=== PATIENT | male | born 1945 | race American Indian/Alaskan Native ===

== ENCOUNTER 2017-04-15 08:36 | Outpatient (CLI) | payer MEDICARE ==
--- NOTE | 2017-04-16 07:57 | Cat Scan Report ---
CT ABDOMEN PELVIS WITHOUT CONTRAST: HISTORY: Malignant neoplasm of prostate. COMPARISON: 08/18/13. TECHNIQUE: Helical CT in 1.25mm intervals without IV contrast. Sagittal and coronal reconstructions. FINDINGS: Lung bases: The visualized lung bases are adequately aerated. Minor atelectatic changes are noted. No nodule, infiltrate or pleural effusion. Liver: Normal. Biliary system: Normal. Pancreas: Normal. Spleen: Normal. Kidneys/ureters/bladder: Normal. Adrenal glands: Normal. Aorta: Normal. Intestines: Mild diverticulosis of the colon is unchanged. No acute inflammatory changes, focal bowel wall thickening or obstruction. Appendix: Normal. Pelvic viscera: The prostate gland remains mildly enlarged measuring 5.8 x 4.5 cm in axial plane. Ascites: None. Adenopathy: No pathologic adenopathy has developed. Musculoskeletal: Moderate thoracolumbar spondylosis is stable. No blastic bony lesions consistent with bony metastasis are identified. IMPRESSION: No evidence for metastatic disease on noncontrast CT. Mild colonic diverticulosis, stable. Thoracolumbar spondylosis, stable. Mild prostatic enlargement.
--- NOTE | 2017-04-16 08:04 | Nuclear Medicine Report ---
BONE SCAN: History: Initial staging of prostate cancer. Comparison: No previous bone scan. Correlation is made with the CT abdomen pelvis without contrast performed the same day. Findings: There is normal renal and soft tissue activity. Contamination in the perineum is noted. Injection site in the left hand is noted. There is moderate degenerative uptake in the shoulders, sternoclavicular joints, right knee and feet consistent with degenerative change. There is moderate uptake throughout the thoracic spine which is most pronounced near the T10 or T11 level. There is extensive degenerative disc disease at this level on CT. There is local also focal uptake at the level of L4-5 consistent with facet arthropathy. No convincing metastatic pattern is identified. IMPRESSION: Degenerative uptake as described. No evidence for metastatic disease to the bones.
== END 2017-04-15 08:37 | disposition home or self-care (01) ==
LOC: NM 08:36
PROVIDERS: ATTEND Urology
DX: C61 Malignant neoplasm of prostate (principal); K57.30 Diverticulosis of large intestine without perforation or abscess without bleeding; N40.0 Benign prostatic hyperplasia without lower urinary tract symptoms; M47.894 Other spondylosis, thoracic region; M51.34 Other intervertebral disc degeneration, thoracic region; I10 Essential (primary) hypertension; I25.10 Atherosclerotic heart disease of native coronary artery without angina pectoris; E78.00 Pure hypercholesterolemia, unspecified
CPT/HCPCS: 74176; 78306; A9503

== ENCOUNTER 2017-09-01 06:02 | Observation (INO) | payer MEDICARE ==
[2017-08-26 09:53] LABS: Basophils % (Auto) 0.8 % (0.0-1.8); Eosinophils # (Auto) 0.3 K/mm3 (0.0-0.4); Eosinophils % (Auto) 5.5 % (0.0-4.3); Hemoglobin 14.5 gm/dl (11.8-15.2); Lymphocytes % (Auto) 42.4 % (13.4-35.0); Mean Corpuscular HGB Conc 33 % (32-34); Mean Corpuscular Hemoglobin 26 pg (28-32); Mean Corpuscular Volume 79 fl (84-94); Monocytes # (Auto) 0.4 K/mm3 (0.0-0.8); Monocytes % (Auto) 8.9 % (0.0-7.3); Platelet Count 295 K/mm3 (140-440); Red Blood Count 5.58 M/mm3 (3.65-5.03); Red Cell Distribution Width 14.4 % (13.2-15.2)
[2017-08-26 10:05] LABS: INR 0.88 (0.87-1.13)
[2017-08-26 10:06] LABS: Partial Thromboplastin Time 31.1 Sec. (24.2-36.6)
[2017-08-26 10:10] LABS: Albumin 4.1 g/dL (3.9-5); Calcium 9.3 mg/dL (8.4-10.2)
--- NOTE | 2017-08-28 12:18 | Anesthesia Consultation ---
Anesthesia Consult and Med Hx Date of service: 08/28/17 - Airway Anesthetic Teeth Evaluation: Good ROM Head & Neck: Adequate Mental/Hyoid Distance: Adequate Mallampati Class: Class II Intubation Access Assessment: Probably Good - Pulmonary Exam CTA: Yes - Cardiac Exam Cardiac Exam: RRR - Pre-Operative Health Status ASA Pre-Surgery Classification: ASA3 Proposed Anesthetic Plan: General (pending cardiac clear, pt reported angina, SOB) - Pulmonary Hx Smoking: Yes (CHEWING TOBACCO) SOB: Yes Hx Sleep Apnea: No (WENDY PRE SCREEN HIGH RISK) - Cardiovascular System Hx Hypertension: Yes (X 8 YRS) Hx Coronary Artery Disease: Yes Hx Heart Attack/AMI: No - Central Nervous System CVA: Yes (5 YRS AGO , RT SIDED WEAKNESS-STATES NO BLOOD THINNERS) Hx Back Pain: Yes Hx Psychiatric Problems: No - Gastrointestinal Hx Gastroesophageal Reflux Disease: Yes (takes ranatidine) - Hematic Hx Anemia: No - Other Systems Hx Alcohol Use: No Hx Substance Use: No Hx Cancer: No
[~2017-09-01 06:02] MED LIST: NEURONTIN PO NR; PEPCID IV NR
[2017-09-01] MEDS ORDERED: NACL BACTERIOSTATIC INFILTRATI ONE (06:37)
[2017-09-01] MEDS: LACTATED RINGERS 1,000 ML IV SCH ×2 (06:50→17:02)
[2017-09-01] MEDS ORDERED: ANCEF/STERILE WATER 2 GM/20 ML IV NR (07:00)
[2017-09-01] MEDS ORDERED: ZEMURON IV ONE ×2 (07:20→10:08)
[2017-09-01] MEDS ORDERED: XYLOCAINE MPF 2% ONE (07:20)
[2017-09-01] MEDS ORDERED: K-DUR PO NR (07:25)
[2017-09-01] MEDS ORDERED: DILAUDID ONE (07:28)
[2017-09-01] MEDS ORDERED: DIPRIVAN 10 MG/ML IV ONE (07:28)
[2017-09-01] MEDS ORDERED: ZOFRAN IV PRN ×2 (07:32→11:27)
--- NOTE | 2017-09-01 07:32 | Anesthesia Day of Surgery ---
Anesthesia Day of Surgery - Day of Surgery Patient Examined: Yes Patient H&P Reviewed: Yes Patient is NPO: Yes
[2017-09-01] MEDS ORDERED: NACL 0.9% 100 ML ONE (07:38)
[2017-09-01] MEDS ORDERED: METHYLENE BLUE ONE (07:43)
[2017-09-01] MEDS ORDERED: LACTATED RINGERS 1,000 ML IV SCH (08:00)
[2017-09-01] MEDS ORDERED: VERSED IV NR (08:00)
[2017-09-01] MEDS ORDERED: LACTATED RINGERS 1,000 ML ONE ×3 (08:11→10:01)
[2017-09-01] MEDS ORDERED: CALCIUM CHLORIDE IV ONE ×2 (08:12→10:27)
[2017-09-01] MEDS ORDERED: ACD-A 500 ML IV ONE (08:12)
[2017-09-01] MEDS ORDERED: THROMBIN (BOVINE) TP ONE ×2 (08:12→10:27)
[2017-09-01] MEDS ORDERED: ePHEDrine SULFATE ONE (09:57)
[2017-09-01] MEDS ORDERED: DEXMEDETOMIDINE IV ONE (10:00)
[2017-09-01] MEDS ORDERED: MARCAINE 0.5% 30 ML INFILTRATI ONE (10:25)
[2017-09-01] MEDS ORDERED: WATER FOR IRRIG STERILE IR ONE (10:27)
[2017-09-01] MEDS ORDERED: ACD-A IV ONE (10:27)
[2017-09-01] MEDS ORDERED: MARCAINE 0.5% INFILTRATI ONE (10:27)
[2017-09-01] MEDS ORDERED: NACL 0.9% IR ONE (10:27)
[2017-09-01] MEDS ORDERED: ZOFRAN ONE (10:34)
[2017-09-01] MEDS ORDERED: ROBINUL ONE (10:34)
[2017-09-01] MEDS ORDERED: NEOSTIGMINE ONE (10:34)
--- NOTE | 2017-09-01 11:25 | Short Stay Summary ---
Short Stay Documentation Date of service: 09/01/17 - History H&P: obtained from office - Allergies and Medications Current Medications: Allergies meperidine [From Demerol] Allergy (Verified 08/22/17 11:31) Itching Home Medications Medication Instructions Recorded Confirmed Last Taken Type Amlodipine Besylate 10 mg PO DAILY 02/23/15 08/22/17 09/01/17 05:15 History Ibuprofen [Motrin 600 MG tab] 600 mg PO TID PRN 04/06/15 09/01/17 08/22/17 History Clopidogrel Bisulfate [Plavix] 75 mg PO DAILY 08/26/17 09/01/17 08/26/17 History Losartan/Hydrochlorothiazide 1 each PO DAILY 08/26/17 08/26/17 09/01/17 05:15 History [Losartan-Hctz 100-25 mg Tab] Pregabalin [Lyrica] 75 mg PO BID 08/26/17 08/26/17 09/01/17 05:15 History Simvastatin [Zocor TAB] 20 mg PO QHS 08/26/17 09/01/17 08/31/17 History Active Medications Cefazolin Sodium (Ancef/Sterile Water 2 Gm/20 Ml) 2 gm IV PREOP NR Stop: 09/01/17 23:59 Celecoxib (Celebrex) 200 mg PO PREOP NR Stop: 09/01/17 23:59 Last Admin: 09/01/17 06:40 Dose: 200 mg Famotidine (Pepcid) 20 mg IV PREOP NR Stop: 09/01/17 23:59 Last Admin: 09/01/17 07:08 Dose: 20 mg Gabapentin (Neurontin) 300 mg PO PREOP NR Stop: 09/01/17 23:59 Last Admin: 09/01/17 06:40 Dose: 300 mg Hydromorphone HCl (Dilaudid) 0.5 mg IV Q10MIN PRN PRN Reason: Pain , Severe (7-10) Stop: 09/01/17 16:00 Lactated Ringer's (Lactated Ringers) 1,000 mls @ 100 mls/hr IV DIRECT ADAMA Last Admin: 09/01/17 06:50 Dose: 100 mls/hr Lactated Ringer's (Lactated Ringers) 1,000 mls @ 125 mls/hr IV DIRECT ADAMA Potassium Chloride (Kcl 10meq/100ml) 10 meq in 100 mls @ 100 mls/hr IV Q1H ADAMA Stop: 09/01/17 11:59 Midazolam HCl (Versed) 2 mg IV PREOP NR Stop: 09/01/17 23:59 Ondansetron HCl (Zofran) 4 mg IV ONCE PRN PRN Reason: Nausea And Vomiting Stop: 09/01/17 16:00 Potassium Chloride (K-Dur) 40 meq PO ONCE NR Stop: 09/01/17 12:00 Last Admin: 09/01/17 07:45 Dose: 40 meq - Brief post op/procedure progress note Date of procedure: 09/01/17 Pre-op diagnosis: prostate ca (psa 24, ollie Post-op diagnosis: same Procedure: robotic prostatectomy Anesthesia: GETA Surgeon: ELENA CASTRO Estimated blood loss: other (300c) Pathology: list (prostate, prostate node) Specimen disposition: to lab Condition: stable - Hospital course Hospital course: norco,cipro, post op info on chart toan removed k trending up--pt to finish kcl (pre op ) & f/u with pcp (Dr. Garrido) - Disposition Condition at discharge: Stable Short Stay Discharge Plan Follow up with: JOSSELYN GARRIDO MD [Primary Care Provider] - 7 Days
[2017-09-01] MEDS ORDERED: AMBIEN PO PRN (11:27)
[2017-09-01] MEDS ORDERED: NARCAN 0.4 MG/1 ML IV PRN (11:27)
[2017-09-01] MEDS: DILAUDID IV PRN ×2 (11:54→12:04)
[2017-09-01] MEDS ORDERED: ANCEF/NS 1 GM/50 ML 1 GM/50 ML BAG IV SCH (12:00)
--- NOTE | 2017-09-01 12:26 | Post Anesthesia Evaluation ---
- Post Anesthesia Evaluation Patient Participated: Yes Airway Patent: Yes Stable Respiratory Function: Yes Nausea/Vomiting: No Temp > 96.8F: Yes Pain Manageable: Yes Adequeate Hydration: Yes Anesthesia Complications: No
[2017-09-01] MEDS: MORPHINE IV PRN ×2 (14:21→22:20)
[2017-09-01 14:38] LABS: Hematocrit 36.2 % (35.5-45.6); Hemoglobin 12.4 gm/dl (11.8-15.2); Mean Corpuscular HGB Conc 34 % (32-34); Mean Corpuscular Hemoglobin 27 pg (28-32); Mean Corpuscular Volume 78 fl (84-94); Platelet Count 247 K/mm3 (140-440); Red Blood Count 4.67 M/mm3 (3.65-5.03); Red Cell Distribution Width 14.2 % (13.2-15.2)
[2017-09-01 14:59] LABS: BUN/Creatinine Ratio 17; Blood Urea Nitrogen 19 mg/dL (9-20); Calcium 8.7 mg/dL (8.4-10.2); Hemolysis Index 1
--- NOTE | 2017-09-01 15:09 | Operative Report ---
PREOPERATIVE DIAGNOSES: Prostate cancer, PSA 24, Amairani score of 6. POSTOPERATIVE DIAGNOSES: Prostate cancer, PSA 24, Amairani score of 6. PROCEDURE: Robotic-assisted laparoscopic prostatectomy. SURGEON: Jin Katz MD CLASSIFICATION INSPECTOR: Tigist Clemente. ANESTHESIA: General. ESTIMATED BLOOD LOSS: 300 mL. FLUIDS: Crystalloid 125 of Cell Saver. COMPLICATIONS: No complications. DRAINS: Brennon-Singleton drain x 1. INDICATIONS: This patient is a 72-year-old gentleman who has been followed in by our service for erectile dysfunction and BPH. He has had a biopsy in 2009 for PSA of 7.8, which was negative, repeated in 2011, which was negative. Prostate ultrasound revealed a 70 gram gland. His PSA increased to 20 and repeat was 24. Biopsy in 02/2017 revealed a Amairani 6 adenocarcinoma of the prostate, left side. Bone scan, CT scan was negative except for some degenerative joint disease. The patient was noted to have a left inguinal hernia and wanted evaluation at the same time. DESCRIPTION OF PROCEDURE: The patient was taken to the operative suite, placed in a supine position. After adequate general anesthesia, he was placed in a modified dorsal lithotomy position, prepped and draped in a sterile fashion. Mack catheter was placed on the operative field. A 1 cm supraumbilical incision was made. Towel clips were placed. Anterior traction allowed Veress needle to be placed. Drop test was negative. Opening pressure was 1 cm of water. Insufflation to 15 cm of water was performed without difficulty. A 15 cm cephalad to the pubic symphysis was marked, 10 cm lateral and additional 10 cm lateral was marked and after a 10 mm port was placed in the supraumbilical incision, the rest of the ports were placed under direct vision. No intraabdominal injury could be appreciated. No signs of metastasis. Surveillance of the abdomen to look at the left inguinal hernia, the patient had adhesions in that area on the left side making it very difficult to approach it intraabdominally and therefore, attempts to repair were not done. The second arch posterior to the prostate and bladder was identified. It was scored exposing the seminal vesicles and vas deferens. Dissection to the apex of the prostate was performed without difficulty. Seminal vesicles and vas deferens were dissected out. Vas deferens was then transected. Attention was then taken to the anterior abdominal wall, which was scored lateral to the lateral umbilical ligament. Bladder flap was taken down exposing the pubic rami. Endopelvic fascia was opened bilaterally without difficulty. Dorsal vein complex was controlled with a 60 mm vascular stapler without difficulty. Manipulation with the Mack was performed to identify the bladder neck, dissection of anterior bladder neck was performed exposing the Mack catheter, appeared to have a node at this area which was dissected out and sent to pathology for routine evaluation. Mack catheter could be appreciated, balloon was deflated, then used for anterior traction. Posterior bladder neck was transected exposing the seminal vesicles and vas deferens. They were pulled up anteriorly. Lateral pedicles were transected with a 60 mm vascular stapler. Dissection was taken to the apex of the prostate, which was dissected off and then placed in the EndoCatch bag and retracted laterally. Copious irrigation was performed. Adequate hemostasis achieved. Bladder neck reconstruction was performed at the 5 o'clock position using 2-0 Vicryl in an interrupted fashion. Double armed V-Loc stitch was placed at the 6 o'clock position of the bladder neck corresponding aspect of the urethra. The 2-0 Vicryl helper stitch was placed at the 12 o'clock position of the bladder neck. Running V-Loc stitch was performed bilaterally. A new 18-Tajik Mack catheter was placed into the bladder. Anastomosis was cinched down. It was irrigated. No clot in the irrigant. Mack catheter was in good position, 15 mL of sterile water. An anterior abdominal wall stitch was placed with the V-Loc stitch to allow better continence. Platelet rich plasma and platelet poor plasma was injected around the prostatic fossa and anastomosis. The platelet membrane was placed on the anastomosis. A 10 mm Brennon-Singleton drain was brought out through the left-sided port, tied into position with 2-0 silk. The robotic cart was undocked. The prostate was transferred to the supraumbilical incision which was extended to allow removal. Rectus fascia was closed using a 2-0 Vicryl in interrupted fashion. Skin was closed with a 3-0 Monocryl in interrupted fashion, 2-0 silk was used to secure the Brennon-Singleton drain. Mack catheter site port was tied over, was folded over and secured with a 0 silk in interrupted fashion. The patient tolerated the procedure well and was extubated and taken to recovery room. He will be observed overnight and go home on [facility]. JOB# [id number] ZEN/BRENDA
[2017-09-01] MEDS: KCL 10MEQ/100ML 10 MEQ/100 ML BAG IV SCH ×2 (15:38→15:39)
[2017-09-01] MEDS: ceFAZolin 1 GM in NACL 0.9% 20 ML IV SCH (15:58)
[2017-09-01] MEDS ORDERED: K-DUR PO ONE (16:00)
[2017-09-01 16:06] LABS: Basophils % (Manual) 0 % (0.0-1.8); Eosinophils % (Manual) 0 % (0.0-4.3); Total Cells Counted 100
[2017-09-01 16:07] LABS: Anisocytosis 1+; Ovalocytes Few
[2017-09-01] MEDS: NORCO 5/325 PO PRN (16:16)
[2017-09-01] MEDS ORDERED: PRAVACHOL PO SCH (22:00)
[2017-09-01] MEDS ORDERED: NON-FORMULARY (Simvastatin 20 MG) PO SCH (22:00)
[2017-09-01] MEDS ORDERED: ceFAZolin 1 GM in NACL 0.9% 20 ML IV SCH (22:00)
[2017-09-01] MEDS: LYRICA PO SCH (22:21)
[2017-09-02] MEDS: LACTATED RINGERS 1,000 ML IV SCH (03:23)
[2017-09-02] MEDS: ceFAZolin 1 GM in NACL 0.9% 20 ML IV SCH (03:28)
[2017-09-02 05:24] LABS: Basophils % (Auto) 0.4 % (0.0-1.8); Eosinophils % (Auto) 0.7 % (0.0-4.3); Hematocrit 38.1 % (35.5-45.6); Hemoglobin 12.3 gm/dl (11.8-15.2); Lymphocytes # (Auto) 1.5 K/mm3 (1.2-5.4); Mean Corpuscular HGB Conc 32 % (32-34); Mean Corpuscular Volume 79 fl (84-94); Monocytes # (Auto) 0.4 K/mm3 (0.0-0.8); Monocytes % (Auto) 5.9 % (0.0-7.3); Platelet Count 267 K/mm3 (140-440); Red Blood Count 4.82 M/mm3 (3.65-5.03); Red Cell Distribution Width 14.3 % (13.2-15.2)
[2017-09-02 05:36] LABS: Mean Corpuscular Hemoglobin 26 pg (28-32)
[2017-09-02 05:42] LABS: BUN/Creatinine Ratio 12; Blood Urea Nitrogen 14 mg/dL (9-20); Calcium 8.6 mg/dL (8.4-10.2); Hemolysis Index 2
--- NOTE | 2017-09-02 06:44 | History and Physical Report ---
History of Present Illness Date of admission: 09/01/17 11:27 Chief complaint: I got this catheter in History of present illness: 72 YO Male with Obesity,GERD, WENDY, HTN, CAD, Lumbar Pain, CVA, NIcotine Dependence, CAP S/P Prostatectomy. Consult placed for medical management. Pt seen and evaluated postoperatively. Pt resting comfortably. Pt denies fever, chills, CP, Palpitations, NVD, Syncope, Headache, Productive cough, or skin rash. No reported nursing events. Pt states that his pain in controlled. Pt and daughter at bedside. Past History Past Medical History: CAD, cancer, GERD, hypertension, stroke Past Surgical History: Other (Prostatectomy) Social history: smoking Family history: hypertension Medications and Allergies Allergies Allergy/AdvReac Type Severity Reaction Status Date / Time meperidine [From Demerol] Allergy Itching Verified 08/22/17 11:31 Home Medications Medication Instructions Recorded Confirmed Last Taken Type Amlodipine Besylate 10 mg PO DAILY 02/23/15 08/22/17 09/01/17 05:15 History Ibuprofen [Motrin 600 MG tab] 600 mg PO TID PRN 04/06/15 09/01/17 08/22/17 History Clopidogrel Bisulfate [Plavix] 75 mg PO DAILY 08/26/17 09/01/17 08/26/17 History Losartan/Hydrochlorothiazide 1 each PO DAILY 08/26/17 08/26/17 09/01/17 05:15 History [Losartan-Hctz 100-25 mg Tab] Pregabalin [Lyrica] 75 mg PO BID 08/26/17 08/26/17 09/01/17 05:15 History Simvastatin [Zocor TAB] 20 mg PO QHS 08/26/17 09/01/17 08/31/17 History Active Meds: Active Medications Acetaminophen/Hydrocodone Bitart (Jet 5/325) 2 each PO Q4H PRN PRN Reason: Pain, Moderate (4-6) Last Admin: 09/01/17 16:16 Dose: 2 each Amlodipine Besylate (Norvasc) 10 mg PO DAILY ADAMA Hydrochlorothiazide (Hctz) 25 mg PO QDAY ADAMA Lactated Ringer's (Lactated Ringers) 1,000 mls @ 100 mls/hr IV DIRECT ADAMA Last Admin: 09/02/17 03:23 Dose: 100 mls/hr Lactated Ringer's (Lactated Ringers) 1,000 mls @ 125 mls/hr IV DIRECT [facility] Losartan Potassium (Cozaar) 100 mg PO QDAY [facility] Morphine Sulfate (Morphine) 2 mg IV Q4H PRN PRN Reason: Pain, Moderate (4-6) Last Admin: 09/01/17 22:20 Dose: 2 mg Naloxone HCl (Narcan 0.4 Mg/1 Ml) 0.1 mg IV Q2MIN PRN PRN Reason: Res Rate </= 8 or 02 SAT < 92% Ondansetron HCl (Zofran) 4 mg IV Q8H PRN PRN Reason: Nausea And Vomiting Pravastatin Sodium (Pravachol) 40 mg PO QHS [facility] Last Admin: 09/01/17 23:12 Dose: 40 mg Pregabalin (Lyrica) 75 mg PO BID [facility] Last Admin: 09/01/17 22:21 Dose: 75 mg Zolpidem Tartrate (Ambien) 5 mg PO QHS PRN PRN Reason: Sleep Review of Systems Constitutional: no weight loss, no weight gain, no fever, no chills Ears, nose, mouth and throat: no ear pain, no ear discharge, no tinnitis, no decreased hearing, no nose pain, no nasal congestion Cardiovascular: no chest pain, no orthopnea, no palpitations, no rapid/ irregular heart beat, no edema, no syncope Respiratory: no cough, no cough with sputum, no excessive sputum, no hemoptysis , no shortness of breath Gastrointestinal: no abdominal pain, no nausea, no vomiting, no diarrhea Genitourinary Male: no hematuria, no flank pain, no discharge, no urinary frequency, no urinary hesitancy Rectal: no pain, no incontinence, no bleeding Musculoskeletal: no neck stiffness, no neck pain, no shooting arm pain, no arm numbness/tingling, no low back pain, no shooting leg pain, no leg numbness/ tingling Integumentary: no rash, no pruritis, no redness, no sores, no wounds, no jaundice Neurological: no head injury, no transient paralysis, no paralysis, no parathesias, no numbness, no tingling, no seizures, no syncope Psychiatric: no anxiety, no memory loss, no change in sleep habits, no sleep disturbances Endocrine: no cold intolerance, no heat intolerance, no polyphagia, no excessive thirst, no weight change Hematologic/Lymphatic: no easy bruising, no easy bleeding, no lymphadenopathy, no lymphedema Allergic/Immunologic: no urticaria, no allergic rhinitis, no wheezing, no persistent infections, no anaphylaxis, no angioedema Exam - Constitutional Vitals: Temp Pulse Resp BP Pulse Ox 98.6 F 68 17 112/58 98 09/02/17 04:33 09/02/17 04:33 09/02/17 04:33 09/02/17 04:33 09/02/17 04:33 General appearance: Present: no acute distress, well-nourished - EENT Eyes: Present: PERRL ENT: hearing intact, clear oral mucosa - Neck Neck: Present: supple, normal ROM - Respiratory Respiratory effort: normal Respiratory: bilateral: CTA - Cardiovascular Heart Sounds: Present: S1 & S2. Absent: rub, click - Extremities Extremities: pulses symmetrical, No edema Peripheral Pulses: within normal limits - Abdominal General gastrointestinal: Present: soft, non-tender, non-distended, normal bowel sounds Male genitourinary: Present: normal - Integumentary Integumentary: Present: clear, warm, dry - Musculoskeletal Musculoskeletal: gait normal, strength equal bilaterally - Psychiatric Psychiatric: appropriate mood/affect, intact judgment & insight - Neurologic Neurologic: CNII-XII intact, moves all extremities Results - Labs CBC & Chem 7: 09/02/17 04:08 09/02/17 04:08 Labs: Abnormal lab results 09/01/17 09/01/17 09/01/17 Range/Units 06:50 13:58 13:58 MCV 78 L (84-94) fl MCH 27 L (28-32) pg Seg Neutrophils % (40.0-70.0) % Seg Neuts % (Manual) 96.0 H (40.0-70.0) % Lymphocytes % (Manual) 2.0 L (13.4-35.0) % Seg Neutrophils # Man 9.7 H (1.8-7.7) K/mm3 Lymphocytes # (Manual) 0.2 L (1.2-5.4) K/mm3 Potassium 2.5 L* 2.7 L* (3.6-5.0) mmol/L Glucose 133 H (75-100) mg/dL 09/02/17 09/02/17 Range/Units 04:08 04:08 MCV 79 L (84-94) fl MCH 26 L (28-32) pg Seg Neutrophils % 72.0 H (40.0-70.0) % Seg Neuts % (Manual) (40.0-70.0) % Lymphocytes % (Manual) (13.4-35.0) % Seg Neutrophils # Man (1.8-7.7) K/mm3 Lymphocytes # (Manual) (1.2-5.4) K/mm3 Potassium 2.8 L* (3.6-5.0) mmol/L Glucose (75-100) mg/dL Assessment and Plan - Patient Problems (1) Obesity Current Visit: Yes Status: Acute Qualifiers: Body mass index: BMI 32.0-32.9 Plan to address problem: Increased physical activity, balanced diet at discharge. (2) Nicotine dependence Current Visit: Yes Status: Acute Qualifiers: Substance use status: in withdrawal Plan to address problem: supportive care, Nicotine Cessation counseling. (3) WENDY (obstructive sleep apnea) Current Visit: Yes Status: Acute Plan to address problem: supplemental oxygen, nebulizer therapy prn, NIPPV as clinically indicated, Incentive spirometry to patient. (4) Hypertension Current Visit: No Status: Chronic Qualifiers: Hypertension type: essential hypertension Qualified Code(s): I10 - Essential (primary) hypertension Plan to address problem: monitor bp q shift, IV hydralazine prn, (5) DVT prophylaxis Current Visit: Yes Status: Acute
[2017-09-02] MEDS: NORCO 5/325 PO PRN (09:01)
[2017-09-02 09:02] VITALS: BP 136/70
[2017-09-02] MEDS: LYRICA PO SCH (09:02)
[2017-09-02] MEDS ORDERED: COZAAR PO SCH (10:00)
[2017-09-02] MEDS ORDERED: NON-FORMULARY (Losartan/Hydrochlorothiazide [Losartan-Hctz 100-25 Mg Tab] 1 EACH) PO SCH (10:00)
[2017-09-02] MEDS ORDERED: HCTZ PO SCH (10:00)
[2017-09-02] MEDS ORDERED: NORVASC PO SCH (10:00)
[2017-09-02] MEDS ORDERED: NACL 0.9% 1000 ML 1,000 ML with KCL 80 MEQ IV ONE (16:07)
--- NOTE | 2017-09-02 16:10 | Progress Note ---
Assessment and Plan Assessment and plan: 72 YO Male with Obesity,GERD, WENDY, HTN, CAD, Lumbar Pain, CVA, NIcotine Dependence, CAP S/P Prostatectomy. Consult placed for medical management. Pt seen and evaluated postoperatively. Pt resting comfortably. Pt denies fever, chills, CP, Palpitations, NVD, Syncope, Headache, Productive cough, or skin rash. No reported nursing events. Pt states that his pain in controlled. Pt and daughter at bedside. (1) Obesity Current Visit: Yes Status: Acute Qualifiers: Body mass index: BMI 32.0-32.9 Plan to address problem: Increased physical activity, balanced diet at discharge. (2) Nicotine dependence Current Visit: Yes Status: Acute Qualifiers: Substance use status: in withdrawal Plan to address problem: supportive care, Nicotine Cessation counseling. (3) WENDY (obstructive sleep apnea) Current Visit: Yes Status: Acute Plan to address problem: supplemental oxygen, nebulizer therapy prn, NIPPV as clinically indicated, Incentive spirometry to patient. (4) Hypertension Current Visit: No Status: Chronic Qualifiers: Hypertension type: essential hypertension Qualified Code(s): I10 - Essential (primary) hypertension Plan to address problem: monitor bp q shift, IV hydralazine prn, LOW POTASSIUM -replete IV (5) DVT prophylaxis Current Visit: Yes Status: Acute Hospitalist Physical - Constitutional Vitals: Temp Pulse Resp BP Pulse Ox 98.6 F 54 L 20 136/70 98 09/02/17 04:33 09/02/17 09:01 09/02/17 09:01 09/02/17 09:01 09/02/17 04:33 General appearance: Present: no acute distress, well-nourished Results - Labs CBC & Chem 7: 09/02/17 04:08 09/02/17 04:08 Labs: Laboratory Last Values WBC 7.1 K/mm3 (4.5-11.0) 09/02/17 04:08 RBC 4.82 M/mm3 (3.65-5.03) 09/02/17 04:08 Hgb 12.3 gm/dl (11.8-15.2) 09/02/17 04:08 Hct 38.1 % (35.5-45.6) 09/02/17 04:08 MCV 79 fl (84-94) L 09/02/17 04:08 MCH 26 pg (28-32) L 09/02/17 04:08 MCHC 32 % (32-34) 09/02/17 04:08 RDW 14.3 % (13.2-15.2) 09/02/17 04:08 Plt Count 267 K/mm3 (140-440) 09/02/17 04:08 Lymph % (Auto) 21.0 % (13.4-35.0) 09/02/17 04:08 Meagher % (Auto) 5.9 % (0.0-7.3) 09/02/17 04:08 Eos % (Auto) 0.7 % (0.0-4.3) 09/02/17 04:08 Baso % (Auto) 0.4 % (0.0-1.8) 09/02/17 04:08 Lymph # 1.5 K/mm3 (1.2-5.4) 09/02/17 04:08 Meagher # 0.4 K/mm3 (0.0-0.8) 09/02/17 04:08 Eos # 0.0 K/mm3 (0.0-0.4) 09/02/17 04:08 Baso # 0.0 K/mm3 (0.0-0.1) 09/02/17 04:08 Add Manual Diff Complete 09/01/17 13:58 Total Counted 100 09/01/17 13:58 Seg Neutrophils % 72.0 % (40.0-70.0) H 09/02/17 04:08 Seg Neuts % (Manual) 96.0 % (40.0-70.0) H 09/01/17 13:58 Band Neutrophils % 0 % 09/01/17 13:58 Lymphocytes % (Manual) 2.0 % (13.4-35.0) L 09/01/17 13:58 Reactive Lymphs % (Man) 0 % 09/01/17 13:58 Monocytes % (Manual) 2.0 % (0.0-7.3) 09/01/17 13:58 Eosinophils % (Manual) 0 % (0.0-4.3) 09/01/17 13:58 Basophils % (Manual) 0 % (0.0-1.8) 09/01/17 13:58 Metamyelocytes % 0 % 09/01/17 13:58 Myelocytes % 0 % 09/01/17 13:58 Promyelocytes % 0 % 09/01/17 13:58 Blast Cells % 0 % 09/01/17 13:58 Nucleated RBC % Not Reportable 09/01/17 13:58 Seg Neutrophils # 5.1 K/mm3 (1.8-7.7) 09/02/17 04:08 Seg Neutrophils # Man 9.7 K/mm3 (1.8-7.7) H 09/01/17 13:58 Band Neutrophils # 0.0 K/mm3 09/01/17 13:58 Lymphocytes # (Manual) 0.2 K/mm3 (1.2-5.4) L 09/01/17 13:58 Abs React Lymphs (Man) 0.0 K/mm3 09/01/17 13:58 Monocytes # (Manual) 0.2 K/mm3 (0.0-0.8) 09/01/17 13:58 Eosinophils # (Manual) 0.0 K/mm3 (0.0-0.4) 09/01/17 13:58 Basophils # (Manual) 0.0 K/mm3 (0.0-0.1) 09/01/17 13:58 Metamyelocytes # 0.0 K/mm3 09/01/17 13:58 Myelocytes # 0.0 K/mm3 09/01/17 13:58 Promyelocytes # 0.0 K/mm3 09/01/17 13:58 Blast Cells # 0.0 K/mm3 09/01/17 13:58 WBC Morphology Not Reportable 09/01/17 13:58 Hypersegmented Neuts Not Reportable 09/01/17 13:58 Hyposegmented Neuts Not Reportable 09/01/17 13:58 Hypogranular Neuts Not Reportable 09/01/17 13:58 Smudge Cells Not Reportable 09/01/17 13:58 Toxic Granulation Not Reportable 09/01/17 13:58 Toxic Vacuolation Not Reportable 09/01/17 13:58 Dohle Bodies Not Reportable 09/01/17 13:58 Pelger-Huet Anomaly Not Reportable 09/01/17 13:58 Darrin Rods Not Reportable 09/01/17 13:58 Platelet Estimate Appears normal 09/01/17 13:58 Clumped Platelets Not Reportable 09/01/17 13:58 Plt Clumps, EDTA Not Reportable 09/01/17 13:58 Large Platelets Not Reportable 09/01/17 13:58 Giant Platelets Not Reportable 09/01/17 13:58 Platelet Satelliting Not Reportable 09/01/17 13:58 Plt Morphology Comment Not Reportable 09/01/17 13:58 RBC Morphology Not Reportable 09/01/17 13:58 Dimorphic RBCs Not Reportable 09/01/17 13:58 Polychromasia Not Reportable 09/01/17 13:58 Hypochromasia Not Reportable 09/01/17 13:58 Poikilocytosis Not Reportable 09/01/17 13:58 Anisocytosis 1+ 09/01/17 13:58 Microcytosis Not Reportable 09/01/17 13:58 Macrocytosis Not Reportable 09/01/17 13:58 Spherocytes Not Reportable 09/01/17 13:58 Pappenheimer Bodies Not Reportable 09/01/17 13:58 Sickle Cells Not Reportable 09/01/17 13:58 Target Cells Not Reportable 09/01/17 13:58 Tear Drop Cells Not Reportable 09/01/17 13:58 Ovalocytes Few 09/01/17 13:58 Helmet Cells Not Reportable 09/01/17 13:58 [place] Bodies Not Reportable 09/01/17 13:58 [place] Rings Not Reportable 09/01/17 13:58 Kiko Cells Not Reportable 09/01/17 13:58 Bite Cells Not Reportable 09/01/17 13:58 Crenated Cell Not Reportable 09/01/17 13:58 Elliptocytes Not Reportable 09/01/17 13:58 Acanthocytes (Spur) Not Reportable 09/01/17 13:58 Rouleaux Not Reportable 09/01/17 13:58 Hemoglobin C Crystals Not Reportable 09/01/17 13:58 Schistocytes Not Reportable 09/01/17 13:58 Malaria parasites Not Reportable 09/01/17 13:58 Magen Bodies Not Reportable 09/01/17 13:58 Hem Pathologist Commnt No 09/01/17 13:58 PT 12.4 Sec. (12.2-14.9) 08/26/17 09:20 INR 0.88 (0.87-1.13) 08/26/17 09:20 APTT 31.1 Sec. (24.2-36.6) 08/26/17 09:20 Sodium 141 mmol/L (137-145) 09/02/17 04:08 Potassium 2.8 mmol/L (3.6-5.0) L* 09/02/17 04:08 Chloride 99.9 mmol/L (98-107) 09/02/17 04:08 Carbon Dioxide 29 mmol/L (22-30) 09/02/17 04:08 Anion Gap 15 mmol/L 09/02/17 04:08 BUN 14 mg/dL (9-20) 09/02/17 04:08 Creatinine 1.2 mg/dL (0.8-1.5) 09/02/17 04:08 Estimated GFR > 60 ml/min 09/02/17 04:08 BUN/Creatinine Ratio 12 % 09/02/17 04:08 Glucose 98 mg/dL (75-100) 09/02/17 04:08 Calcium 8.6 mg/dL (8.4-10.2) 09/02/17 04:08 Total Bilirubin 0.50 mg/dL (0.1-1.2) 08/26/17 09:20 AST 21 units/L (5-40) 08/26/17 09:20 ALT 13 units/L (7-56) 08/26/17 09:20 Alkaline Phosphatase 85 units/L (35-129) 08/26/17 09:20 Total Protein 7.8 g/dL (6.3-8.2) 08/26/17 09:20 Albumin 4.1 g/dL (3.9-5) 08/26/17 09:20 Albumin/Globulin Ratio 1.1 % 08/26/17 09:20 Blood Type O POSITIVE 09/01/17 06:50 Antibody Screen Negative 09/01/17 06:50
== END 2017-09-02 13:00 | disposition home or self-care (01) ==
LOC: OR 06:02 → 3B-SURG 11:27
PROVIDERS: ADMIT Urology; ATTEND Urology
DX: C61 Malignant neoplasm of prostate (principal); K21.9 Gastro-esophageal reflux disease without esophagitis; G47.33 Obstructive sleep apnea (adult) (pediatric); I10 Essential (primary) hypertension; I25.10 Atherosclerotic heart disease of native coronary artery without angina pectoris; F17.210 Nicotine dependence, cigarettes, uncomplicated; E66.9 Obesity, unspecified; Z68.32 Body mass index [BMI] 32.0-32.9, adult
CPT/HCPCS: 36415; 55866; 80048; 80053; 84132; 85007; 85025; 85610; 85730; 86850; 86900; 86901; 88305; 88309; 88342; 96374; 96375; 96376; A4217; A9270; G0378; J0690; J1170; J2250; J2270; J2405; J2704; J2710; J3480; J7120; Q9968; J7030

== ENCOUNTER 2017-09-18 23:21 | Emergency (ER) | payer MEDICARE ==
[2017-09-19 01:25] LABS: Calcium 9.5 mg/dL (8.4-10.2)
[2017-09-19 01:28] LABS: Basophils # (Auto) 0.1 K/mm3 (0.0-0.1); Basophils % (Auto) 1.4 % (0.0-1.8); Eosinophils # (Auto) 0.1 K/mm3 (0.0-0.4); Eosinophils % (Auto) 1.6 % (0.0-4.3); Hemoglobin 12.9 gm/dl (11.8-15.2); Lymphocytes # (Auto) 1.8 K/mm3 (1.2-5.4); Lymphocytes % (Auto) 26.3 % (13.4-35.0); Mean Corpuscular HGB Conc 33 % (32-34); Mean Corpuscular Hemoglobin 26 pg (28-32); Mean Corpuscular Volume 78 fl (84-94); Monocytes # (Auto) 0.5 K/mm3 (0.0-0.8); Monocytes % (Auto) 7.7 % (0.0-7.3); Platelet Count 357 K/mm3 (140-440); Red Blood Count 4.97 M/mm3 (3.65-5.03); Red Cell Distribution Width 14.6 % (13.2-15.2)
[2017-09-19 01:29] LABS: Bacteria,Urine 4+ /HPF (Negative)
[2017-09-19 01:32] LABS: Bilirubin,Urine Color Interference (Negative); Color,Urine Red (Yellow); RBC,Urine > 182.0 /HPF (0.0-6.0); WBC,Urine > 182.0 /HPF (0.0-6.0)
[2017-09-19 01:33] LABS: Blood,Urine Large (Negative); Protein,Urine Color Interference mg/dL (Negative)
[2017-09-19 01:34] LABS: Mucus,Urine 2+ /HPF
[2017-09-19 01:41] LABS: Urobilinogen,Urine < 2.0 mg/dL (<2.0)
[2017-09-19 01:43] LABS: Ictotest,Urine Negative (Negative)
[2017-09-19 02:15] VITALS: BP 142/74
[2017-09-19] MEDS ORDERED: NACL 0.9% 500 ML IR ONE (03:34)
--- NOTE | 2017-09-19 04:29 | Emergency Department Report ---
ED Male HPI - General Chief complaint: Urogenital-Male Stated complaint: GI BLEED Time Seen by Provider: 09/19/17 02:02 Source: patient Mode of arrival: Ambulatory Limitations: No Limitations - History of Present Illness Initial comments: Patient is a 72-year-old gentleman who is 2 weeks status post prostate surgery done by Dr. Katz. Patient states last day he's had blood in his urine. Patient states he does has some slight pressure in the suprapubic region but otherwise he states he is fine. Patient states the pain is approximately 3 out of 10 in severity. The patient denies any fevers chills nausea vomiting at this time. Patient also is complaining of some left eye discomfort he states something flew in his eye on his way into the hospital. - Related Data Home Medications Medication Instructions Recorded Confirmed Last Taken Amlodipine Besylate 10 mg PO DAILY 02/23/15 08/22/17 09/01/17 05:15 Ibuprofen [Motrin 600 MG tab] 600 mg PO TID PRN 04/06/15 09/01/17 08/22/17 Clopidogrel Bisulfate [Plavix] 75 mg PO DAILY 08/26/17 09/01/17 08/26/17 Losartan/Hydrochlorothiazide 1 each PO DAILY 08/26/17 08/26/17 09/01/17 05:15 [Losartan-Hctz 100-25 mg Tab] Pregabalin [Lyrica] 75 mg PO BID 08/26/17 08/26/17 09/01/17 05:15 Simvastatin [Zocor TAB] 20 mg PO QHS 08/26/17 09/01/17 08/31/17 Previous Rx's Medication Instructions Recorded Last Taken Type Ciprofloxacin HCl [Cipro] 500 mg PO BID #14 tablet 09/19/17 Unknown Rx Neomy/Polymyx B/Hc Opth Susp 1 drop OS Q6HR #1 bottle 09/19/17 Unknown Rx [Cortisporin (OPTH) Susp] Allergies Allergy/AdvReac Type Severity Reaction Status Date / Time meperidine [From Demerol] Allergy Itching Verified 08/22/17 11:31 ED Review of Systems ROS: Stated complaint: GI BLEED Other details as noted in HPI Comment: All other systems reviewed and negative ED Past Medical Hx - Past Medical History Previous Medical History?: Yes Hx Hypertension: Yes (X 8 YRS) Hx Heart Attack/AMI: No Hx Congestive Heart Failure: No Hx Diabetes: No Hx GERD: Yes Hx Arthritis: Yes Hx Kidney Stones: No Hx HIV: No - Surgical History Past Surgical History?: Yes Additional Surgical History: Herniorrhaphy, testicular torsion, prostate - Social History Smoking Status: Former Smoker Substance Use Type: None - Medications Home Medications: Home Medications Medication Instructions Recorded Confirmed Last Taken Type Amlodipine Besylate 10 mg PO DAILY 02/23/15 08/22/17 09/01/17 05:15 History Ibuprofen [Motrin 600 MG tab] 600 mg PO TID PRN 04/06/15 09/01/17 08/22/17 History Clopidogrel Bisulfate [Plavix] 75 mg PO DAILY 08/26/17 09/01/17 08/26/17 History Losartan/Hydrochlorothiazide 1 each PO DAILY 08/26/17 08/26/17 09/01/17 05:15 History [Losartan-Hctz 100-25 mg Tab] Pregabalin [Lyrica] 75 mg PO BID 08/26/17 08/26/17 09/01/17 05:15 History Simvastatin [Zocor TAB] 20 mg PO QHS 08/26/17 09/01/17 08/31/17 History Ciprofloxacin HCl [Cipro] 500 mg PO BID #14 tablet 09/19/17 Unknown Rx Neomy/Polymyx B/Hc Opth Susp 1 drop OS Q6HR #1 bottle 09/19/17 Unknown Rx [Cortisporin (OPTH) Susp] ED Physical Exam - General Limitations: No Limitations General appearance: alert, in no apparent distress - Head Head exam: Present: atraumatic, normocephalic - Eye Eye exam: Present: normal appearance, conjunctival injection (OS) - ENT ENT exam: Present: mucous membranes moist - Neck Neck exam: Present: normal inspection - Respiratory Respiratory exam: Present: normal lung sounds bilaterally. Absent: respiratory distress, wheezes, rales, rhonchi - Cardiovascular Cardiovascular Exam: Present: regular rate, normal rhythm. Absent: systolic murmur, diastolic murmur, rubs, gallop - GI/Abdominal GI/Abdominal exam: Present: soft, normal bowel sounds. Absent: distended, tenderness, guarding, rebound - Rectal Rectal exam: Present: deferred - Extremities Exam Extremities exam: Present: normal inspection - Back Exam Back exam: Present: normal inspection - Neurological Exam Neurological exam: Present: alert, oriented X3 - Psychiatric Psychiatric exam: Present: normal affect, normal mood - Skin Skin exam: Present: warm, dry, intact, normal color. Absent: rash ED Course Vital Signs 09/19/17 09/19/17 09/19/17 00:35 02:14 04:09 Temperature 98.2 F 97.6 F 97.8 F Pulse Rate 68 64 Respiratory 18 14 Rate Blood Pressure 129/66 Blood Pressure 142/74 [Left] O2 Sat by Pulse 100 99 Oximetry ED Medical Decision Making - Lab Data Result diagrams: 09/19/17 01:16 09/19/17 00:58 Lab Results 09/19/17 09/19/17 09/19/17 Range/Units 00:58 01:16 Unknown WBC 6.8 (4.5-11.0) K/mm3 RBC 4.97 (3.65-5.03) M/mm3 Hgb 12.9 (11.8-15.2) gm/dl Hct 39.0 (35.5-45.6) % MCV 78 L (84-94) fl MCH 26 L (28-32) pg MCHC 33 (32-34) % RDW 14.6 (13.2-15.2) % Plt Count 357 (140-440) K/mm3 Lymph % (Auto) 26.3 (13.4-35.0) % Stanley % (Auto) 7.7 H (0.0-7.3) % Eos % (Auto) 1.6 (0.0-4.3) % Baso % (Auto) 1.4 (0.0-1.8) % Lymph # 1.8 (1.2-5.4) K/mm3 Stanley # 0.5 (0.0-0.8) K/mm3 Eos # 0.1 (0.0-0.4) K/mm3 Baso # 0.1 (0.0-0.1) K/mm3 Seg Neutrophils % 63.0 (40.0-70.0) % Seg Neutrophils # 4.3 (1.8-7.7) K/mm3 Sodium 137 (137-145) mmol/L Potassium 4.0 (3.6-5.0) mmol/L Chloride 97.6 L (98-107) mmol/L Carbon Dioxide 22 (22-30) mmol/L Anion Gap 21 mmol/L BUN 21 H (9-20) mg/dL Creatinine 1.6 H (0.8-1.5) mg/dL Estimated GFR 52 ml/min BUN/Creatinine Ratio 13 % Glucose 94 (75-100) mg/dL Calcium 9.5 (8.4-10.2) mg/dL Urine Color Red (Yellow) Urine Turbidity Turbid (Clear) Urine pH 6.0 (5.0-7.0) Ur Specific Stephen 1.006 (1.003-1.030) Urine Protein Color interference (Negative) mg/dL Urine Glucose (UA) Color interference (Negative) mg/dL Urine Ketones Color interference (Negative) mg/dL Urine Blood Large A (Negative) Urine Nitrite Negative (Negative) Urine Bilirubin Color interference (Negative) Urine Ictotest Negative (Negative) Urine Urobilinogen < 2.0 (<2.0) mg/dL Ur Leukocyte Esterase Large (Negative) Urine WBC (Auto) > 182.0 H (0.0-6.0) /HPF Urine RBC (Auto) > 182.0 (0.0-6.0) /HPF U Epithel Cells (Auto) < 1.0 (0-13.0) /HPF Urine Bacteria (Auto) 4+ (Negative) /HPF Urine Mucus 2+ /HPF - Medical Decision Making Patient had a Mack catheter placed and his bladder was irrigated to clear. Patient does have a UTI with hematuria which started on Cipro. Patient has flushed and will be started on Cortisporin drops. Although Dr. Katz for for Mack removal. Critical care attestation.: If time is entered above; I have spent that time in minutes in the direct care of this critically ill patient, excluding procedure time. ED Disposition Clinical Impression: Acute cystitis Qualifiers: Hematuria presence: with hematuria Qualified Code(s): N30.01 - Acute cystitis with hematuria Corneal abrasion Qualifiers: Encounter type: initial encounter Laterality: left Qualified Code(s): S05.02XA - Injury of conjunctiva and corneal abrasion without foreign body, left eye, initial encounter Disposition: TO HOME OR SELFCARE Is pt being admited?: No Does the pt Need Aspirin: No Condition: Stable Instructions: Urinary Tract Infection in Men (ED), Mack Catheter Placement and Care (ED), Corneal Abrasion (ED) Prescriptions: Ciprofloxacin HCl [Cipro] 500 mg PO BID #14 tablet Neomy/Polymyx B/Hc Opth Susp [Cortisporin (OPTH) Susp] 1 drop OS Q6HR #1 bottle Referrals: JOSSELYN GARRIDO MD [Primary Care Provider] - 3-5 Days ELENA KATZ MD [Staff Physician] - 3-5 Days
== END 2017-09-19 04:38 | disposition home or self-care (01) ==
LOC: ED 23:21
DX: S05.02XA Injury of conjunctiva and corneal abrasion without foreign body, left eye, initial encounter (principal); N30.01 Acute cystitis with hematuria; I10 Essential (primary) hypertension; K21.9 Gastro-esophageal reflux disease without esophagitis; X58.XXXA Exposure to other specified factors, initial encounter; Y93.89 Activity, other specified; Y92.89 Other specified places as the place of occurrence of the external cause; Y99.8 Other external cause status
CPT/HCPCS: 36415; 51702; 80048; 81001; 85025

== ENCOUNTER 2020-09-21 10:28 | Inpatient (IN) | payer MEDICARE ==
[2020-09-21] MEDS ORDERED: IPRATROPIUM 0.02% NEBU 2.5 ML IH ONE ×3 (11:18→20:10)
[2020-09-21] MEDS ORDERED: ALBUTEROL 2.5 MG/3 ML NEBU IH ONE ×3 (11:18→20:10)
--- NOTE | 2020-09-21 11:19 | Event Note ---
ED Screening Note ED Screening Note: pt presents for SOB, CP, productive cough for a week non smoker states he has lower abd pain and lower back pain hx of prostate cancer and CVA allergies to meperdine This initial assessment/diagnostic orders/clinical plan/treatment(s) is/are subject to change based on patients health status, clinical progression and re- assessment by fellow clinical providers in the ED. Further treatment and workup at subsequent clinical providers discretion. Patient/guardian urged not to elope from the ED as their condition may be serious if not clinically assessed and managed. Initial orders include: labs, CXR, EKG
[2020-09-21 12:06] LABS: Basophils % (Auto) 0.4 % (0.0-1.8); Eosinophils # (Auto) 0.1 K/mm3 (0.0-0.4); Eosinophils % (Auto) 1.3 % (0.0-4.3); Hematocrit 44.5 % (35.5-45.6); Hemoglobin 14.8 gm/dl (11.8-15.2); Lymphocytes # (Auto) 1.5 K/mm3 (1.2-5.4); Lymphocytes % (Auto) 22.6 % (13.4-35.0); Mean Corpuscular HGB Conc 33 % (32-34); Mean Corpuscular Volume 81 fl (84-94); Monocytes # (Auto) 0.4 K/mm3 (0.0-0.8); Monocytes % (Auto) 6.7 % (0.0-7.3); Platelet Count 377 K/mm3 (140-440); Red Blood Count 5.47 M/mm3 (3.65-5.03); Red Cell Distribution Width 14.6 % (13.2-15.2)
--- NOTE | 2020-09-21 12:24 | XRay Report ---
CHEST 2 VIEWS INDICATION / CLINICAL INFORMATION: Shortness of breath and chest pain. COMPARISON: None currently available FINDINGS: SUPPORT DEVICES: None. HEART / MEDIASTINUM: The heart size and pulmonary vasculature are normal. There is mild aortic tortuo sity without aneurysm. LUNGS / PLEURA: No significant pulmonary or pleural abnormality. No pneumothorax. ADDITIONAL FINDINGS: No significant additional findings. IMPRESSION: No acute findings. Signer Name: Mendoza Romero MD Signed: 09/21/2020 12:18 PM Workstation Name: [id number]
[2020-09-21 12:36] LABS: Alanine Aminotransferase 17 units/L (7-56); Albumin 4.2 g/dL (3.9-5); BUN/Creatinine Ratio 11; Blood Urea Nitrogen 25 mg/dL (9-20); Calcium 9.6 mg/dL (8.4-10.2); Hemolysis Index 1
[2020-09-21 16:01] LABS: Bilirubin,Urine NEG (Negative); Blood,Urine NEG (Negative); Color,Urine Yellow (Yellow); Mucus,Urine FEW /HPF; Protein,Urine <15 mg/dL mg/dL (Negative); Urobilinogen,Urine < 2.0 mg/dL (<2.0)
[2020-09-21] MEDS ORDERED: ALPRAZolam 0.5 MG TAB PO ONE (18:02)
--- NOTE | 2020-09-21 18:06 | Emergency Department Report ---
HPI - General Chief Complaint: Dyspnea/Respdistress Time Seen by Provider: 09/21/20 11:16 - HPI HPI: This is a 75-year-old -[place]ag[place] male presents to the emergency department with the complaint of some abdominal pain, chest pain, back pain and shortness of breath that he says was "an anxiety attack." Patient says that he was never previously diagnosed with anxiety but has been having issues with anxiety over the past few months. There is no particular thing that he feels that he is anxious about. He has a past medical history of remote prostate cancer, GERD, hypertension. His primary care physician is Dr. Quintero but has not seen them rega rding his current symptoms. He denies any fever, nausea, vomiting, diaphoresis, constipation, diarrhea or dysuria. He has not taken anything for symptoms prior to presentation. He denies any illicit drug use, cigarette use, or heavy alcohol use/abuse. ED Past Medical Hx - Past Medical History Previous Medical History?: Yes Hx Hypertension: Yes (X 8 YRS) Hx Heart Attack/AMI: No Hx Congestive Heart Failure: No Hx Diabetes: No Hx GERD: Yes Hx Arthritis: Yes Hx Kidney Stones: No Hx HIV: No - Surgical History Past Surgical History?: Yes Additional Surgical History: Herniorrhaphy, testicular torsion, prostate - Social History Smoking Status: Former Smoker Substance Use Type: None - Medications Home Medications: Home Medications Medication Instructions Recorded Confirmed Last Taken Type Amlodipine Besylate 10 mg PO DAILY 02/23/15 08/22/17 09/01/17 05:15 History Ibuprofen [Motrin 600 MG tab] 600 mg PO TID PRN 04/06/15 09/01/17 08/22/17 History Clopidogrel Bisulfate [Plavix] 75 mg PO DAILY 08/26/17 09/01/17 08/26/17 History Losartan/Hydrochlorothiazide 1 each PO DAILY 08/26/17 08/26/17 09/01/17 05:15 History [Losartan-Hctz 100-25 mg Tab] Pregabalin [Lyrica] 75 mg PO BID 08/26/17 08/26/17 09/01/17 05:15 History Simvastatin (Nf) [Zocor TAB] 20 mg PO QHS 08/26/17 09/01/17 08/31/17 History Ciprofloxacin HCl [Cipro] 500 mg PO BID #14 tablet 09/19/17 Unknown Rx Neomy/Polymyx B/Hc Opth Susp 1 drop OS Q6HR #1 bottle 09/19/17 Unknown Rx [Cortisporin (OPTH) Susp] ED Review of Systems ROS: Stated complaint: WILTON/ANXIETY Other details as noted in HPI Comment: All other systems reviewed and negative Constitutional: denies: chills, fever Eyes: denies: eye pain, vision change ENT: denies: ear pain, throat pain Respiratory: shortness of breath. denies: cough Cardiovascular: denies: chest pain, edema Gastrointestinal: abdominal pain. denies: nausea, vomiting, diarrhea Genitourinary: denies: dysuria, discharge Musculoskeletal: back pain. denies: arthralgia Skin: denies: rash, lesions Neurological: denies: headache, weakness Psychiatric: anxiety Physical Exam - Physical Exam Vital Signs: Vital Signs 09/21/20 15:41 Temperature 97.9 F Pulse Rate 69 Respiratory 24 Rate Blood Pressure 123/86 [Right] O2 Sat by Pulse 100 Oximetry Physical Exam: GENERAL: The patient is well-developed well-nourished. HENT: Normocephalic. Atraumatic. Patient has moist mucous membranes. EYES: Extraocular motions are intact. NECK: Supple. Trachea is midline. CHEST/LUNGS: There is some wheezing heard throughout the chest. No tachypnea or accessory muscle use. HEART/CARDIOVASCULAR: Regular. There is no tachycardia. There is no murmur. ABDOMEN: Abdomen is soft. Generalized abdominal tenderness to palpation with lower quadrants greater than upper. No guarding. Patient has normal bowel sounds. There is no abdominal distention. SKIN: Skin is warm and dry. NEURO: The patient is awake, alert, and oriented. The patient is cooperative. Normal speech. MUSCULOSKELETAL: There is no tenderness or deformity. There is no limitation range of motion. ED Course Vital Signs 09/21/20 15:41 Temperature 97.9 F Pulse Rate 69 Respiratory 24 Rate Blood Pressure 123/86 [Right] O2 Sat by Pulse 100 Oximetry ED Medical Decision Making - Lab Data Result diagrams: 09/21/20 11:17 09/21/20 11:17 Lab Results 09/21/20 09/21/20 09/21/20 Range/Units 11:17 11:17 15:52 WBC 6.5 (4.5-11.0) K/mm3 RBC 5.47 H (3.65-5.03) M/mm3 Hgb 14.8 (11.8-15.2) gm/dl Hct 44.5 (35.5-45.6) % MCV 81 L (84-94) fl MCH 27 L (28-32) pg MCHC 33 (32-34) % RDW 14.6 (13.2-15.2) % Plt Count 377 (140-440) K/mm3 Lymph % (Auto) 22.6 (13.4-35.0) % [place] % (Auto) 6.7 (0.0-7.3) % Eos % (Auto) 1.3 (0.0-4.3) % Baso % (Auto) 0.4 (0.0-1.8) % Lymph # (Auto) 1.5 (1.2-5.4) K/mm3 [place] # (Auto) 0.4 (0.0-0.8) K/mm3 Eos # (Auto) 0.1 (0.0-0.4) K/mm3 Baso # (Auto) 0.0 (0.0-0.1) K/mm3 Seg Neutrophils % 69.0 (40.0-70.0) % Seg Neutrophils # 4.5 (1.8-7.7) K/mm3 D-Dimer (0-234) ng/mlDDU Sodium 137 (137-145) mmol/L Potassium 4.4 (3.6-5.0) mmol/L Chloride 99.8 (98-107) mmol/L Carbon Dioxide 22 (22-30) mmol/L Anion Gap 20 mmol/L BUN 25 H (9-20) mg/dL Creatinine 2.3 H (0.8-1.3) mg/dL Estimated GFR 34 ml/min BUN/Creatinine Ratio 11 % Glucose 103 H (75-100) mg/dL Calcium 9.6 (8.4-10.2) mg/dL Total Bilirubin 0.80 (0.1-1.2) mg/dL AST 16 (5-40) units/L ALT 17 (7-56) units/L Alkaline Phosphatase 68 (35-129) units/L Troponin T < 0.010 (0.00-0.029) ng/mL NT-Pro-B Natriuret Pep 31.43 (0-900) pg/mL Total Protein 8.0 (6.3-8.2) g/dL Albumin 4.2 (3.9-5) g/dL Albumin/Globulin Ratio 1.1 % Lipase (13-60) units/L Urine Color Yellow (Yellow) Urine Turbidity Clear (Clear) Urine pH 5.0 (5.0-7.0) Ur Specific [place] 1.017 (1.003-1.030) Urine Protein <15 mg/dl (Negative) mg/dL Urine Glucose (UA) Neg (Negative) mg/dL Urine Ketones Neg (Negative) mg/dL Urine Blood Neg (Negative) Urine Nitrite Neg (Negative) Urine Bilirubin Neg (Negative) Urine Urobilinogen < 2.0 (<2.0) mg/dL Ur Leukocyte Esterase Neg (Negative) Urine WBC (Auto) 1.0 (0.0-6.0) /HPF Urine RBC (Auto) 1.0 (0.0-6.0) /HPF U Epithel Cells (Auto) < 1.0 (0-13.0) /HPF Urine Mucus Few /HPF 09/21/20 09/21/20 09/21/20 Range/Units 18:07 18:07 18:10 WBC (4.5-11.0) K/mm3 RBC (3.65-5.03) M/mm3 Hgb (11.8-15.2) gm/dl Hct (35.5-45.6) % MCV (84-94) fl MCH (28-32) pg MCHC (32-34) % RDW (13.2-15.2) % Plt Count (140-440) K/mm3 Lymph % (Auto) (13.4-35.0) % [place] % (Auto) (0.0-7.3) % Eos % (Auto) (0.0-4.3) % Baso % (Auto) (0.0-1.8) % Lymph # (Auto) (1.2-5.4) K/mm3 [place] # (Auto) (0.0-0.8) K/mm3 Eos # (Auto) (0.0-0.4) K/mm3 Baso # (Auto) (0.0-0.1) K/mm3 Seg Neutrophils % (40.0-70.0) % Seg Neutrophils # (1.8-7.7) K/mm3 D-Dimer 371.86 H (0-234) ng/mlDDU Sodium (137-145) mmol/L Potassium (3.6-5.0) mmol/L Chloride (98-107) mmol/L Carbon Dioxide (22-30) mmol/L Anion Gap mmol/L BUN (9-20) mg/dL Creatinine (0.8-1.3) mg/dL Estimated GFR ml/min BUN/Creatinine Ratio % Glucose (75-100) mg/dL Calcium (8.4-10.2) mg/dL Total Bilirubin (0.1-1.2) mg/dL AST (5-40) units/L ALT (7-56) units/L Alkaline Phosphatase (35-129) units/L Troponin T < 0.010 (0.00-0.029) ng/mL NT-Pro-B Natriuret Pep (0-900) pg/mL Total Protein (6.3-8.2) g/dL Albumin (3.9-5) g/dL Albumin/Globulin Ratio % Lipase 48 (13-60) units/L Urine Color (Yellow) Urine Turbidity (Clear) Urine pH (5.0-7.0) Ur Specific [place] (1.003-1.030) Urine Protein (Negative) mg/dL Urine Glucose (UA) (Negative) mg/dL Urine Ketones (Negative) mg/dL Urine Blood (Negative) Urine Nitrite (Negative) Urine Bilirubin (Negative) Urine Urobilinogen (<2.0) mg/dL Ur Leukocyte Esterase (Negative) Urine WBC (Auto) (0.0-6.0) /HPF Urine RBC (Auto) (0.0-6.0) /HPF U Epithel Cells (Auto) (0-13.0) /HPF Urine Mucus /HPF - EKG Data -: EKG Interpreted by Me EKG shows normal: sinus rhythm, axis, intervals, QRS complexes, ST-T waves Rate: normal - EKG Data When compared to previous EKG there are: no significant change Interpretation: unchanged when compared t (05/19/19) - Radiology Data Radiology results: report reviewed, image reviewed interpreted by me: Chest x-ray does not show any acute process. There are no pleural effusions, obvious pneumonia and there is no pneumothorax. No significant cardiomegaly. CT CHEST, ABDOMEN, AND PELVIS WITHOUT CONTRAST INDICATION / CLINICAL INFORMATION: ABD pain. TECHNIQUE: Axial CT images were obtained through the chest, abdomen, and pelvis without contrast. All CT scans at this location are performed using CT dose reduction for ALARA by means of automated exposure control. COMPARISON: 08/18/2013. FINDINGS: HEART: Moderate coronary artery calcifications. THORACIC AORTA: Mild atherosclerotic calcification without acute abnormality. MEDIASTINUM and DAISY: No significant abnormality. LUNGS: Linear atelectasis bilateral lung bases. PLEURA: No significant pleural effusion. No pneumothorax. ADDITIONAL CHEST FINDINGS: None. LIVER: No significant abnormality. GALLBLADDER: No significant abnormality. BILE DUCTS: No significant abnormality. PANCREAS: No significant abnormality. SPLEEN: No significant abnormality. ADRENALS: No significant abnormality. RIGHT KIDNEY and URETER: No significant abnormality. LEFT KIDNEY and URETER: No significant abnormality. STOMACH and SMALL BOWEL: No significant abnormality. No mechanical bowel obstruction. COLON: Colonic diverticulosis is noted most severe at the sigmoid colon with a focal area of concentric mural thickening best seen series 2 image [id number]. There is no significant pericolonic fat stranding. APPENDIX: No signi ficant abnormality. PERITONEUM: No free fluid. No free air. No fluid collection. LYMPH NODES: No significant adenopathy. AORTA and ARTERIES: Mild atherosclerotic calcification without acute abnormality. IVC and VEINS: No significant abnormality. URINARY BLADDER: No significant abnormality. REPRODUCT MAC ORGANS: No significant abnormality. ADDITIONAL FINDINGS: None. SKELETAL SYSTEM: Moderate multilevel degenerative changes are noted of the spine. Spanning osteophytes are noted consistent with DISH. No aggressive osseous lesions. IMPRESSION: 1. Findings at the level the sigmoid colon including di verticulosis with concentric mural thickening concerning for developing diverticulitis. Follow-up after resolution of acute process is recommended to exclude underlying pathology of the colonic wall. NUCLEAR MEDICINE PERFUSION ONLY LUNG SCAN History: SOB, elevated dimer Chest radiograph dated 09/21/2020. Procedure: The patient was administered 5.3 mCi of technetium 99m labeled MAA intravenously. Findings: No focal segmental defects are seen on perfusion imaging. Impression: Normal perfusion scan. - Medical Decision Making This patient presents to the emergency department with a complaint of shortness of breath, chest pain, abdominal pain. Patient has some wheezing throughout the chest but otherwise does not appear in any respiratory or acute distress. He is quite tender to palpation of the abdomen. The patient's labs shows renal insufficiency which may be acute kidney injury with a GFR of about 35. Patient also has a slightly elevated D-dimer level. Because of the renal insufficiency, the patient had a ventilation perfusion scan that resulted as normal or negative for any pulmonary embolism. CT of the chest without contrast did not show any acute process. CT of the abdomen and pelvis without contrast shows concern for diverticulosis with possible development of diverticulitis in the sigmoid colon. Patient has been given breathing treatments, IV analgesia, and a dose of IV antibiotics. He has a moderate heart score. For all these reasons the patient will be admitted to the hospital for further evaluation and treatment and was accepted for admission by the hospitalist, Dr. Martínez. Critical Care Time: No Critical care attestation.: If time is entered above; I have spent that time in minutes in the direct care of this critically ill patient, excluding procedure time. ED Disposition Clinical Impression: Acute chest pain, Diverticulosis, Colitis Dyspnea Qualifiers: Dyspnea type: shortness of breath Qualified Code(s): R06.02 - Shortness of breath; R06.00 - Dyspnea, unspecified; R06.01 - Orthopnea Abdominal pain Qualifiers: Abdominal location: unspecified location Qualified Code(s): R10.9 - Unspecified abdominal pain Disposition: OP ADMIT IP TO THIS HOSP Is pt being admited?: Yes Condition: Fair Time of Disposition: 23:45 HEART Score - HEART Score History: Slightly suspicious EKG: Normal Age: > 65 Risk factors: 1-2 risk factors Troponin: Troponin T < 0.010 ng/mL (0.00-0.029) 09/21/20 18:07 Troponin: < normal limit HEART Score: 3 - Critical Actions Critical Actions: 0-3 pts:0.9-1.7%risk of adverse cardiac event.Candidate for discharge
--- NOTE | 2020-09-21 22:18 | Cat Scan Report ---
CT CHEST, ABDOMEN, AND PELVIS WITHOUT CONTRAST INDICATION / CLINICAL INFORMATION: ABD pain. TECHNIQUE: Axial CT images were obtained through the chest, abdomen, and pelvis without contrast. All CT scans a t this location are performed using CT dose reduction for ALARA by means of automated exposure contro l. COMPARISON: 08/18/2013. FINDINGS: HEART: Moderate coronary artery calcifications. THORACIC AORTA: Mild atherosclerotic calcification without acute abnormality. MEDIASTINUM and DAISY: No significant abnormality. LUNGS: Linear atelectasis bilateral lung bases. PLEURA: No significant pleural effusion. No pneumothorax. ADDITIONAL CHEST FINDINGS: None. LIVER: No significant abnormality. GALLBLADDER: No significant abnormality. BILE DUCTS: No significant abnormality. PANCREAS: No significant abnormality. SPLEEN: No significant abnormality. ADRENALS: No significant abnormality. RIGHT KIDNEY and URETER: No significant abnormality. LEFT KIDNEY and URETER: No significant abnormality. STOMACH and SMALL BOWEL: No significant abnormality. No mechanical bowel obstruction. COLON: Colonic diverticulosis is noted most severe at the sigmoid colon with a focal area of concentr ic mural thickening best seen series 2 image [id number]. There is no significant pericolonic fat strandi ng. APPENDIX: No significant abnormality. PERITONEUM: No free fluid. No free air. No fluid collection. LYMPH NODES: No significant adenopathy. AORTA and ARTERIES: Mild atherosclerotic calcification without acute abnormality. IVC and VEINS: No significant abnormality. URINARY BLADDER: No significant abnormality. REPRODUCTIVE ORGANS: No significant abnormality. ADDITIONAL FINDINGS: None. SKELETAL SYSTEM: Moderate multilevel degenerative changes are noted of the spine. Spanning osteophyte s are noted consistent with DISH. No aggressive osseous lesions. IMPRESSION: 1. Findings at the level the sigmoid colon including diverticulosis with concentric mural thickening concerning for developing diverticulitis. Follow-up after resolution of acute process is recommended to exclude underlying pathology of the colonic wall. Signer Name: Calixto Monteiro MD Signed: 09/21/2020 10:14 PM Workstation Name: [id number]
--- NOTE | 2020-09-21 23:07 | Nuclear Medicine Report ---
NUCLEAR MEDICINE PERFUSION ONLY LUNG SCAN History: SOB, elevated dimer Chest radiograph dated 09/21/2020. Procedure: The patient was administered 5.3 mCi of technetium 99m labeled MAA intravenously. Findings: No focal segmental defects are seen on perfusion imaging. Impression: Normal perfusion scan. Signer Name: Calixto Monteiro MD Signed: 09/21/2020 11:02 PM Workstation Name: [id number]
[2020-09-22] MEDS ORDERED: ACETAMINOPHEN 650 MG RECT SUPP PR PRN (00:43)
[2020-09-22] MEDS ORDERED: HYDROmorphone 1 MG/1 ML INJ IV PRN (00:43)
[2020-09-22] MEDS ORDERED: ONDANSETRON 4 MG/2 ML INJ IV PRN (00:43)
[2020-09-22] MEDS ORDERED: ALBUTEROL 2.5 MG/3 ML NEBU IH PRN (00:43)
[2020-09-22] MEDS ORDERED: MORPHINE 2 MG/1 ML INJ IV PRN (00:43)
[2020-09-22] MEDS ORDERED: NITROGLYCERIN 0.4 MG TAB SUBL SL PRN (00:48)
[2020-09-22] MEDS ORDERED: LORazepam 2 MG/ML VIAL IV PRN (00:51)
[2020-09-22] MEDS ORDERED: PIPERACILLIN/TAZOBACTAM 3.375 3.375 GM/50 ML BAG IV ONE (01:00)
[2020-09-22] MEDS ORDERED: PIPERACIL/TAZOBACTA 4.5/NS 100 4.5 GM/100 ML VIAL IV SCH (01:00)
[2020-09-22] MEDS ORDERED: PANTOPRAZOLE 40 MG INJ IV ONE (01:25)
--- NOTE | 2020-09-22 01:30 | History and Physical Report ---
History of Present Illness Date of examination: 09/21/20 Date of admission: 09/21/20 23:45 Chief complaint: Abdominal pain, chest pain, shortness of breath History of present illness: 75-year-old -[place]vian male with history of WENDY, CAD, chronic lumbar pain, hypertension, GERD, arthritis, prostate cancer, questionable history of anxiety who presents [facility] ED with complaints of shortness of breath, chest pain, abdominal pain, and " anxiety attack". Patient complains of 7/10 sharp abdominal pain which started in the right upper quadrant, now in the epigastric region with radiation to lower abdomen. His abdominal pain started a few weeks ago in the right upper quadrant, it was intermittent, and he thought that he had pulled an abdominal muscle. The pain has since progressed to the epigastric region with radiation to the lower abdomen and is now constant. Pain is relieved with pain meds. Endorses history of GERD not currently on PPI. Additionally patient complains of shortness of breath and chest pain. On examination when patient was asked to point to the area of chest where he felt the pain, patient made note to epigastric area. However he mentioned that approximately 1 to 2 days ago he had substernal nonradiating 8/10 chest pain. Patient shortness of breath is exacerbated with abdominal and chest pain, and is relieved with rest. Patient states he had what he believed to be an " anxiety attack" earlier today. He describes feeling very anxious, in a state of panic, nervous, and unable to sit still. He denies formal diagnosis of anxiety. Denies PND, orthopnea, lower extremity edema, palpitations, recent unintended weight gain greater than 2 pounds in 1 day, cough, sputum production, fever, chills, nausea, vomiting, diarrhea, melena, hematuria, hematochezia, dysuria, constipation, recent sick contacts. Patient's PCP is Dr. Quintero. Past History Past Medical History: CAD, GERD, hypertension, other (Chews tobacco,, chronic lumbar pain, prostate CA,?? Anxiety, WENDY, arthritis) Past Surgical History: Other (Prostatectomy, Herniorrhaphy, testicular torsion) Social history: , Lives alone, full code, other (Endorses chewing tobacco). denies: smoking, alcohol abuse, prescription drug abuse, IV drug use Family history: hypertension Medications and Allergies Allergies Allergy/AdvReac Type Severity Reaction Status Date / Time meperidine [From Demerol] Allergy Itching Verified 08/22/17 11:31 Home Medications Medication Instructions Recorded Confirmed Last Taken Type Amlodipine Besylate 10 mg PO DAILY 02/23/15 08/22/17 09/01/17 05:15 History Ibuprofen [Motrin 600 MG tab] 600 mg PO TID PRN 04/06/15 09/01/17 08/22/17 History Clopidogrel Bisulfate [Plavix] 75 mg PO DAILY 08/26/17 09/01/17 08/26/17 History Losartan/Hydrochlorothiazide 1 each PO DAILY 08/26/17 08/26/17 09/01/17 05:15 History [Losartan-Hctz 100-25 mg Tab] Pregabalin [Lyrica] 75 mg PO BID 08/26/17 08/26/17 09/01/17 05:15 History Simvastatin (Nf) [Zocor TAB] 20 mg PO QHS 08/26/17 09/01/17 08/31/17 History Ciprofloxacin HCl [Cipro] 500 mg PO BID #14 tablet 09/19/17 Unknown Rx Neomy/Polymyx B/Hc Opth Susp 1 drop OS Q6HR #1 bottle 09/19/17 Unknown Rx [Cortisporin (OPTH) Susp] Active Meds: Active Medications Acetaminophen (Acetaminophen 650 Mg Rect Supp) 650 mg OR Q4H PRN PRN Reason: Pain MILD(1-3)/Fever >100.5/ROY Albuterol (Albuterol 2.5 Mg/3 Ml Nebu) 2.5 mg IH Q4HRT PRN PRN Reason: Shortness Of Breath Hydromorphone HCl (Hydromorphone 1 Mg/1 Ml Inj) 0.5 mg IV Q3H PRN PRN Reason: Pain , Severe (7-10) Last Admin: 09/22/20 01:21 Dose: 0.5 mg Documented by: Piperacillin Sod/Tazobactam Sod (Zosyn/Ns 3.375gm/50ml) 3.375 gm in 50 mls @ 100 mls/hr IV ONCE ONE; Protocol Stop: 09/22/20 01:29 Last Admin: 09/22/20 00:45 Dose: 100 mls/hr Documented by: Dextrose/Sodium Chloride (D5/0.45ns) 1,000 mls @ 75 mls/hr IV DIRECT ADAMA Piperacillin Sod/Tazobactam Sod (Zosyn/Ns 2.25 Gm/50ml) 2.25 gm in 50 mls @ 100 mls/hr IV Q6H ADAMA Lorazepam (Lorazepam 2 Mg/Ml Vial) 1 mg IV Q4H PRN PRN Reason: Anxiety Morphine Sulfate (Morphine 2 Mg/1 Ml Inj) 2 mg IV Q4H PRN PRN Reason: Pain, Moderate (4-6) Nitroglycerin (Nitroglycerin 0.4 Mg Tab Subl) 0.4 mg SL Q5M PRN PRN Reason: Chest Pain Ondansetron HCl (Ondansetron 4 Mg/2 Ml Inj) 4 mg IV Q6H PRN PRN Reason: Nausea And Vomiting Pantoprazole Sodium (Pantoprazole 40 Mg Inj) 40 mg IV BID ADAMA Sodium Chloride (Sodium Chloride 0.9% 10 Ml Flush Syringe) 10 ml IV BID ADAMA Sodium Chloride (Sodium Chloride 0.9% 10 Ml Flush Syringe) 10 ml IV PRN PRN PRN Reason: LINE FLUSH Review of Systems All systems: negative (As noted in HPI) Exam - Physical Exam Narrative exam: Physical exam General appearance: Present: No acute distress, alert and oriented 3, well- developed, well-nourished, older adult, male - EENT Eyes: Present: PERRL, EOM intact ENT: hearing intact, no dentition - Neck Neck: Present: supple, normal ROM - Respiratory Respiratory effort: Non-labored Respiratory: Clear throughout - Cardiovascular Heart rate: 91 (bpm) Rhythm: Sinus Heart Sounds: Present: S1 & S2. Absent: rub, click - Extremities Extremities: no ischemia, pulses intact, - Peripheral Assessment Peripheral Pulses: within normal limits - Abdominal General gastrointestinal: Mild tenderness to epigastric region, soft, normal bowel sounds - Integumentary Integumentary: Present: warm, dry - Musculoskeletal Musculoskeletal: Able to move all extremities -Neurological Neurological: CN II-XII intact - Psychiatric Psychiatric: cooperative - Constitutional Vitals: Temp Pulse Resp BP Pulse Ox 97.9 F 78 19 103/48 99 09/21/20 15:41 09/21/20 23:16 09/21/20 23:16 09/21/20 23:16 09/21/20 23:16 HEART Score - HEART Score EKG: Normal Age: > 65 Risk factors: 1-2 risk factors Troponin: WBC 6.5 K/mm3 (4.5-11.0) 09/21/20 11:17 RBC 5.47 M/mm3 (3.65-5.03) H 09/21/20 11:17 Hgb 14.8 gm/dl (11.8-15.2) 09/21/20 11:17 Hct 44.5 % (35.5-45.6) 09/21/20 11:17 MCV 81 fl (84-94) L 09/21/20 11:17 MCH 27 pg (28-32) L 09/21/20 11:17 MCHC 33 % (32-34) 09/21/20 11:17 RDW 14.6 % (13.2-15.2) 09/21/20 11:17 Plt Count 377 K/mm3 (140-440) 09/21/20 11:17 Lymph % (Auto) 22.6 % (13.4-35.0) 09/21/20 11:17 [place] % (Auto) 6.7 % (0.0-7.3) 09/21/20 11:17 Eos % (Auto) 1.3 % (0.0-4.3) 09/21/20 11:17 Baso % (Auto) 0.4 % (0.0-1.8) 09/21/20 11:17 Lymph # (Auto) 1.5 K/mm3 (1.2-5.4) 09/21/20 11:17 [place] # (Auto) 0.4 K/mm3 (0.0-0.8) 09/21/20 11:17 Eos # (Auto) 0.1 K/mm3 (0.0-0.4) 09/21/20 11:17 Baso # (Auto) 0.0 K/mm3 (0.0-0.1) 09/21/20 11:17 Seg Neutrophils % 69.0 % (40.0-70.0) 09/21/20 11:17 Seg Neutrophils # 4.5 K/mm3 (1.8-7.7) 09/21/20 11:17 D-Dimer 371.86 ng/mlDDU (0-234) H 09/21/20 18:07 Sodium 137 mmol/L (137-145) 09/21/20 11:17 Potassium 4.4 mmol/L (3.6-5.0) 09/21/20 11:17 Chloride 99.8 mmol/L (98-107) 09/21/20 11:17 Carbon Dioxide 22 mmol/L (22-30) 09/21/20 11:17 Anion Gap 20 mmol/L 09/21/20 11:17 BUN 25 mg/dL (9-20) H 09/21/20 11:17 Creatinine 2.3 mg/dL (0.8-1.3) H 09/21/20 11:17 Estimated GFR 34 ml/min 09/21/20 11:17 BUN/Creatinine Ratio 11 % 09/21/20 11:17 Glucose 103 mg/dL (75-100) H 09/21/20 11:17 Calcium 9.6 mg/dL (8.4-10.2) 09/21/20 11:17 Total Bilirubin 0.80 mg/dL (0.1-1.2) 09/21/20 11:17 AST 16 units/L (5-40) 09/21/20 11:17 ALT 17 units/L (7-56) 09/21/20 11:17 Alkaline Phosphatase 68 units/L (35-129) 09/21/20 11:17 Troponin T < 0.010 ng/mL (0.00-0.029) 09/21/20 18:07 NT-Pro-B Natriuret Pep 31.43 pg/mL (0-900) 09/21/20 11:17 Total Protein 8.0 g/dL (6.3-8.2) 09/21/20 11:17 Albumin 4.2 g/dL (3.9-5) 09/21/20 11:17 Albumin/Globulin Ratio 1.1 % 09/21/20 11:17 Lipase 48 units/L (13-60) 09/21/20 18:10 Urine Color Yellow (Yellow) 09/21/20 15:52 Urine Turbidity Clear (Clear) 09/21/20 15:52 Urine pH 5.0 (5.0-7.0) 09/21/20 15:52 Ur Specific [place] 1.017 (1.003-1.030) 09/21/20 15:52 Urine Protein <15 mg/dl mg/dL (Negative) 09/21/20 15:52 Urine Glucose (UA) Neg mg/dL (Negative) 09/21/20 15:52 Urine Ketones Neg mg/dL (Negative) 09/21/20 15:52 Urine Blood Neg (Negative) 09/21/20 15:52 Urine Nitrite Neg (Negative) 09/21/20 15:52 Urine Bilirubin Neg (Negative) 09/21/20 15:52 Urine Urobilinogen < 2.0 mg/dL (<2.0) 09/21/20 15:52 Ur Leukocyte Esterase Neg (Negative) 09/21/20 15:52 Urine WBC (Auto) 1.0 /HPF (0.0-6.0) 09/21/20 15:52 Urine RBC (Auto) 1.0 /HPF (0.0-6.0) 09/21/20 15:52 U Epithel Cells (Auto) < 1.0 /HPF (0-13.0) 09/21/20 15:52 Urine Mucus Few /HPF 09/21/20 15:52 Troponin: < normal limit - Critical Actions Critical Actions: 0-3 pts:0.9-1.7%risk of adverse cardiac event.Candidate for discharge Results - Labs CBC & Chem 7: 09/21/20 11:17 09/21/20 11:17 Labs: Laboratory Last Values WBC 6.5 K/mm3 (4.5-11.0) 09/21/20 11:17 RBC 5.47 M/mm3 (3.65-5.03) H 09/21/20 11:17 Hgb 14.8 gm/dl (11.8-15.2) 09/21/20 11:17 Hct 44.5 % (35.5-45.6) 09/21/20 11:17 MCV 81 fl (84-94) L 09/21/20 11:17 MCH 27 pg (28-32) L 09/21/20 11:17 MCHC 33 % (32-34) 09/21/20 11:17 RDW 14.6 % (13.2-15.2) 09/21/20 11:17 Plt Count 377 K/mm3 (140-440) 09/21/20 11:17 Lymph % (Auto) 22.6 % (13.4-35.0) 09/21/20 11:17 [place] % (Auto) 6.7 % (0.0-7.3) 09/21/20 11:17 Eos % (Auto) 1.3 % (0.0-4.3) 09/21/20 11:17 Baso % (Auto) 0.4 % (0.0-1.8) 09/21/20 11:17 Lymph # (Auto) 1.5 K/mm3 (1.2-5.4) 09/21/20 11:17 [place] # (Auto) 0.4 K/mm3 (0.0-0.8) 09/21/20 11:17 Eos # (Auto) 0.1 K/mm3 (0.0-0.4) 09/21/20 11:17 Baso # (Auto) 0.0 K/mm3 (0.0-0.1) 09/21/20 11:17 Seg Neutrophils % 69.0 % (40.0-70.0) 09/21/20 11:17 Seg Neutrophils # 4.5 K/mm3 (1.8-7.7) 09/21/20 11:17 D-Dimer 371.86 ng/mlDDU (0-234) H 09/21/20 18:07 Sodium 137 mmol/L (137-145) 09/21/20 11:17 Potassium 4.4 mmol/L (3.6-5.0) 09/21/20 11:17 Chloride 99.8 mmol/L (98-107) 09/21/20 11:17 Carbon Dioxide 22 mmol/L (22-30) 09/21/20 11:17 Anion Gap 20 mmol/L 09/21/20 11:17 BUN 25 mg/dL (9-20) H 09/21/20 11:17 Creatinine 2.3 mg/dL (0.8-1.3) H 09/21/20 11:17 Estimated GFR 34 ml/min 09/21/20 11:17 BUN/Creatinine Ratio 11 % 09/21/20 11:17 Glucose 103 mg/dL (75-100) H 09/21/20 11:17 Calcium 9.6 mg/dL (8.4-10.2) 09/21/20 11:17 Total Bilirubin 0.80 mg/dL (0.1-1.2) 09/21/20 11:17 AST 16 units/L (5-40) 09/21/20 11:17 ALT 17 units/L (7-56) 09/21/20 11:17 Alkaline Phosphatase 68 units/L (35-129) 09/21/20 11:17 Troponin T < 0.010 ng/mL (0.00-0.029) 09/21/20 18:07 NT-Pro-B Natriuret Pep 31.43 pg/mL (0-900) 09/21/20 11:17 Total Protein 8.0 g/dL (6.3-8.2) 09/21/20 11:17 Albumin 4.2 g/dL (3.9-5) 09/21/20 11:17 Albumin/Globulin Ratio 1.1 % 09/21/20 11:17 Lipase 48 units/L (13-60) 09/21/20 18:10 Urine Color Yellow (Yellow) 09/21/20 15:52 Urine Turbidity Clear (Clear) 09/21/20 15:52 Urine pH 5.0 (5.0-7.0) 09/21/20 15:52 Ur Specific [place] 1.017 (1.003-1.030) 09/21/20 15:52 Urine Protein <15 mg/dl mg/dL (Negative) 09/21/20 15:52 Urine Glucose (UA) Neg mg/dL (Negative) 09/21/20 15:52 Urine Ketones Neg mg/dL (Negative) 09/21/20 15:52 Urine Blood Neg (Negative) 09/21/20 15:52 Urine Nitrite Neg (Negative) 09/21/20 15:52 Urine Bilirubin Neg (Negative) 09/21/20 15:52 Urine Urobilinogen < 2.0 mg/dL (<2.0) 09/21/20 15:52 Ur Leukocyte Esterase Neg (Negative) 09/21/20 15:52 Urine WBC (Auto) 1.0 /HPF (0.0-6.0) 09/21/20 15:52 Urine RBC (Auto) 1.0 /HPF (0.0-6.0) 09/21/20 15:52 U Epithel Cells (Auto) < 1.0 /HPF (0-13.0) 09/21/20 15:52 Urine Mucus Few /HPF 09/21/20 15:52 - Diagnostic Impressions Diagnostic Impressions: CXR: FINDINGS: SUPPORT DEVICES: None. HEART / MEDIASTINUM: The heart size and pulmonary vasculature are normal. There is mild aortic tortuosity without aneurysm. LUNGS / PLEURA: No significant pulmonary or pleural abnormality. No pneumothorax. ADDITIONAL FINDINGS: No significant additional findings. IMPRESSION: No acute findings. CT Abd/Pelvis: FINDINGS: HEART: Moderate coronary artery calcifications. THORACIC AORTA: Mild atherosclerotic calcification without acute abnormality. MEDIASTINUM and DAISY: No significant abnormality. LUNGS: Linear atelectasis bilateral lung bases. PLEURA: No significant pleural effusion. No pneumothorax. ADDITIONAL CHEST FINDINGS: None. LIVER: No significant abnormality. GALLBLADDER: No significant abnormality. BILE DUCTS: No significant abnormality. PANCREAS: No significant abnormality. SPLEEN: No significant abnormality. ADRENALS: No significant abnormality. RIGHT KIDNEY and URETER: No significant abnormality. LEFT KIDNEY and URETER: No significant abnormality. STOMACH and SMALL BOWEL: No significant abnormality. No mechanical bowel obstruction. COLON: Colonic diverticulosis is noted most severe at the sigmoid colon with a focal area of concentric mural thickening best seen series 2 image [id number]. There is no significant pericolonic fat stranding. APPENDIX: No significant abnormality. PERITONEUM: No free fluid. No free air. No fluid collection. LYMPH NODES: No significant adenopathy. AORTA and ARTERIES: Mild atherosclerotic calcification without acute abnormality. IVC and VEINS: No significant abnormality. URINARY BLADDER: No significant abnormality. REPRODUCTIVE ORGANS: No significant abnormality. ADDITIONAL FINDINGS: None. SKELETAL SYSTEM: Moderate multilevel degenerative changes are noted of the spine. Spanning osteophytes are noted consistent with DISH. No aggressive osseous lesions. IMPRESSION: 1. Findings at the level the sigmoid colon including diverticulosis with concentric mural thickening concerning for developing diverticulitis. Follow-up after resolution of acute process is recommended to exclude underlying pathology of the colonic wall. CT Chest: FINDINGS: HEART: Moderate coronary artery calcifications. THORACIC AORTA: Mild atherosclerotic calcification without acute abnormality. MEDIASTINUM and DAISY: No significant abnormality. LUNGS: Linear atelectasis bilateral lung bases. PLEURA: No significant pleural effusion. No pneumothorax. ADDITIONAL CHEST FINDINGS: None. LIVER: No significant abnormality. GALLBLADDER: No significant abnormality. BILE DUCTS: No significant abnormality. PANCREAS: No significant abnormality. SPLEEN: No significant abnormality. ADRENALS: No significant abnormality. RIGHT KIDNEY and URETER: No significant abnormality. LEFT KIDNEY and URETER: No significant abnormality. STOMACH and SMALL BOWEL: No significant abnormality. No mechanical bowel obstruction. COLON: Colonic diverticulosis is noted most severe at the sigmoid colon with a focal area of concentric mural thickening best seen series 2 image [id number]. There is no significant pericolonic fat stranding. APPENDIX: No significant abnormality. PERITONEUM: No free fluid. No free air. No fluid collection. LYMPH NODES: No significant adenopathy. AORTA and ARTERIES: Mild atherosclerotic calcification without acute abnormality. IVC and VEINS: No significant abnormality. URINARY BLADDER: No significant abnormality. REPRODUCTIVE ORGANS: No significant abnormality. ADDITIONAL FINDINGS: None. SKELETAL SYSTEM: Moderate multilevel degenerative changes are noted of the spine. Spanning osteophytes are noted consistent with DISH. No aggr essive osseous lesions. IMPRESSION: 1. Findings at the level the sigmoid colon including diverticulosis with concentric mural thickening concerning for developing diverticulitis. Follow-up after resolution of acute process is recommended to exclude underlying pathology of the colonic wall. V/Q Scan: Procedure: The patient was administered 5.3 mCi of technetium 99m labeled MAA intravenously. Findings: No focal segmental defects are seen on perfusion imaging. Impression: Normal perfusion scan. Assessment and Plan Assessment and plan: Diverticulosis -CT Abd Pelvis reveals diverticulosis with concentric mural thickening concerning for developing diverticulitis -Complains of epigastric pain with radiation to left lower and right lower quadrant -Started on empiric IV Zosyn -GI consulted -N.p.o. -Supportive care Acute Chest Pain -R/O ACS -?? r/t GERD -Initiate chest pain protocol -Continuous telemetry monitoring -Continue supportive care -Pain mgmt -Troponin negative x2 -CXR negative -EKG unrevealing for acute ischemic abnormalities -Echo pending -Day team may consider cardiology consult Elevated D-dimer -@ 371.86 -VQ scan negative for PE CRISTINO -Cr on admission 2.3 -?? Superimposed CKD -Hydrate with IVF -Monitor I's and O's -Avoid nephrotoxic agents -Renal dose all meds -Monitor BMP -If no improvement in the next 24 hours may consider nephrology consult Anxiety -Denies formal diagnosis of anxiety but complains of what he believes to be recent anxiety attack -IV Ativan as needed -Supportive care HTN -Monitor BP -Resume home hypertensive meds, when appropriate GERD -History of GERD previously on Protonix -May be contributing to complaints of chest pain -Denies recent use of Protonix -Start IV Protonix twice daily Tobacco use -Admits to chewing tobacco daily -Counseled for cessation -Nicotine patch as needed GI and DVT PPx -On heparin -On Protonix Advance Directives: No VTE prophylaxis?: Chemical, Mechanical Plan of care discussed with patient/family: Yes
[2020-09-22 01:38] LABS: Basophils # (Auto) 0.1 K/mm3 (0.0-0.1); Eosinophils # (Auto) 0.1 K/mm3 (0.0-0.4); Eosinophils % (Auto) 1.1 % (0.0-4.3); Monocytes # (Auto) 0.5 K/mm3 (0.0-0.8); Monocytes % (Auto) 8.4 % (0.0-7.3)
[2020-09-22 01:50] LABS: Basophils % (Auto) 0.8 % (0.0-1.8); Hematocrit 45.4 % (35.5-45.6); Lymphocytes # (Auto) 2.1 K/mm3 (1.2-5.4); Lymphocytes % (Auto) 33.9 % (13.4-35.0); Mean Corpuscular HGB Conc 33 % (32-34); Mean Corpuscular Volume 80 fl (84-94); Platelet Count 379 K/mm3 (140-440); Red Blood Count 5.66 M/mm3 (3.65-5.03); Red Cell Distribution Width 14.7 % (13.2-15.2)
[2020-09-22 01:53] LABS: Calcium 9.9 mg/dL (8.4-10.2)
[2020-09-22] MEDS: D5W/0.45% NACL 1,000 ML IV SCH ×2 (02:39→17:46)
[2020-09-22] MEDS ORDERED: NICOTINE 14 MG/24 HR PATCH TD ONE (02:45)
--- NOTE | 2020-09-22 09:32 | Progress Note ---
Assessment and Plan Assessment and plan: 75-year-old -Vincentian male with history of WENDY, CAD, chronic lumbar pain, hypertension, GERD, arthritis, prostate cancer, questionable history of anxiety who presents [facility] ED with complaints of shortness of breath, chest pain, abdominal pain, and " anxiety attack". Patient complains of 7/10 sharp abdominal pain which started in the right upper quadrant, now in the epigastric region with radiation to lower abdomen. His abdominal pain started a few weeks ago in the right upper quadrant, it was intermittent, and he thought that he had pulled an abdominal muscle. The pain has since progressed to the epigastric region with radiation to the lower abdomen and is now constant. Pain is relieved with pain meds. Endorses history of GERD not currently on PPI. Additionally patient complains of shortness of breath and chest pain. On examination when patient was asked to point to the area of chest where he felt the pain, patient made note to epigastric area. However he mentioned that approximately 1 to 2 days ago [employer], he had substernal nonradiating 8/10 chest pain. Patient shortness of breath is exacerbated with abdominal and chest pain, and is relieved with rest. Diverticulosis/diverticulitis Chest pain Elevated D-dimer Acute kidney injury Anxiety disorder Hypertension GERD Tobacco abuse 09/22/2020. CT Abd Pelvis reveals diverticulosis with concentric mural thickening concerning for developing diverticulitis. Continue empiric Zosyn. Await GI consultation. Continue chest pain protocol and telemetry monitoring. Troponin negative x2. EKG unrevealing for acute ischemic abnormality. Follow-up echocardiogram. Cardiology consultation pending. VQ scan negative for PE. Patient's creatinine elevated 2.2. Patient with creatinine of 1.28 April 2019. Check renal ultrasound and consult nephrology for further evaluation. History Interval history: No new issues overnight Hospitalist Physical - Constitutional Vitals: Temp Pulse Resp BP Pulse Ox 97.9 F 73 25 H 120/68 96 09/21/20 15:41 09/22/20 04:47 09/22/20 01:00 09/22/20 01:00 09/22/20 06:25 General appearance: Present: no acute distress, well-nourished - EENT Eyes: Present: PERRL, EOM intact ENT: hearing intact, clear oral mucosa, dentition normal - Neck Neck: Present: supple, normal ROM - Respiratory Respiratory effort: normal Respiratory: bilateral: CTA - Cardiovascular Rhythm: regular Heart Sounds: Present: S1 & S2. Absent: gallop, rub - Extremities Extremities: no ischemia, No edema, Full ROM - Abdominal General gastrointestinal: soft, non-tender, non-distended, normal bowel sounds - Integumentary Integumentary: Present: clear, warm, dry - Neurologic Neurologic: CNII-XII intact, moves all extremities HEART Score - HEART Score EKG: Normal Age: > 65 Risk factors: 1-2 risk factors Troponin: Troponin T < 0.010 ng/mL (0.00-0.029) 09/22/20 01:25 Troponin: < normal limit - Critical Actions Critical Actions: 0-3 pts:0.9-1.7%risk of adverse cardiac event.Candidate for discharge Results - Labs CBC & Chem 7: 09/22/20 01:25 09/22/20 01:25 Labs: Laboratory Last Values WBC 6.1 K/mm3 (4.5-11.0) 09/22/20 01:25 RBC 5.66 M/mm3 (3.65-5.03) H 09/22/20 01:25 Hgb 15.0 gm/dl (11.8-15.2) 09/22/20 01:25 Hct 45.4 % (35.5-45.6) 09/22/20 01:25 MCV 80 fl (84-94) L 09/22/20 01:25 MCH 27 pg (28-32) L 09/22/20 01:25 MCHC 33 % (32-34) 09/22/20 01:25 RDW 14.7 % (13.2-15.2) 09/22/20 01:25 Plt Count 379 K/mm3 (140-440) 09/22/20 01:25 Lymph % (Auto) 33.9 % (13.4-35.0) 09/22/20 01:25 [place] % (Auto) 8.4 % (0.0-7.3) H 09/22/20 01:25 Eos % (Auto) 1.1 % (0.0-4.3) 09/22/20 01:25 Baso % (Auto) 0.8 % (0.0-1.8) 09/22/20 01:25 Lymph # (Auto) 2.1 K/mm3 (1.2-5.4) 09/22/20 01:25 Garden # (Auto) 0.5 K/mm3 (0.0-0.8) 09/22/20 01:25 Eos # (Auto) 0.1 K/mm3 (0.0-0.4) 09/22/20 01:25 Baso # (Auto) 0.1 K/mm3 (0.0-0.1) 09/22/20 01:25 Seg Neutrophils % 55.3 % (40.0-70.0) 09/22/20 01:25 Seg Neutrophils # 3.5 K/mm3 (1.8-7.7) 09/22/20 01:25 D-Dimer 371.86 ng/mlDDU (0-234) H 09/21/20 18:07 Sodium 133 mmol/L (137-145) L 09/22/20 01:25 Potassium 3.6 mmol/L (3.6-5.0) 09/22/20 01:25 Chloride 97.4 mmol/L (98-107) L 09/22/20 01:25 Carbon Dioxide 20 mmol/L (22-30) L 09/22/20 01:25 Anion Gap 19 mmol/L 09/22/20 01:25 BUN 26 mg/dL (9-20) H 09/22/20 01:25 Creatinine 2.2 mg/dL (0.8-1.3) H 09/22/20 01:25 Estimated GFR 35 ml/min 09/22/20 01:25 BUN/Creatinine Ratio 12 % 09/22/20 01:25 Glucose 106 mg/dL (75-100) H 09/22/20 01:25 Hemoglobin A1c 5.8 % (4-6) 09/22/20 01:25 Calcium 9.9 mg/dL (8.4-10.2) 09/22/20 01:25 Total Bilirubin 0.80 mg/dL (0.1-1.2) 09/21/20 11:17 AST 16 units/L (5-40) 09/21/20 11:17 ALT 17 units/L (7-56) 09/21/20 11:17 Alkaline Phosphatase 68 units/L (35-129) 09/21/20 11:17 Troponin T < 0.010 ng/mL (0.00-0.029) 09/22/20 01:25 NT-Pro-B Natriuret Pep 31.43 pg/mL (0-900) 09/21/20 11:17 Total Protein 8.0 g/dL (6.3-8.2) 09/21/20 11:17 Albumin 4.2 g/dL (3.9-5) 09/21/20 11:17 Albumin/Globulin Ratio 1.1 % 09/21/20 11:17 Lipase 48 units/L (13-60) 09/21/20 18:10 Urine Color Yellow (Yellow) 09/21/20 15:52 Urine Turbidity Clear (Clear) 09/21/20 15:52 Urine pH 5.0 (5.0-7.0) 09/21/20 15:52 Ur Specific [place] 1.017 (1.003-1.030) 09/21/20 15:52 Urine Protein <15 mg/dl mg/dL (Negative) 09/21/20 15:52 Urine Glucose (UA) Neg mg/dL (Negative) 09/21/20 15:52 Urine Ketones Neg mg/dL (Negative) 09/21/20 15:52 Urine Blood Neg (Negative) 09/21/20 15:52 Urine Nitrite Neg (Negative) 09/21/20 15:52 Urine Bilirubin Neg (Negative) 09/21/20 15:52 Urine Urobilinogen < 2.0 mg/dL (<2.0) 09/21/20 15:52 Ur Leukocyte Esterase Neg (Negative) 09/21/20 15:52 Urine WBC (Auto) 1.0 /HPF (0.0-6.0) 09/21/20 15:52 Urine RBC (Auto) 1.0 /HPF (0.0-6.0) 09/21/20 15:52 U Epithel Cells (Auto) < 1.0 /HPF (0-13.0) 09/21/20 15:52 Urine Mucus Few /HPF 09/21/20 15:52 Mack/IV: Voiding Method Urinal Active Medications - Current Medications Current Medications: Generic Name Dose Route Start Last Admin Trade Name Freq PRN Reason Stop Dose Admin Acetaminophen 650 mg 09/22/20 00:43 Acetaminophen 650 Mg Rect Supp MA Q4H PRN Pain MILD(1-3)/Fever >100.5/ROY Albuterol 2.5 mg 09/22/20 00:43 Albuterol 2.5 Mg/3 Ml Nebu IH Q4HRT PRN Shortness Of Breath Heparin Sodium (Porcine) 5,000 unit 09/22/20 10:00 Heparin 5,000 Unit/1 Ml Vial SUB-Q BID ADAMA Hydromorphone HCl 0.5 mg 09/22/20 00:43 09/22/20 01:21 Hydromorphone 1 Mg/1 Ml Inj IV 0.5 mg Q3H PRN Administration Pain , Severe (7-10) Dextrose/Sodium Chloride 1,000 mls @ 75 mls/hr 09/22/20 01:00 09/22/20 02:39 D5/0.45ns IV 75 mls/hr DIRECT ADAMA Administration Piperacillin Sod/Tazobactam Sod 2.25 gm in 50 mls @ 100 mls/hr 09/22/20 10:00 Zosyn/Ns 2.25 Gm/50ml IV Q6H ADAMA Lorazepam 1 mg 09/22/20 00:51 Lorazepam 2 Mg/Ml Vial IV Q4H PRN Anxiety Morphine Sulfate 2 mg 09/22/20 00:43 Morphine 2 Mg/1 Ml Inj IV Q4H PRN Pain, Moderate (4-6) Nicotine 14 mg 09/22/20 10:00 Nicotine 14 Mg/24 Hr Patch TD QDAY [facility] Nitroglycerin 0.4 mg 09/22/20 00:48 Nitroglycerin 0.4 Mg Tab Subl SL Q5M PRN Chest Pain Ondansetron HCl 4 mg 09/22/20 00:43 Ondansetron 4 Mg/2 Ml Inj IV Q6H PRN Nausea And Vomiting Pantoprazole Sodium 40 mg 09/22/20 10:00 Pantoprazole 40 Mg Inj IV BID [facility] Sodium Chloride 10 ml 09/22/20 10:00 Sodium Chloride 0.9% 10 Ml Flush Syringe IV BID [facility] Sodium Chloride 10 ml 09/22/20 00:43 Sodium Chloride 0.9% 10 Ml Flush Syringe IV PRN PRN LINE FLUSH
[2020-09-22] MEDS: PIPERACIL-TAZO 2.25 GM/50 ML 2.25 GM/50 ML BAG IV SCH ×4 (10:00→21:28)
--- NOTE | 2020-09-22 12:42 | Ultrasound Report ---
ULTRASOUND RENAL INDICATION / CLINICAL INFORMATION: ARF. COMPARISON: None available. FINDINGS: RIGHT KIDNEY: Length = 9.4 cm. [normal > 9 cm] - Parenchymal Thickness = 1.5 cm. [normal > 1.5 cm] - Echogenicity: Increased - Hydronephrosis: None. - Cyst or mass: No significant abnormality. - Stones: None seen. LEFT KIDNEY: Length = 9.0 cm. [normal > 9 cm] - Parenchymal Thickness = 1.4 cm. [normal > 1.5 cm] - Echogenicity: Increased - Hydronephrosis: None. - Cyst or mass: No significant abnormality. - Stones: None seen. URINARY BLADDER: No significant abnormality. FREE FLUID: None. ADDITIONAL FINDINGS: None. IMPRESSION: Normal size but slightly echogenic kidneys consistent with medical renal disease. No hydronephrosis. Signer Name: Aldo Paez Jr, MD Signed: 09/22/2020 12:38 PM Workstation Name: [id number]
--- NOTE | 2020-09-22 13:02 | Consultation ---
History of Present Illness - Reason for Consult Consult date: 09/22/20 acute renal failure, chronic renal failure - History of Present Illness The patient is a 75 YO AAM with history of WENDY, HTN, CAD, chronic lumbar pain, GERD, arthritis, prostate cancer and CKD who presented to [facility] ED 09/21 with complaints of shortness of breath, chest pain, abdominal pain, and "anxiety attack". Patient complains of 7/10 sharp abdominal pain in the epigastric region with radiation to lower abdomen. Patient also complains of shortness of breath and chest pain. Patient states he had what he believed to be an " anxiety attack". Denies PND, orthopnea, lower extremity edema, palpitations, N, V, D, dysuria, hematuria, cough, fever, chills, melena or recent sick contacts. Labs significant for Creat 2.3 and BUN 25. Home meds include Ibuprofen and Losartan/HCTZ. Nephrology was consulted for further evaluation and treatment of CRISTINO. Past History Past Medical History: CAD, GERD, hypertension, renal failure, other (Chews tobacco,, chronic lumbar pain, prostate CA,?? Anxiety, WENDY, arthritis) Past Surgical History: Other (Prostatectomy, Herniorrhaphy, testicular torsion) Social history: , Lives alone, full code, other (Endorses chewing tobacco). denies: smoking, alcohol abuse, prescription drug abuse, IV drug use Family history: hypertension Medications and Allergies Allergies Allergy/AdvReac Type Severity Reaction Status Date / Time meperidine [From Demerol] Allergy Itching Verified 08/22/17 11:31 Home Medications Medication Instructions Recorded Confirmed Last Taken Type Amlodipine Besylate 10 mg PO DAILY 02/23/15 09/23/20 09/01/17 05:15 History Ibuprofen [Motrin 600 MG tab] 600 mg PO TID PRN 04/06/15 09/23/20 08/22/17 History Clopidogrel Bisulfate [Plavix] 75 mg PO DAILY 08/26/17 09/23/20 08/26/17 History Losartan/Hydrochlorothiazide 1 each PO DAILY 08/26/17 09/23/20 09/01/17 05:15 History [Losartan-Hctz 100-25 mg Tab] Pregabalin [Lyrica] 75 mg PO BID 08/26/17 09/23/20 09/01/17 05:15 History Simvastatin (Nf) [Zocor TAB] 20 mg PO QHS 08/26/17 09/23/20 08/31/17 History Neomy/Polymyx B/Hc Opth Susp 1 drop OS Q6HR #1 bottle 09/19/17 09/23/20 Unknown Rx [Cortisporin (OPTH) Susp] Active Meds: Active Medications Acetaminophen (Acetaminophen 650 Mg Rect Supp) 650 mg IN Q4H PRN PRN Reason: Pain MILD(1-3)/Fever >100.5/ROY Albuterol (Albuterol 2.5 Mg/3 Ml Nebu) 2.5 mg IH Q4HRT PRN PRN Reason: Shortness Of Breath Heparin Sodium (Porcine) (Heparin 5,000 Unit/1 Ml Vial) 5,000 unit SUB-Q BID [facility] Hydromorphone HCl (Hydromorphone 1 Mg/1 Ml Inj) 0.5 mg IV Q3H PRN PRN Reason: Pain , Severe (7-10) Last Admin: 09/22/20 01:21 Dose: 0.5 mg Documented by: Dextrose/Sodium Chloride (D5/0.45ns) 1,000 mls @ 75 mls/hr IV DIRECT ADAMA Last Admin: 09/22/20 02:39 Dose: 75 mls/hr Documented by: Piperacillin Sod/Tazobactam Sod (Zosyn/Ns 2.25 Gm/50ml) 2.25 gm in 50 mls @ 100 mls/hr IV Q6H [facility]AMA Lorazepam (Lorazepam 2 Mg/Ml Vial) 1 mg IV Q4H PRN PRN Reason: Anxiety Morphine Sulfate (Morphine 2 Mg/1 Ml Inj) 2 mg IV Q4H PRN PRN Reason: Pain, Moderate (4-6) Nicotine (Nicotine 14 Mg/24 Hr Patch) 14 mg TD QDAY [facility] Nitroglycerin (Nitroglycerin 0.4 Mg Tab Subl) 0.4 mg SL Q5M PRN PRN Reason: Chest Pain Ondansetron HCl (Ondansetron 4 Mg/2 Ml Inj) 4 mg IV Q6H PRN PRN Reason: Nausea And Vomiting Pantoprazole Sodium (Pantoprazole 40 Mg Inj) 40 mg IV BID [facility] Sodium Chloride (Sodium Chloride 0.9% 10 Ml Flush Syringe) 10 ml IV BID [facility] Sodium Chloride (Sodium Chloride 0.9% 10 Ml Flush Syringe) 10 ml IV PRN PRN PRN Reason: LINE FLUSH Review of Systems Constitutional: no weight loss, no weight gain, no fever, no chills, no anorexia, no weakness Ears, nose, mouth and throat: no epistaxis Cardiovascular: chest pain, high blood pressure, no orthopnea, no edema, no syncope, no shortness of breath Respiratory: shortness of breath, no cough, no cough with sputum, no excessive sputum, no home oxygen Gastrointestinal: abdominal pain, no nausea, no vomiting, no diarrhea, no melena Genitourinary Male: no hematuria Neurological: no syncope, no aphasia, no change in speech, no change in mentation, no confusion, no memory loss Exam - Vital Signs Vital signs: Vital Signs Temp Pulse Resp BP Pulse Ox 98.1 F 69 22 124/62 100 09/21/20 11:17 09/21/20 11:17 09/21/20 11:17 09/21/20 11:17 09/21/20 11:17 Results - Lab Results 09/22/20 01:25 09/24/20 04:56 Most recent lab results Calcium 9.9 mg/dL (8.4-10.2) 09/22/20 01:25 Assessment and Plan 1. Acute kidney injury: Suspect vasomotor CRISTINO superimposed on CKD. UA bland. ATN likely. Renal US negative for hydro. Continue IV fluids. Monitor renal function. Creatinine level improving. Avoid nephrotoxic agents. Meds dosage based on GFR. 2. FEN: Monitor lytes and volume status. 3. Diverticulosis: CT Abd Pelvis reveals diverticulosis with concentric mural thickening concerning for developing diverticulitis. On IV Zosyn. GI consulted. NPO. Supportive care. 4. Acute Chest Pain: R/O ACS. Chest pain protocol. Serial Troponin negative. CXR negative. EKG unrevealing for acute ischemic abnormalities. Cardiology consulted. 5. Elevated D-dimer: VQ scan negative for PE. 6. Anxiety. 7. HTN: Monitor BP. Adjust meds as needed. 8. Tobacco use: Admits to chewing tobacco daily. Counseled for cessation. Subjective: Patient was seen and examined at the bedside. Examination: General appearance: well-developed, appears stated age, well nourished, not in distress HEENT: ALINA, atraumatic Neck: trachea midline Respiratory: ctab Heart: S1S2, regular, no murmur Abdomen: soft, bowel sounds heard, NT Integumentary: no obvious rash Neurologic: AO, able to move extremities Ext: no edema noted
[2020-09-22] MEDS: NICOTINE 14 MG/24 HR PATCH TD SCH (13:13)
[2020-09-22] MEDS: HEPARIN 5,000 UNIT/1 ML VIAL SUB-Q SCH ×2 (13:14→21:29)
[2020-09-22] MEDS: PANTOPRAZOLE 40 MG INJ IV SCH ×2 (13:14→21:28)
--- NOTE | 2020-09-22 13:32 | Electrocardiograph Report ---
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
--- NOTE | 2020-09-22 13:39 | Electrocardiograph Report ---
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
--- NOTE | 2020-09-22 13:40 | Electrocardiograph Report ---
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
[2020-09-22 13:48] LABS: Creatinine,Urine 192.8 mg/dL (0.1-20.0)
--- NOTE | 2020-09-22 14:24 | Consultation ---
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 He was better but was encouraged to come to the emergency room for evaluation. He notes intermittent sharp upper abdominal pains lasting minutes going on for the last week. They have been nonprogressive. He has decreased p.o. intake because he notes that eating triggers these attacks. He denies fevers chills or sweats. His bowel movements occur every 2 or 3 days and this is unchanged. There is been no GI bleeding. He denies significant weight loss. CT scan performed showed possible diverticulitis. Patient is unsure when he last had a colonoscopy, but he believes it was around the time of his prostate resection. Currently, he is resting comfortably. His PCP is Dr. Quintero. Medications reviewed. Past History Past Medical History: CAD, cancer (Prostate), GERD, hypertension, other (Panic attacks since 1 yr ago, when he had housing problems) Past Surgical History: Other (Robotic Prostatectomy - 2018, Herniorrhaphy, testicular torsion) Social history: , Lives alone, full code, other (Endorses chewing tobacco). denies: smoking, alcohol abuse, prescription drug abuse, IV drug use Family history: hypertension Medications and Allergies Allergies Allergy/AdvReac Type Severity Reaction Status Date / Time meperidine [From Demerol] Allergy Itching Verified 08/22/17 11:31 Home Medications Medication Instructions Recorded Confirmed Last Taken Type Amlodipine Besylate 10 mg PO DAILY 02/23/15 08/22/17 09/01/17 05:15 History Ibuprofen [Motrin 600 MG tab] 600 mg PO TID PRN 04/06/15 09/01/17 08/22/17 History Clopidogrel Bisulfate [Plavix] 75 mg PO DAILY 08/26/17 09/01/17 08/26/17 History Losartan/Hydrochlorothiazide 1 each PO DAILY 08/26/17 08/26/17 09/01/17 05:15 History [Losartan-Hctz 100-25 mg Tab] Pregabalin [Lyrica] 75 mg PO BID 08/26/17 08/26/17 09/01/17 05:15 History Simvastatin (Nf) [Zocor TAB] 20 mg PO QHS 08/26/17 09/01/17 08/31/17 History Ciprofloxacin HCl [Cipro] 500 mg PO BID #14 tablet 09/19/17 Unknown Rx Neomy/Polymyx B/Hc Opth Susp 1 drop OS Q6HR #1 bottle 09/19/17 Unknown Rx [Cortisporin (OPTH) Susp] Active Meds: Active Medications Acetaminophen (Acetaminophen 650 Mg Rect Supp) 650 mg DE Q4H PRN PRN Reason: Pain MILD(1-3)/Fever >100.5/ROY Albuterol (Albuterol 2.5 Mg/3 Ml Nebu) 2.5 mg IH Q4HRT PRN PRN Reason: Shortness Of Breath Heparin Sodium (Porcine) (Heparin 5,000 Unit/1 Ml Vial) 5,000 unit SUB-Q BID [facility] Last Admin: 09/22/20 13:14 Dose: 5,000 unit Documented by: Hydromorphone HCl (Hydromorphone 1 Mg/1 Ml Inj) 0.5 mg IV Q3H PRN PRN Reason: Pain , Severe (7-10) Last Admin: 09/22/20 01:21 Dose: 0.5 mg Documented by: Dextrose/Sodium Chloride (D5/0.45ns) 1,000 mls @ 75 mls/hr IV DIRECT [facility] Last Admin: 09/22/20 02:39 Dose: 75 mls/hr Documented by: Piperacillin Sod/Tazobactam Sod (Zosyn/Ns 2.25 Gm/50ml) 2.25 gm in 50 mls @ 100 mls/hr IV Q6H [facility] Lorazepam (Lorazepam 2 Mg/Ml Vial) 1 mg IV Q4H PRN PRN Reason: Anxiety Morphine Sulfate (Morphine 2 Mg/1 Ml Inj) 2 mg IV Q4H PRN PRN Reason: Pain, Moderate (4-6) Nicotine (Nicotine 14 Mg/24 Hr Patch) 14 mg TD QDAY [facility] Last Admin: 09/22/20 13:13 Dose: 14 mg Documented by: Nitroglycerin (Nitroglycerin 0.4 Mg Tab Subl) 0.4 mg SL Q5M PRN PRN Reason: Chest Pain Ondansetron HCl (Ondansetron 4 Mg/2 Ml Inj) 4 mg IV Q6H PRN PRN Reason: Nausea And Vomiting Pantoprazole Sodium (Pantoprazole 40 Mg Inj) 40 mg IV BID [facility] Last Admin: 09/22/20 13:14 Dose: 40 mg Documented by: Sodium Chloride (Sodium Chloride 0.9% 10 Ml Flush Syringe) 10 ml IV BID [facility] Sodium Chloride (Sodium Chloride 0.9% 10 Ml Flush Syringe) 10 ml IV PRN PRN PRN Reason: LINE FLUSH Review of Systems All systems: negative (as per HPI) Exam - Constitutional Vitals: Temp Pulse Resp BP Pulse Ox 98.0 F 66 18 93/48 98 09/22/20 04:10 09/22/20 08:03 09/22/20 04:10 09/22/20 04:10 09/22/20 14:00 General appearance: Present: no acute distress - EENT Eyes: Present: PERRL, EOM intact ENT: hearing intact - Respiratory Respiratory effort: normal Respiratory: bilateral: CTA - Cardiovascular Rhythm: regular Heart Sounds: Present: S1 & S2 - Extremities Extremities: No edema - Abdominal General gastrointestinal: Present: soft, non-tender Results - Labs CBC & Chem 7: 09/22/20 01:25 09/22/20 01:25 Labs: Abnormal lab results 09/21/20 09/22/20 09/22/20 Range/Units 18:07 01:25 01:25 RBC 5.66 H (3.65-5.03) M/mm3 MCV 80 L (84-94) fl MCH 27 L (28-32) pg [place] % (Auto) 8.4 H (0.0-7.3) % D-Dimer 371.86 H (0-234) ng/mlDDU Sodium 133 L (137-145) mmol/L Chloride 97.4 L (98-107) mmol/L Carbon Dioxide 20 L (22-30) mmol/L BUN 26 H (9-20) mg/dL Creatinine 2.2 H (0.8-1.3) mg/dL Glucose 106 H (75-100) mg/dL Urine Creatinine (0.1-20.0) mg/dL 09/22/20 Range/Units 12:30 RBC (3.65-5.03) M/mm3 MCV (84-94) fl MCH (28-32) pg [place] % (Auto) (0.0-7.3) % D-Dimer (0-234) ng/mlDDU Sodium (137-145) mmol/L Chloride (98-107) mmol/L Carbon Dioxide (22-30) mmol/L BUN (9-20) mg/dL Creatinine (0.8-1.3) mg/dL Glucose (75-100) mg/dL Urine Creatinine 192.8 H (0.1-20.0) mg/dL - Imaging and Cardiology CT scan - abdomen: report reviewed (Concentric mural thickening sigmoid colon, with tics, possible early diverticulitis) Assessment and Plan 1. Abdominal pain/abnormal CT scan -pain symptoms are fairly mild. They well could be indicative of early developing diverticulitis. Impending mass lesion needs to be considered but is less likely if patient truly had a colonoscopy at the time of his prostatectomy which was in 2018. He has no symptoms of bowel movement changes. Also, patient is on Plavix. -Would give antibiotics for possible diverticulitis -Would advance diet as tolerated and discharge when doing well. -Patient will need colonoscopy after resolution of possible diverticulitis, and off Plavix. This would likely be done after 3 to 4 weeks. We will sign off. Please have patient follow-up with us as outpatient in 3 to 4 weeks.
--- NOTE | 2020-09-22 17:13 | Consultation ---
History of Present Illness Consult date: 09/22/20 Requesting physician: THAO COPPOLA Consult reason: chest pain History of present illness: Pt is a 75-year-old AA male who presented with complaints of progressively worsening abdominal pain that started 3 weeks prior to arrival. Pt states pain initially began in the RUQ and was mild and intermittent. A few days prior to arrival, the pain became sharp, constant, and began radiating all throughout his abdomen. Upon assessment, pt also reports a burning epigastric sensation occasionally. Associated with SOB at times, which pt attributes to "anxiety." Sx aggravated by eating. Relieved by rest and narcotics. Pt denies any additional cardiac sx. Trop neg x 3. ECG reveals no acute ischemic changes. CXR reveals no acute findings. LHC performed 01/2015 revealed mild luminal irregularities and normal LV fxn. Past History Past Medical History: CAD, cancer (prostate), GERD, hypertension, other (WENDY, anxiety) Past Surgical History: Other (prostatectomy - 2018). denies: valve replacement, CABG, PTCA Social history: other (chewing tobacco). denies: smoking, alcohol abuse Family history: hypertension Medications and Allergies Allergies Allergy/AdvReac Type Severity Reaction Status Date / Time meperidine [From Demerol] Allergy Itching Verified 08/22/17 11:31 Home Medications Medication Instructions Recorded Confirmed Last Taken Type Amlodipine Besylate 10 mg PO DAILY 02/23/15 08/22/17 09/01/17 05:15 History Ibuprofen [Motrin 600 MG tab] 600 mg PO TID PRN 04/06/15 09/01/17 08/22/17 History Clopidogrel Bisulfate [Plavix] 75 mg PO DAILY 08/26/17 09/01/17 08/26/17 History Losartan/Hydrochlorothiazide 1 each PO DAILY 08/26/17 08/26/17 09/01/17 05:15 History [Losartan-Hctz 100-25 mg Tab] Pregabalin [Lyrica] 75 mg PO BID 08/26/17 08/26/17 09/01/17 05:15 History Simvastatin (Nf) [Zocor TAB] 20 mg PO QHS 08/26/17 09/01/17 08/31/17 History Ciprofloxacin HCl [Cipro] 500 mg PO BID #14 tablet 09/19/17 Unknown Rx Neomy/Polymyx B/Hc Opth Susp 1 drop OS Q6HR #1 bottle 09/19/17 Unknown Rx [Cortisporin (OPTH) Susp] Active Meds: Active Medications Acetaminophen (Acetaminophen 650 Mg Rect Supp) 650 mg NM Q4H PRN PRN Reason: Pain MILD(1-3)/Fever >100.5/ROY Albuterol (Albuterol 2.5 Mg/3 Ml Nebu) 2.5 mg IH Q4HRT PRN PRN Reason: Shortness Of Breath Heparin Sodium (Porcine) (Heparin 5,000 Unit/1 Ml Vial) 5,000 unit SUB-Q BID [facility] Last Admin: 09/22/20 13:14 Dose: 5,000 unit Documented by: Hydromorphone HCl (Hydromorphone 1 Mg/1 Ml Inj) 0.5 mg IV Q3H PRN PRN Reason: Pain , Severe (7-10) Last Admin: 09/22/20 01:21 Dose: 0.5 mg Documented by: Dextrose/Sodium Chloride (D5/0.45ns) 1,000 mls @ 75 mls/hr IV DIRECT [facility] Last Admin: 09/22/20 02:39 Dose: 75 mls/hr Documented by: Piperacillin Sod/Tazobactam Sod (Zosyn/Ns 2.25 Gm/50ml) 2.25 gm in 50 mls @ 100 mls/hr IV Q6H [facility] Lorazepam (Lorazepam 2 Mg/Ml Vial) 1 mg IV Q4H PRN PRN Reason: Anxiety Morphine Sulfate (Morphine 2 Mg/1 Ml Inj) 2 mg IV Q4H PRN PRN Reason: Pain, Moderate (4-6) Nicotine (Nicotine 14 Mg/24 Hr Patch) 14 mg TD QDAY [facility] Last Admin: 09/22/20 13:13 Dose: 14 mg Documented by: Nitroglycerin (Nitroglycerin 0.4 Mg Tab Subl) 0.4 mg SL Q5M PRN PRN Reason: Chest Pain Ondansetron HCl (Ondansetron 4 Mg/2 Ml Inj) 4 mg IV Q6H PRN PRN Reason: Nausea And Vomiting Pantoprazole Sodium (Pantoprazole 40 Mg Inj) 40 mg IV BID [facility] Last Admin: 09/22/20 13:14 Dose: 40 mg Documented by: Sodium Chloride (Sodium Chloride 0.9% 10 Ml Flush Syringe) 10 ml IV BID [facility] Sodium Chloride (Sodium Chloride 0.9% 10 Ml Flush Syringe) 10 ml IV PRN PRN PRN Reason: LINE FLUSH Review of Systems Constitutional: no fever, no chills, no sweats Ears, nose, mouth and throat: no nasal congestion, no sore throat Cardiovascular: shortness of breath, no chest pain, no orthopnea, no p alpitations, no edema, no syncope, no lightheadedness, no dyspnea on exertion, no paroxysmal nocturnal dyspnea, no claudication Respiratory: shortness of breath, no cough, no dyspnea on exertion Gastrointestinal: abdominal pain, no nausea, no vomiting, no diarrhea, no constipation, no hematemesis, no melena Genitourinary Male: no dysuria, no flank pain Musculoskeletal: no neck stiffness, no neck pain, no myalgias Integumentary: no rash, no wounds Neurological: no head injury, no paralysis, no weakness, no parathesias, no numbness, no tingling, no seizures, no syncope, no vertigo, no headaches Psychiatric: anxiety Endocrine: no cold intolerance, no heat intolerance, no polydipsia, no polyuria Hematologic/Lymphatic: no easy bruising, no easy bleeding Allergic/Immunologic: no anaphylaxis Physical Examination Last Vital Signs Temp 98.0 F 09/22/20 04:10 Pulse 71 09/22/20 14:00 Resp 18 09/22/20 04:10 BP 93/48 09/22/20 04:10 Pulse Ox 98 09/22/20 14:00 General appearance: no acute distress HEENT: Positive: EOMI, Normocephaly, Mucus Membranes Moist Neck: Positive: neck supple, trachea midline. Negative: JVD/HJR Cardiac: Positive: Reg Rate and Rhythm, S1/S2 Lungs: Positive: clear to auscultation (bilaterally) Neuro: Positive: Grossly Intact Abdomen: Positive: Soft, Tender Skin: Negative: Rash Musculoskeletal: No Pain Extremities: Present: lower extr. pulses. Absent: edema Results 09/22/20 01:25 09/22/20 01:25 CBC 09/22/20 Range/Units 01:25 WBC 6.1 (4.5-11.0) K/mm3 RBC 5.66 H (3.65-5.03) M/mm3 Hgb 15.0 (11.8-15.2) gm/dl Hct 45.4 (35.5-45.6) % Plt Count 379 (140-440) K/mm3 Lymph # (Auto) 2.1 (1.2-5.4) K/mm3 [place] # (Auto) 0.5 (0.0-0.8) K/mm3 Eos # (Auto) 0.1 (0.0-0.4) K/mm3 Baso # (Auto) 0.1 (0.0-0.1) K/mm3 Comprehensive Metabolic Panel 09/22/20 Range/Units 01:25 Sodium 133 L (137-145) mmol/L Potassium 3.6 (3.6-5.0) mmol/L Chloride 97.4 L (98-107) mmol/L Carbon Dioxide 20 L (22-30) mmol/L BUN 26 H (9-20) mg/dL Creatinine 2.2 H (0.8-1.3) mg/dL Glucose 106 H (75-100) mg/dL Calcium 9.9 (8.4-10.2) mg/dL - Imaging and Cardiology Cardiac cath: report reviewed (01/2015 - mild luminal irregularities, normal LV fxn) EKG: report reviewed, image reviewed - EKG Interpretation EKG: no acute changes EKG interpretations - Telemetry EKG Rhythm: Sinus Rhythm - EKG Sinus rhythms and dysrhythmias: sinus rhythm Ventricular dysrhythmias: ventricular premature com Assessment and Plan Echo reviewed - EF 55-60%, mild concentric LVH, normal RV systolic fxn, trace AR, trace MR, trace TR, RVSP 28 mmHg, trace NM. Pain appears to be epigastric secondary to underlying GI process. AMI r/o. Cardiac status is stable. Lexiscan stress MPI may be performed as an outpatient if warranted. Of note, upon assessment, pt states he is under the care of a Optical Lab Technician at [facility]. He is unable to recall the name (Lety). LHC noted to be performed @ [facility] by Dr. Montalvo in 2014. Please refer to their service for further cardiac mgmt. Pt seen in conjunction with Dr. Pratt, who agrees with the assessment and plan of care. - Patient Problems (1) Diverticulosis Current Visit: Yes Status: Acute (2) Epigastric pain Current Visit: Yes Status: Acute (3) WENDY (obstructive sleep apnea) Current Visit: Yes Status: Chronic (4) Hypertension Current Visit: No Status: Chronic Qualifiers: Hypertension type: essential hypertension Qualified Code(s): I10 - Essential (primary) hypertension (5) GERD (gastroesophageal reflux disease) Current Visit: Yes Status: Chronic (6) Arthritis Current Visit: Yes Status: Chronic (7) Chronic back pain Current Visit: Yes Status: Chronic (8) Anxiety Current Visit: Yes Status: Suspected
[2020-09-22] MEDS: PRAVASTATIN 40 MG TAB PO SCH (21:29)
[2020-09-23] MEDS: PIPERACIL-TAZO 2.25 GM/50 ML 2.25 GM/50 ML BAG IV SCH ×4 (04:05→23:46)
[2020-09-23] MEDS: D5W/0.45% NACL 1,000 ML IV SCH (06:23)
[2020-09-23 06:37] LABS: Calcium 8.9 mg/dL (8.4-10.2)
--- NOTE | 2020-09-23 08:51 | Progress Note ---
Assessment and Plan 1. Acute kidney injury: Suspect vasomotor CRISTINO superimposed on CKD. UA bland. ATN likely. Renal US negative for hydro. Continue IV fluids. Monitor renal function. Creatinine level improving. Avoid nephrotoxic agents. Meds dosage based on GFR. 2. FEN: Monitor lytes and volume status. 3. Diverticulosis: CT Abd Pelvis revealed diverticulosis with concentric mural thickening co ncerning for developing diverticulitis. On IV Zosyn. Followed by GI. NPO. Supportive care. 4. Acute Chest Pain: R/O ACS. Chest pain protocol. Serial Troponin negative. CXR negative. EKG unrevealing for acute ischemic abnormalities. Cardiology consulted. 5. Elevated D-dimer: VQ scan negative for PE. 6. Anxiety. 7. HTN: Monitor BP. Adjust meds as needed. 8. Tobacco use: Admits to chewing tobacco daily. Counseled for cessation. Subjective: Patient was seen and examined at the bedside. Examination: General appearance: well-developed, appears stated age, well nourished, not in distress HEENT: ALINA, atraumatic Neck: trachea midline Respiratory: ctab Heart: S1S2, regular, no murmur Abdomen: soft, bowel sounds heard, NT Integumentary: no obvious rash Neurologic: AO, able to move extremities Ext: no edema noted Subjective Date of service: 09/23/20 Objective - Vital Signs Vital signs: Vital Signs - 12hr 09/22/20 09/23/20 09/23/20 23:08 00:00 04:24 Temperature 98.0 F 98.0 F Pulse Rate 75 74 65 Respiratory 18 18 Rate Blood Pressure 123/65 102/41 O2 Sat by Pulse 95 94 Oximetry 09/23/20 08:00 Temperature Pulse Rate 67 Respiratory Rate Blood Pressure O2 Sat by Pulse Oximetry - Lab 09/22/20 01:25 09/24/20 04:56 Most recent lab results Calcium 8.9 mg/dL (8.4-10.2) 09/23/20 05:25 Urine Creatinine 192.8 mg/dL (0.1-20.0) H 09/22/20 12:30 Urine Sodium 145 mmol/L 09/22/20 12:30 Medications & Allergies - Medications Allergies/Adverse Reactions: Allergies meperidine [From Demerol] Allergy (Verified 08/22/17 11:31) Itching Home Medications: Home Medications Medication Instructions Recorded Confirmed Last Taken Type Amlodipine Besylate 10 mg PO DAILY 02/23/15 09/23/20 09/01/17 05:15 History Ibuprofen [Motrin 600 MG tab] 600 mg PO TID PRN 04/06/15 09/23/20 08/22/17 History Clopidogrel Bisulfate [Plavix] 75 mg PO DAILY 08/26/17 09/23/20 08/26/17 History Losartan/Hydrochlorothiazide 1 each PO DAILY 08/26/17 09/23/20 09/01/17 05:15 History [Losartan-Hctz 100-25 mg Tab] Pregabalin [Lyrica] 75 mg PO BID 08/26/17 09/23/20 09/01/17 05:15 History Simvastatin (Nf) [Zocor TAB] 20 mg PO QHS 08/26/17 09/23/20 08/31/17 History Neomy/Polymyx B/Hc Opth Susp 1 drop OS Q6HR #1 bottle 09/19/17 09/23/20 Unknown Rx [Cortisporin (OPTH) Susp] Active Medications: Generic Name Dose Route Start Last Admin Trade Name Freq PRN Reason Stop Dose Admin Acetaminophen 650 mg 09/22/20 00:43 Acetaminophen 650 Mg Rect Supp [place] Q4H PRN Pain MILD(1-3)/Fever >100.5/ROY Albuterol 2.5 mg 09/22/20 00:43 Albuterol 2.5 Mg/3 Ml Nebu IH Q4HRT PRN Shortness Of Breath Heparin Sodium (Porcine) 5,000 unit 09/22/20 10:00 09/22/20 21:29 Heparin 5,000 Unit/1 Ml Vial SUB-Q 5,000 unit BID [facility] Administration Hydromorphone HCl 0.5 mg 09/22/20 00:43 09/22/20 01:21 Hydromorphone 1 Mg/1 Ml Inj IV 0.5 mg Q3H PRN Administration Pain , Severe (7-10) Dextrose/Sodium Chloride 1,000 mls @ 75 mls/hr 09/22/20 01:00 09/23/20 06:23 D5/0.45ns IV 75 mls/hr DIRECT [facility] Administration Piperacillin Sod/Tazobactam Sod 2.25 gm in 50 mls @ 100 mls/hr 09/22/20 10:00 09/23/20 04:05 Zosyn/Ns 2.25 Gm/50ml IV 100 mls/hr Q6H [facility] Administration Lorazepam 1 mg 09/22/20 00:51 Lorazepam 2 Mg/Ml Vial IV Q4H PRN Anxiety Morphine Sulfate 2 mg 09/22/20 00:43 Morphine 2 Mg/1 Ml Inj IV Q4H PRN Pain, Moderate (4-6) Nicotine 14 mg 09/22/20 10:00 09/22/20 13:13 Nicotine 14 Mg/24 Hr Patch TD 14 mg QDAY [facility] Administration Nitroglycerin 0.4 mg 09/22/20 00:48 Nitroglycerin 0.4 Mg Tab Subl SL Q5M PRN Chest Pain Ondansetron HCl 4 mg 09/22/20 00:43 Ondansetron 4 Mg/2 Ml Inj IV Q6H PRN Nausea And Vomiting Pantoprazole Sodium 40 mg 09/22/20 10:00 09/22/20 21:28 Pantoprazole 40 Mg Inj IV 40 mg BID AD[facility] Administration Pravastatin Sodium 40 mg 09/22/20 22:00 09/22/20 21:29 Pravastatin 40 Mg Tab PO 40 mg QHS AD[facility] Administration Sodium Chloride 10 ml 09/22/20 10:00 09/22/20 21:29 Sodium Chloride 0.9% 10 Ml Flush Syringe IV 10 ml BID ADAMA Administration Sodium Chloride 10 ml 09/22/20 00:43 Sodium Chloride 0.9% 10 Ml Flush Syringe IV PRN PRN LINE FLUSH
--- NOTE | 2020-09-23 09:03 | Progress Note ---
Assessment and Plan Assessment and plan: 75-year-old -[place] male with history of WENDY, CAD, chronic lumbar pain, hypertension, GERD, arthritis, prostate cancer, questionable history of anxiety who presents [facility] with complaints of shortness of breath, chest pain, abdominal pain, and " anxiety attack". Patient complains of 7/10 sharp abdominal pain which started in the right upper quadrant, now in the epigastric region with radiation to lower abdomen. His abdominal pain started a few weeks ago in the right upper quadrant, it was intermittent, and he thought that he had pulled an abdominal muscle. The pain has since progressed to the epigastric region with radiation to the lower abdomen and is now constant. Pain is relieved with pain meds. Endorses history of GERD not currently on PPI. Additionally patient complains of shortness of breath and chest pain. On examination when patient was asked to point to the area of chest where he felt the pain, patient made note to epigastric area. However he mentioned that approximately 1 to 2 days ago [employer] IN[employer], he had substernal nonradiating 8/10 chest pain. Patient shortness of breath is exacerbated with abdominal and chest pain, and is relieved with rest. Diverticulosis/diverticulitis Chest pain Elevated D-dimer Acute kidney injury Anxiety disorder Hypertension GERD Tobacco abuse 09/22/2020. CT Abd Pelvis reveals diverticulosis with concentric mural thickening concerning for developing diverticulitis. Continue empiric Zosyn. Await GI consultation. Continue chest pain protocol and telemetry monitoring. Troponin negative x2. EKG unrevealing for acute ischemic abnormality. Follow-up echocardiogram. Cardiology consultation pending. VQ scan negative for PE. Patient's creatinine elevated 2.2. Patient with creatinine of 1.28 April 2019. Check renal ultrasound and consult nephrology for further evaluation. 09/23. Continue antibiotics for diverticulitis. Advance diet as tolerated and patient to have colonoscopy after resolution of diverticulitis and off Plavix. Patient will follow up as an outpatient in 3 to 4 weeks. Anticipate discharge in a.m. if creatinine has improved. Follow-up BMP in a.m. History Interval history: No new issues overnight Hospitalist Physical - Constitutional Vitals: Temp Pulse Resp BP Pulse Ox 98.0 F 67 18 102/41 94 09/23/20 04:24 09/23/20 08:00 09/23/20 04:24 09/23/20 04:24 09/23/20 04:24 General appearance: Present: no acute distress - EENT Eyes: Present: PERRL, EOM intact ENT: hearing intact, clear oral mucosa, dentition normal - Neck Neck: Present: supple, normal ROM - Respiratory Respiratory effort: normal Respiratory: bilateral: CTA - Cardiovascular Rhythm: regular Heart Sounds: Present: S1 & S2. Absent: gallop, rub - Extremities Extremities: no ischemia, No edema, Full ROM - Abdominal General gastrointestinal: soft, non-tender, non-distended, normal bowel sounds - Integumentary Integumentary: Present: clear, warm, dry - Neurologic Neurologic: CNII-XII intact, moves all extremities HEART Score - HEART Score EKG: Normal Age: > 65 Risk factors: 1-2 risk factors Troponin: Troponin T < 0.010 ng/mL (0.00-0.029) 09/22/20 01:25 Troponin: < normal limit - Critical Actions Critical Actions: 0-3 pts:0.9-1.7%risk of adverse cardiac event.Candidate for discharge Results - Labs CBC & Chem 7: 09/22/20 01:25 09/23/20 05:25 Labs: Laboratory Last Values WBC 6.1 K/mm3 (4.5-11.0) 09/22/20 01:25 RBC 5.66 M/mm3 (3.65-5.03) H 09/22/20 01:25 Hgb 15.0 gm/dl (11.8-15.2) 09/22/20 01:25 Hct 45.4 % (35.5-45.6) 09/22/20 01:25 MCV 80 fl (84-94) L 09/22/20 01:25 MCH 27 pg (28-32) L 09/22/20 01:25 MCHC 33 % (32-34) 09/22/20 01:25 RDW 14.7 % (13.2-15.2) 09/22/20 01:25 Plt Count 379 K/mm3 (140-440) 09/22/20 01:25 Lymph % (Auto) 33.9 % (13.4-35.0) 09/22/20 01:25 [place] % (Auto) 8.4 % (0.0-7.3) H 09/22/20 01:25 Eos % (Auto) 1.1 % (0.0-4.3) 09/22/20 01:25 Baso % (Auto) 0.8 % (0.0-1.8) 09/22/20 01:25 Lymph # (Auto) 2.1 K/mm3 (1.2-5.4) 09/22/20 01:25 [place] # (Auto) 0.5 K/mm3 (0.0-0.8) 09/22/20 01:25 Eos # (Auto) 0.1 K/mm3 (0.0-0.4) 09/22/20 01:25 Baso # (Auto) 0.1 K/mm3 (0.0-0.1) 09/22/20 01:25 Seg Neutrophils % 55.3 % (40.0-70.0) 09/22/20 01:25 Seg Neutrophils # 3.5 K/mm3 (1.8-7.7) 09/22/20 01:25 D-Dimer 371.86 ng/mlDDU (0-234) H 09/21/20 18:07 Sodium 135 mmol/L (137-145) L 09/23/20 05:25 Potassium 3.8 mmol/L (3.6-5.0) 09/23/20 05:25 Chloride 101.7 mmol/L (98-107) 09/23/20 05:25 Carbon Dioxide 23 mmol/L (22-30) 09/23/20 05:25 Anion Gap 14 mmol/L 09/23/20 05:25 BUN 22 mg/dL (9-20) H 09/23/20 05:25 Creatinine 2.1 mg/dL (0.8-1.3) H 09/23/20 05:25 Estimated GFR 37 ml/min 09/23/20 05:25 BUN/Creatinine Ratio 10 % 09/23/20 05:25 Glucose 119 mg/dL (75-100) H 09/23/20 05:25 Hemoglobin A1c 5.8 % (4-6) 09/22/20 01:25 Calcium 8.9 mg/dL (8.4-10.2) 09/23/20 05:25 Total Bilirubin 0.80 mg/dL (0.1-1.2) 09/21/20 11:17 AST 16 units/L (5-40) 09/21/20 11:17 ALT 17 units/L (7-56) 09/21/20 11:17 Alkaline Phosphatase 68 units/L (35-129) 09/21/20 11:17 Troponin T < 0.010 ng/mL (0.00-0.029) 09/22/20 01:25 NT-Pro-B Natriuret Pep 31.43 pg/mL (0-900) 09/21/20 11:17 Total Protein 8.0 g/dL (6.3-8.2) 09/21/20 11:17 Albumin 4.2 g/dL (3.9-5) 09/21/20 11:17 Albumin/Globulin Ratio 1.1 % 09/21/20 11:17 Lipase 48 units/L (13-60) 09/21/20 18:10 Urine Color Yellow (Yellow) 09/21/20 15:52 Urine Turbidity Clear (Clear) 09/21/20 15:52 Urine pH 5.0 (5.0-7.0) 09/21/20 15:52 Ur Specific [place] 1.017 (1.003-1.030) 09/21/20 15:52 Urine Protein <15 mg/dl mg/dL (Negative) 09/21/20 15:52 Urine Glucose (UA) Neg mg/dL (Negative) 09/21/20 15:52 Urine Ketones Neg mg/dL (Negative) 09/21/20 15:52 Urine Blood Neg (Negative) 09/21/20 15:52 Urine Nitrite Neg (Negative) 09/21/20 15:52 Urine Bilirubin Neg (Negative) 09/21/20 15:52 Urine Urobilinogen < 2.0 mg/dL (<2.0) 09/21/20 15:52 Ur Leukocyte Esterase Neg (Negative) 09/21/20 15:52 Urine WBC (Auto) 1.0 /HPF (0.0-6.0) 09/21/20 15:52 Urine RBC (Auto) 1.0 /HPF (0.0-6.0) 09/21/20 15:52 U Epithel Cells (Auto) < 1.0 /HPF (0-13.0) 09/21/20 15:52 Urine Mucus Few /HPF 09/21/20 15:52 Urine Creatinine 192.8 mg/dL (0.1-20.0) H 09/22/20 12:30 Urine Sodium 145 mmol/L 09/22/20 12:30 Mack/IV: Voiding Method Urinal Active Medications - Current Medications Current Medications: Generic Name Dose Route Start Last Admin Trade Name Freq PRN Reason Stop Dose Admin Acetaminophen 650 mg 09/22/20 00:43 Acetaminophen 650 Mg Rect Supp [place] Q4H PRN Pain MILD(1-3)/Fever >100.5/ROY Albuterol 2.5 mg 09/22/20 00:43 Albuterol 2.5 Mg/3 Ml Nebu IH Q4HRT PRN Shortness Of Breath Heparin Sodium (Porcine) 5,000 unit 09/22/20 10:00 09/22/20 21:29 Heparin 5,000 Unit/1 Ml Vial SUB-Q 5,000 unit BID ADAMA Administration Hydromorphone HCl 0.5 mg 09/22/20 00:43 09/22/20 01:21 Hydromorphone 1 Mg/1 Ml Inj IV 0.5 mg Q3H PRN Administration Pain , Severe (7-10) Dextrose/Sodium Chloride 1,000 mls @ 75 mls/hr 09/22/20 01:00 09/23/20 06:23 D5/0.45ns IV 75 mls/hr DIRECT ADAMA Administration Piperacillin Sod/Tazobactam Sod 2.25 gm in 50 mls @ 100 mls/hr 09/22/20 10:00 09/23/20 04:05 Zosyn/Ns 2.25 Gm/50ml IV 100 mls/hr Q6H ADAMA Administration Lorazepam 1 mg 09/22/20 00:51 Lorazepam 2 Mg/Ml Vial IV Q4H PRN Anxiety Morphine Sulfate 2 mg 09/22/20 00:43 Morphine 2 Mg/1 Ml Inj IV Q4H PRN Pain, Moderate (4-6) Nicotine 14 mg 09/22/20 10:00 09/22/20 13:13 Nicotine 14 Mg/24 Hr Patch TD 14 mg QDAY ADAMA Administration Nitroglycerin 0.4 mg 09/22/20 00:48 Nitroglycerin 0.4 Mg Tab Subl SL Q5M PRN Chest Pain Ondansetron HCl 4 mg 09/22/20 00:43 Ondansetron 4 Mg/2 Ml Inj IV Q6H PRN Nausea And Vomiting Pantoprazole Sodium 40 mg 09/22/20 10:00 09/22/20 21:28 Pantoprazole 40 Mg Inj IV 40 mg BID ADAMA Administration Pravastatin Sodium 40 mg 09/22/20 22:00 09/22/20 21:29 Pravastatin 40 Mg Tab PO 40 mg QHS ADAMA Administration Sodium Chloride 10 ml 09/22/20 10:00 09/22/20 21:29 Sodium Chloride 0.9% 10 Ml Flush Syringe IV 10 ml BID ADAMA Administration Sodium Chloride 10 ml 09/22/20 00:43 Sodium Chloride 0.9% 10 Ml Flush Syringe IV PRN PRN LINE FLUSH Nutrition/Malnutrition Assess - Dietary Evaluation Nutrition/Malnutrition Findings: Nutrition Notes Start: 09/22/20 10:37 Freq: Status: Active Protocol: Document 09/22/20 10:37 (Rec: 09/22/20 10:44 [email or web address]) Nutrition Notes 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 Pt reports eating less since procedure done 1 year ago. He states wt loss in past month but unsure why. Pt not eating well for 2 days [employer]. Burn Absent Trauma Absent GI Symptoms Other Current % PO Negligible Minimum of two criteria Yes Interpretation of Weight Loss (severe) >5% in 1 month Muscle Mass Mild Depletion (non-severe) #1 Nutrition Diagnosis Malnutrition Etiology advanced age As Evidenced by Signs and Symptoms 7% wt loss in one month, muscle wasting Is patient on ventilator? No Is Patient Ambulatory and/or Out of Bed No REE-([facility]-confined to bed) 1840.680 Kcal/Kg value to use for calculation 18 Approximate Energy Requirements Using 1532 kcal/Kg Calculation Used for Recommendations Kcal/kg Additional Notes Protein: (1.2-1.5 g/kg AdjBW 75kg) 90-113g Fluid: 1 ml/kcal or per MD Nutrition Intervention Change Diet Order: Advance as able Goal #1 Diet advancement Anticipated Discharge Needs: Cardiac with ONS PRN Follow-Up By: 09/25/20 Additional Comments FU for diet advancement and intakes
[2020-09-23] MEDS: HEPARIN 5,000 UNIT/1 ML VIAL SUB-Q SCH ×2 (09:22→21:21)
[2020-09-23] MEDS: NICOTINE 14 MG/24 HR PATCH TD SCH (09:22)
[2020-09-23] MEDS: PANTOPRAZOLE 40 MG INJ IV SCH (09:22)
[2020-09-23] MEDS: PANTOPRAZOLE 40 MG TAB PO SCH (18:58)
[2020-09-23] MEDS: PRAVASTATIN 40 MG TAB PO SCH (21:21)
[2020-09-24] MEDS: D5W/0.45% NACL 1,000 ML IV SCH ×2 (04:12→21:44)
[2020-09-24] MEDS: PIPERACIL-TAZO 2.25 GM/50 ML 2.25 GM/50 ML BAG IV SCH ×4 (04:14→21:44)
[2020-09-24 05:50] LABS: Calcium 8.4 mg/dL (8.4-10.2)
--- NOTE | 2020-09-24 08:30 | Progress Note ---
Assessment and Plan Assessment and plan: 75-year-old -[place] male with history of WENDY, CAD, chronic lumbar pain, hypertension, GERD, arthritis, prostate cancer, questionable history of anxiety who presents [facility] ED with complaints of shortness of breath, chest pain, abdominal pain, and " anxiety attack". Patient complains of 7/10 sharp abdominal pain which started in the right upper quadrant, now in the epigastric region with radiation to lower abdomen. His abdominal pain started a few weeks ago in the right upper quadrant, it was intermittent, and he thought that he had pulled an abdominal muscle. The pain has since progressed to the epigastric region with radiation to the lower abdomen and is now constant. Pain is relieved with pain meds. Endorses history of GERD not currently on PPI. Additionally patient complains of shortness of breath and chest pain. On examination when patient was asked to point to the area of chest where he felt the pain, patient made note to epigastric area. 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 Patient shortness of breath is exacerbated with abdominal and chest pain, and is relieved with rest. Diverticulosis/diverticulitis Chest pain Elevated D-dimer Acute kidney injury Anxiety disorder Hypertension GERD Tobacco abuse 09/22/2020. CT Abd Pelvis reveals diverticulosis with concentric mural thickening concerning for developing diverticulitis. Continue empiric Zosyn. Await GI consultation. Continue chest pain protocol and telemetry monitoring. Troponin negative x2. EKG unrevealing for acute ischemic abnormality. Follow-up echocardiogram. Cardiology consultation pending. VQ scan negative for PE. Patient's creatinine elevated 2.2. Patient with creatinine of 1.28 April 2019. Check renal ultrasound and consult nephrology for further evaluation. 09/23. Continue antibiotics for diverticulitis. Advance diet as tolerated and patient to have colonoscopy after resolution of diverticulitis and off Plavix. Patient will follow up as an outpatient in 3 to 4 weeks. Anticipate discharge in a.m. if creatinine has improved. Follow-up BMP in a.m. 09/24. Patient is able to tolerate diet. GI at to perform colonoscopy after resolution of diverticulitis and off Plavix as an outpatient. Creatinine appears to be stable and patient likely with CKD. Await cardiology evaluation of chest pain. Anticipate discharge if okay with cardiology. Elevated D-dimer was evaluated with VQ scan which was found to be negative. History Interval history: No new issues overnight Hospitalist Physical - Constitutional Vitals: Temp Pulse Resp BP Pulse Ox 98.3 F 59 L 17 127/61 98 09/24/20 03:38 09/24/20 03:38 09/24/20 03:38 09/24/20 03:38 09/24/20 03:38 General appearance: Present: no acute distress - EENT Eyes: Present: PERRL, EOM intact ENT: hearing intact, clear oral mucosa, dentition normal - Neck Neck: Present: supple, normal ROM - Respiratory Respiratory effort: normal Respiratory: bilateral: CTA - Cardiovascular Rhythm: regular Heart Sounds: Present: S1 & S2. Absent: gallop, rub - Extremities Extremities: no ischemia, No edema, Full ROM - Abdominal General gastrointestinal: soft, non-tender, non-distended, normal bowel sounds - Integumentary Integumentary: Present: clear, warm, dry - Neurologic Neurologic: CNII-XII intact, moves all extremities HEART Score - HEART Score EKG: Normal Age: > 65 Risk factors: 1-2 risk factors Troponin: Troponin T < 0.010 ng/mL (0.00-0.029) 09/22/20 01:25 Troponin: < normal limit - Critical Actions Critical Actions: 0-3 pts:0.9-1.7%risk of adverse cardiac event.Candidate for discharge Results - Labs CBC & Chem 7: 09/22/20 01:25 09/24/20 04:56 Labs: Laboratory Last Values WBC 6.1 K/mm3 (4.5-11.0) 09/22/20 01:25 RBC 5.66 M/mm3 (3.65-5.03) H 09/22/20 01:25 Hgb 15.0 gm/dl (11.8-15.2) 09/22/20 01:25 Hct 45.4 % (35.5-45.6) 09/22/20 01:25 MCV 80 fl (84-94) L 09/22/20 01:25 MCH 27 pg (28-32) L 09/22/20 01:25 MCHC 33 % (32-34) 09/22/20 01:25 RDW 14.7 % (13.2-15.2) 09/22/20 01:25 Plt Count 379 K/mm3 (140-440) 09/22/20 01:25 Lymph % (Auto) 33.9 % (13.4-35.0) 09/22/20 01:25 [place] % (Auto) 8.4 % (0.0-7.3) H 09/22/20 01:25 Eos % (Auto) 1.1 % (0.0-4.3) 09/22/20 01:25 Baso % (Auto) 0.8 % (0.0-1.8) 09/22/20 01:25 Lymph # (Auto) 2.1 K/mm3 (1.2-5.4) 09/22/20 01:25 Guthrie # (Auto) 0.5 K/mm3 (0.0-0.8) 09/22/20 01:25 Eos # (Auto) 0.1 K/mm3 (0.0-0.4) 09/22/20 01:25 Baso # (Auto) 0.1 K/mm3 (0.0-0.1) 09/22/20 01:25 Seg Neutrophils % 55.3 % (40.0-70.0) 09/22/20 01:25 Seg Neutrophils # 3.5 K/mm3 (1.8-7.7) 09/22/20 01:25 D-Dimer 371.86 ng/mlDDU (0-234) H 09/21/20 18:07 Sodium 137 mmol/L (137-145) 09/24/20 04:56 Potassium 4.0 mmol/L (3.6-5.0) 09/24/20 04:56 Chloride 103.9 mmol/L (98-107) 09/24/20 04:56 Carbon Dioxide 24 mmol/L (22-30) 09/24/20 04:56 Anion Gap 13 mmol/L 09/24/20 04:56 BUN 16 mg/dL (9-20) 09/24/20 04:56 Creatinine 2.0 mg/dL (0.8-1.3) H 09/24/20 04:56 Estimated GFR 40 ml/min 09/24/20 04:56 BUN/Creatinine Ratio 8 % 09/24/20 04:56 Glucose 98 mg/dL (75-100) 09/24/20 04:56 Hemoglobin A1c 5.8 % (4-6) 09/22/20 01:25 Calcium 8.4 mg/dL (8.4-10.2) 09/24/20 04:56 Total Bilirubin 0.80 mg/dL (0.1-1.2) 09/21/20 11:17 AST 16 units/L (5-40) 09/21/20 11:17 ALT 17 units/L (7-56) 09/21/20 11:17 Alkaline Phosphatase 68 units/L (35-129) 09/21/20 11:17 Troponin T < 0.010 ng/mL (0.00-0.029) 09/22/20 01:25 NT-Pro-B Natriuret Pep 31.43 pg/mL (0-900) 09/21/20 11:17 Total Protein 8.0 g/dL (6.3-8.2) 09/21/20 11:17 Albumin 4.2 g/dL (3.9-5) 09/21/20 11:17 Albumin/Globulin Ratio 1.1 % 09/21/20 11:17 Lipase 48 units/L (13-60) 09/21/20 18:10 PTH Intact 87.69 pg/mL (15-65) H 09/24/20 04:56 Urine Color Yellow (Yellow) 09/21/20 15:52 Urine Turbidity Clear (Clear) 09/21/20 15:52 Urine pH 5.0 (5.0-7.0) 09/21/20 15:52 Ur Specific [place] 1.017 (1.003-1.030) 09/21/20 15:52 Urine Protein <15 mg/dl mg/dL (Negative) 09/21/20 15:52 Urine Glucose (UA) Neg mg/dL (Negative) 09/21/20 15:52 Urine Ketones Neg mg/dL (Negative) 09/21/20 15:52 Urine Blood Neg (Negative) 09/21/20 15:52 Urine Nitrite Neg (Negative) 09/21/20 15:52 Urine Bilirubin Neg (Negative) 09/21/20 15:52 Urine Urobilinogen < 2.0 mg/dL (<2.0) 09/21/20 15:52 Ur Leukocyte Esterase Neg (Negative) 09/21/20 15:52 Urine WBC (Auto) 1.0 /HPF (0.0-6.0) 09/21/20 15:52 Urine RBC (Auto) 1.0 /HPF (0.0-6.0) 09/21/20 15:52 U Epithel Cells (Auto) < 1.0 /HPF (0-13.0) 09/21/20 15:52 Urine Mucus Few /HPF 09/21/20 15:52 Urine Creatinine 192.8 mg/dL (0.1-20.0) H 09/22/20 12:30 Urine Sodium 145 mmol/L 09/22/20 12:30 Mack/IV: Voiding Method Urinal Active Medications - Current Medications Current Medications: Generic Name Dose Route Start Last Admin Trade Name Freq PRN Reason Stop Dose Admin Acetaminophen 650 mg 09/22/20 00:43 Acetaminophen 650 Mg Rect Supp MT Q4H PRN Pain MILD(1-3)/Fever >100.5/ROY Albuterol 2.5 mg 09/22/20 00:43 Albuterol 2.5 Mg/3 Ml Nebu IH Q4HRT PRN Shortness Of Breath Heparin Sodium (Porcine) 5,000 unit 09/22/20 10:00 09/23/20 21:21 Heparin 5,000 Unit/1 Ml Vial SUB-Q 5,000 unit BID ADAMA Administration Hydromorphone HCl 0.5 mg 09/22/20 00:43 09/22/20 01:21 Hydromorphone 1 Mg/1 Ml Inj IV 0.5 mg Q3H PRN Administration Pain , Severe (7-10) Dextrose/Sodium Chloride 1,000 mls @ 75 mls/hr 09/22/20 01:00 09/24/20 04:12 D5/0.45ns IV 75 mls/hr DIRECT ADAMA Administration Piperacillin Sod/Tazobactam Sod 2.25 gm in 50 mls @ 100 mls/hr 09/22/20 10:00 09/24/20 04:14 Zosyn/Ns 2.25 Gm/50ml IV 100 mls/hr Q6H ADAMA Administration Lorazepam 1 mg 09/22/20 00:51 Lorazepam 2 Mg/Ml Vial IV Q4H PRN Anxiety Morphine Sulfate 2 mg 09/22/20 00:43 Morphine 2 Mg/1 Ml Inj IV Q4H PRN Pain, Moderate (4-6) Nicotine 14 mg 09/22/20 10:00 09/23/20 09:22 Nicotine 14 Mg/24 Hr Patch TD 14 mg QDAY ADAMA Administration Nitroglycerin 0.4 mg 09/22/20 00:48 Nitroglycerin 0.4 Mg Tab Subl SL Q5M PRN Chest Pain Ondansetron HCl 4 mg 09/22/20 00:43 Ondansetron 4 Mg/2 Ml Inj IV Q6H PRN Nausea And Vomiting Pantoprazole Sodium 40 mg 09/23/20 16:30 09/23/20 18:58 Pantoprazole 40 Mg Tab PO 40 mg BIDAC ADAMA Administration Pravastatin Sodium 40 mg 09/22/20 22:00 09/23/20 21:21 Pravastatin 40 Mg Tab PO 40 mg QHS ADAMA Administration Sodium Chloride 10 ml 09/22/20 10:00 09/23/20 21:20 Sodium Chloride 0.9% 10 Ml Flush Syringe IV 10 ml BID ADAMA Administration Sodium Chloride 10 ml 09/22/20 00:43 Sodium Chloride 0.9% 10 Ml Flush Syringe IV PRN PRN LINE FLUSH Nutrition/Malnutrition Assess - Dietary Evaluation Nutrition/Malnutrition Findings: Nutrition Notes Start: 09/22/20 10:37 Freq: Status: Active Protocol: Document 09/22/20 10:37 (Rec: 09/22/20 10:44 [id number]) Nutrition Notes 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 Pt reports eating less since procedure done 1 year ago. He states wt loss in past month but unsure why. 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 No Is Patient Ambulatory and/or Out of Bed No REE-([facility]-confined to bed) 1840.680 Kcal/Kg value to use for calculation 18 Approximate Energy Requirements Using 1532 kcal/Kg Calculation Used for Recommendations Kcal/kg Additional Notes Protein: (1.2-1.5 g/kg AdjBW 75kg) 90-113g Fluid: 1 ml/kcal or per MD Nutrition Intervention Change Diet Order: Advance as able Goal #1 Diet advancement Anticipated Discharge Needs: Cardiac with ONS PRN Follow-Up By: 09/25/20 Additional Comments FU for diet advancement and intakes
--- NOTE | 2020-09-24 09:25 | Consultation ---
History of Present Illness Consult date: 09/24/20 Consult reason: chest pain History of present illness: 75-year-old -[place] male presenting with shortness of breath chest pain. Cardiac consult requested for evaluation of shortness of breath and chest pain. However at the time of my evaluation patient is stable denies any chest pain or shortness of breath. Past History Past Medical History: CAD, cancer (prostate), GERD, hypertension, other (WENDY, anxiety) Past Surgical History: Other (prostatectomy - 2018). denies: valve replacement, CABG, PTCA Social history: other (chewing tobacco). denies: smoking, alcohol abuse Family history: hypertension Medications and Allergies Allergies Allergy/AdvReac Type Severity Reaction Status Date / Time meperidine [From Demerol] Allergy Itching Verified 08/22/17 11:31 Home Medications Medication Instructions Recorded Confirmed Last Taken Type Amlodipine Besylate 10 mg PO DAILY 02/23/15 09/23/20 09/01/17 05:15 History Ibuprofen [Motrin 600 MG tab] 600 mg PO TID PRN 04/06/15 09/23/20 08/22/17 History Clopidogrel Bisulfate [Plavix] 75 mg PO DAILY 08/26/17 09/23/20 08/26/17 History Losartan/Hydrochlorothiazide 1 each PO DAILY 08/26/17 09/23/20 09/01/17 05:15 History [Losartan-Hctz 100-25 mg Tab] Pregabalin [Lyrica] 75 mg PO BID 08/26/17 09/23/20 09/01/17 05:15 History Simvastatin (Nf) [Zocor TAB] 20 mg PO QHS 08/26/17 09/23/20 08/31/17 History Neomy/Polymyx B/Hc Opth Susp 1 drop OS Q6HR #1 bottle 09/19/17 09/23/20 Unknown Rx [Cortisporin (OPTH) Susp] Active Meds: Active Medications Acetaminophen (Acetaminophen 650 Mg Rect Supp) 650 mg CO Q4H PRN PRN Reason: Pain MILD(1-3)/Fever >100.5/ROY Albuterol (Albuterol 2.5 Mg/3 Ml Nebu) 2.5 mg IH Q4HRT PRN PRN Reason: Shortness Of Breath Heparin Sodium (Porcine) (Heparin 5,000 Unit/1 Ml Vial) 5,000 unit SUB-Q BID [facility] Last Admin: 09/23/20 21:21 Dose: 5,000 unit Documented by: Hydromorphone HCl (Hydromorphone 1 Mg/1 Ml Inj) 0.5 mg IV Q3H PRN PRN Reason: Pain , Severe (7-10) Last Admin: 09/22/20 01:21 Dose: 0.5 mg Documented by: Dextrose/Sodium Chloride (D5/0.45ns) 1,000 mls @ 75 mls/hr IV DIRECT [facility] Last Admin: 09/24/20 04:12 Dose: 75 mls/hr Documented by: Piperacillin Sod/Tazobactam Sod (Zosyn/Ns 2.25 Gm/50ml) 2.25 gm in 50 mls @ 100 mls/hr IV Q6H [facility] Stop: 09/25/20 22:29 Last Admin: 09/24/20 04:14 Dose: 100 mls/hr Documented by: Lorazepam (Lorazepam 2 Mg/Ml Vial) 1 mg IV Q4H PRN PRN Reason: Anxiety Morphine Sulfate (Morphine 2 Mg/1 Ml Inj) 2 mg IV Q4H PRN PRN Reason: Pain, Moderate (4-6) Nicotine (Nicotine 14 Mg/24 Hr Patch) 14 mg TD QDAY [facility] Last Admin: 09/23/20 09:22 Dose: 14 mg Documented by: Nitroglycerin (Nitroglycerin 0.4 Mg Tab Subl) 0.4 mg SL Q5M PRN PRN Reason: Chest Pain Ondansetron HCl (Ondansetron 4 Mg/2 Ml Inj) 4 mg IV Q6H PRN PRN Reason: Nausea And Vomiting Pantoprazole Sodium (Pantoprazole 40 Mg Tab) 40 mg PO BIDAC [facility] Last Admin: 09/23/20 18:58 Dose: 40 mg Documented by: Pravastatin Sodium (Pravastatin 40 Mg Tab) 40 mg PO QHS [facility] Last Admin: 09/23/20 21:21 Dose: 40 mg Documented by: Sodium Chloride (Sodium Chloride 0.9% 10 Ml Flush Syringe) 10 ml IV BID [facility] Last Admin: 09/23/20 21:20 Dose: 10 ml Documented by: Sodium Chloride (Sodium Chloride 0.9% 10 Ml Flush Syringe) 10 ml IV PRN PRN PRN Reason: LINE FLUSH Review of Systems Constitutional: no weight loss, no weight gain, no anorexia, no fatigue, no weakness Ears, nose, mouth and throat: no deferred, no ear pain, no tinnitis, no epistaxis Cardiovascular: chest pain, shortness of breath, dyspnea on exertion, no orthopnea, no palpitations, no edema, no syncope Respiratory: shortness of breath, dyspnea on exertion, no cough, no wheezing Gastrointestinal: no abdominal pain, no nausea, no vomiting, no diarrhea, no constipation, no melena, no hematochezia Genitourinary Male: no dysuria, no hematuria, no flank pain, no discharge, no urinary frequency, no urinary hesitancy Rectal: no pain, no incontinence, no bleeding Musculoskeletal: no neck stiffness, no neck pain, no low back pain, no shooting leg pain Integumentary: no rash, no pruritis, no redness, no sores, no wounds Endocrine: no cold intolerance, no heat intolerance, no polyphagia, no excessive thirst, no polydipsia, no polyuria Hematologic/Lymphatic: no easy bruising, no easy bleeding Allergic/Immunologic: no urticaria, no allergic rhinitis, no wheezing Physical Examination Vital Signs Temp Pulse Resp BP Pulse Ox 98.1 F 69 22 124/62 100 09/21/20 11:17 09/21/20 11:17 09/21/20 11:17 09/21/20 11:17 09/21/20 11:17 General appearance: no acute distress, well-nourished HEENT: Positive: PERRL, Mucus Membranes Moist Neck: Positive: neck supple, trachea midline Cardiac: Positive: Reg Rate and Rhythm, S1/S2. Negative: Audible Murmur Lungs: Positive: clear to auscultation, Normal Breath Sounds Neuro: Positive: Grossly Intact Abdomen: Positive: Soft, Active Bowel Sounds. Negative: Tender, Distended Male genitourinary: Positive: normal Skin: Positive: Clear Incision: Cardiac Cath Site Musculoskeletal: No Pain, Normal Range of Motion Extremities: Present: normal. Absent: edema Results 09/22/20 01:25 09/24/20 04:56 Comprehensive Metabolic Panel 09/24/20 Range/Units 04:56 Sodium 137 (137-145) mmol/L Potassium 4.0 (3.6-5.0) mmol/L Chloride 103.9 (98-107) mmol/L Carbon Dioxide 24 (22-30) mmol/L BUN 16 (9-20) mg/dL Creatinine 2.0 H (0.8-1.3) mg/dL Glucose 98 (75-100) mg/dL Calcium 8.4 (8.4-10.2) mg/dL EKG interpretations - Telemetry EKG Rhythm: Sinus Rhythm Assessment and Plan 1. Abdominal pain 2. History of coronary artery disease 3. Essential hypertension 4. GERD 5. History of prostate CA 6. Chronic kidney disease stage III Chest x-ray shows no acute cardiopulmonary process. Echocardiogram shows mild concentric LVH with mild left ventricular diastolic dysfunction left ventricular ejection fraction of 55 to 60% VQ scan is normal and serum troponin levels are normal. Plan. Cardiac ogden stable elective stress MPI before discharge
[2020-09-24] MEDS: HEPARIN 5,000 UNIT/1 ML VIAL SUB-Q SCH ×2 (09:36→21:44)
[2020-09-24] MEDS: NICOTINE 14 MG/24 HR PATCH TD SCH (09:36)
[2020-09-24] MEDS: PANTOPRAZOLE 40 MG TAB PO SCH ×2 (09:36→16:48)
--- NOTE | 2020-09-24 10:29 | Progress Note ---
Assessment and Plan 1. Acute kidney injury: Suspect vasomotor CRISTINO superimposed on CKD. UA bland. ATN likely. Renal US negative for hydro. Continue IV fluids. Monitor renal function. Creatinine level improving. Avoid nephrotoxic agents. Meds dosage based on GFR. 2. FEN: Monitor lytes and volume status. 3. Diverticulosis: CT Abd Pelvis revealed diverticulosis with concentric mural thickening co ncerning for developing diverticulitis. On IV Zosyn. Followed by GI. Supportive care. 4. Acute Chest Pain: R/O ACS. Chest pain protocol. Serial Troponin negative. CXR negative. EKG unrevealing for acute ischemic abnormalities. Seen by Cardiology. 5. Elevated D-dimer: VQ scan negative for PE. 6. Anxiety. 7. HTN: Monitor BP. Adjust meds as needed. 8. Tobacco use: Admits to chewing tobacco daily. Counseled for cessation. Subjective: Patient was seen and examined at the bedside. Doing ok. Examination: General appearance: well-developed, appears stated age, well nourished, not in distress HEENT: ALINA, atraumatic Neck: trachea midline Respiratory: ctab Heart: S1S2, regular, no murmur Abdomen: soft, bowel sounds heard, NT Integumentary: no obvious rash Neurologic: AO, able to move extremities Ext: no edema noted Subjective Date of service: 09/24/20 Objective - Vital Signs Vital signs: Vital Signs - 12hr 09/23/20 09/24/20 09/24/20 23:16 03:38 08:09 Temperature 97.7 F 98.3 F 98.0 F Pulse Rate 69 59 L 59 L Respiratory 16 17 16 Rate Blood Pressure 108/60 127/61 116/62 O2 Sat by Pulse 95 98 98 Oximetry - Lab 09/22/20 01:25 09/25/20 04:42 Most recent lab results Calcium 8.4 mg/dL (8.4-10.2) 09/24/20 04:56 Urine Creatinine 192.8 mg/dL (0.1-20.0) H 09/22/20 12:30 Urine Sodium 145 mmol/L 09/22/20 12:30 Medications & Allergies - Medications Allergies/Adverse Reactions: Allergies meperidine [From Demerol] Allergy (Verified 08/22/17 11:31) Itching Home Medications: Home Medications Medication Instructions Recorded Confirmed Last Taken Type Amlodipine Besylate 10 mg PO DAILY 02/23/15 09/23/20 09/01/17 05:15 History Ibuprofen [Motrin 600 MG tab] 600 mg PO TID PRN 04/06/15 09/23/20 08/22/17 History Clopidogrel Bisulfate [Plavix] 75 mg PO DAILY 08/26/17 09/23/20 08/26/17 History Losartan/Hydrochlorothiazide 1 each PO DAILY 08/26/17 09/23/20 09/01/17 05:15 History [Losartan-Hctz 100-25 mg Tab] Pregabalin [Lyrica] 75 mg PO BID 08/26/17 09/23/20 09/01/17 05:15 History Simvastatin (Nf) [Zocor TAB] 20 mg PO QHS 08/26/17 09/23/20 08/31/17 History Neomy/Polymyx B/Hc Opth Susp 1 drop OS Q6HR #1 bottle 09/19/17 09/23/20 Unknown Rx [Cortisporin (OPTH) Susp] Active Medications: Generic Name Dose Route Start Last Admin Trade Name Freq PRN Reason Stop Dose Admin Acetaminophen 650 mg 09/22/20 00:43 Acetaminophen 650 Mg Rect Supp [place] Q4H PRN Pain MILD(1-3)/Fever >100.5/ROY Albuterol 2.5 mg 09/22/20 00:43 Albuterol 2.5 Mg/3 Ml Nebu IH Q4HRT PRN Shortness Of Breath Heparin Sodium (Porcine) 5,000 unit 09/22/20 10:00 09/24/20 09:36 Heparin 5,000 Unit/1 Ml Vial SUB-Q 5,000 unit BID ADAMA Administration Hydromorphone HCl 0.5 mg 09/22/20 00:43 09/22/20 01:21 Hydromorphone 1 Mg/1 Ml Inj IV 0.5 mg Q3H PRN Administration Pain , Severe (7-10) Dextrose/Sodium Chloride 1,000 mls @ 75 mls/hr 09/22/20 01:00 09/24/20 04:12 D5/0.45ns IV 75 mls/hr DIRECT ADAMA Administration Piperacillin Sod/Tazobactam Sod 2.25 gm in 50 mls @ 100 mls/hr 09/22/20 10:00 09/24/20 09:36 Zosyn/Ns 2.25 Gm/50ml IV 09/25/20 22:29 100 mls/hr Q6H ADAMA Administration Lorazepam 1 mg 09/22/20 00:51 Lorazepam 2 Mg/Ml Vial IV Q4H PRN Anxiety Morphine Sulfate 2 mg 09/22/20 00:43 Morphine 2 Mg/1 Ml Inj IV Q4H PRN Pain, Moderate (4-6) Nicotine 14 mg 09/22/20 10:00 09/24/20 09:36 Nicotine 14 Mg/24 Hr Patch TD 14 mg QDAY ADAMA Administration Nitroglycerin 0.4 mg 09/22/20 00:48 Nitroglycerin 0.4 Mg Tab Subl SL Q5M PRN Chest Pain Ondansetron HCl 4 mg 09/22/20 00:43 Ondansetron 4 Mg/2 Ml Inj IV Q6H PRN Nausea And Vomiting Pantoprazole Sodium 40 mg 09/23/20 16:30 09/24/20 09:36 Pantoprazole 40 Mg Tab PO 40 mg BIDAC ADAMA Administration Pravastatin Sodium 40 mg 09/22/20 22:00 09/23/20 21:21 Pravastatin 40 Mg Tab PO 40 mg QHS ADAMA Administration Sodium Chloride 10 ml 09/22/20 10:00 09/24/20 09:37 Sodium Chloride 0.9% 10 Ml Flush Syringe IV 10 ml BID ADAMA Administration Sodium Chloride 10 ml 09/22/20 00:43 Sodium Chloride 0.9% 10 Ml Flush Syringe IV PRN PRN LINE FLUSH
[2020-09-24] MEDS: PRAVASTATIN 40 MG TAB PO SCH (21:44)
[2020-09-25] MEDS: PIPERACIL-TAZO 2.25 GM/50 ML 2.25 GM/50 ML BAG IV SCH ×3 (04:06→15:15)
--- NOTE | 2020-09-25 08:25 | Progress Note ---
Assessment and Plan Assessment and plan: 75-year-old -Wallisian male with history of WENDY, CAD, chronic lumbar pain, hypertension, GERD, arthritis, prostate cancer, questionable history of anxiety who presents [facility] ED with complaints of shortness of breath, chest pain, abdominal pain, and " anxiety attack". Patient complains of 7/10 sharp abdominal pain which started in the right upper quadrant, now in the epigastric region with radiation to lower abdomen. His abdominal pain started a few weeks ago in the right upper quadrant, it was intermittent, and he thought that he had pulled an abdominal muscle. The pain has since progressed to the epigastric region with radiation to the lower abdomen and is now constant. Pain is relieved with pain meds. Endorses history of GERD not currently on PPI. Additionally patient complains of shortness of breath and chest pain. On examination when patient was asked to point to the area of chest where he felt the pain, patient made note to epigastric area. 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 Patient shortness of breath is exacerbated with abdominal and chest pain, and is relieved with rest. Diverticulosis/diverticulitis Chest pain Elevated D-dimer Acute kidney injury Anxiety disorder Hypertension GERD Tobacco abuse 09/22/2020. CT Abd Pelvis reveals diverticulosis with concentric mural thickening concerning for developing diverticulitis. Continue empiric Zosyn. Await GI consultation. Continue chest pain protocol and telemetry monitoring. Troponin negative x2. EKG unrevealing for acute ischemic abnormality. Follow-up echocardiogram. Cardiology consultation pending. VQ scan negative for PE. Patient's creatinine elevated 2.2. Patient with creatinine of 1.28 April 2019. Check renal ultrasound and consult nephrology for further evaluation. 09/23. Continue antibiotics for diverticulitis. Advance diet as tolerated and patient to have colonoscopy after resolution of diverticulitis and off Plavix. Patient will follow up as an outpatient in 3 to 4 weeks. Anticipate discharge in a.m. if creatinine has improved. Follow-up BMP in a.m. 09/24. Patient is able to tolerate diet. GI at to perform colonoscopy after resolution of diverticulitis and off Plavix as an outpatient. Creatinine appears to be stable and patient likely with CKD. Await cardiology evaluation of chest pain. Anticipate discharge if okay with cardiology. Elevated D-dimer was evaluated with VQ scan which was found to be negative. 09/25. Patient tolerating full diet. However, we will keep n.p.o. tonight in anticipation for stress test in a.m. per cardiology recommendations. GI to perform colonoscopy after resolution of diverticulitis and off Plavix as an outpatient. Nephrology suspects elevated creatinine is secondary to vasomotor acute kidney injury superimposed on chronic kidney disease. Renal ultrasound negative for hydronephrosis. Discharged with antibiotics as needed for diverticulitis. History Interval history: No new issues overnight Hospitalist Physical - Constitutional Vitals: Temp Pulse Resp BP Pulse Ox 98.3 F 58 L 17 111/65 98 09/25/20 07:54 09/25/20 07:54 09/25/20 07:54 09/25/20 07:54 09/25/20 07:54 General appearance: Present: no acute distress, well-nourished - EENT Eyes: Present: PERRL, EOM intact ENT: hearing intact, clear oral mucosa, dentition normal - Neck Neck: Present: supple, normal ROM - Respiratory Respiratory effort: normal Respiratory: bilateral: CTA - Cardiovascular Rhythm: regular Heart Sounds: Present: S1 & S2. Absent: gallop, rub - Extremities Extremities: no ischemia, No edema, Full ROM - Abdominal General gastrointestinal: soft, non-tender, non-distended, normal bowel sounds - Integumentary Integumentary: Present: clear, warm, dry - Neurologic Neurologic: CNII-XII intact, moves all extremities HEART Score - HEART Score EKG: Normal Age: > 65 Risk factors: 1-2 risk factors Troponin: Troponin T < 0.010 ng/mL (0.00-0.029) 09/22/20 01:25 Troponin: < normal limit - Critical Actions Critical Actions: 0-3 pts:0.9-1.7%risk of adverse cardiac event.Candidate for discharge Results - Labs CBC & Chem 7: 09/22/20 01:25 09/25/20 04:42 Labs: Laboratory Last Values WBC 6.1 K/mm3 (4.5-11.0) 09/22/20 01:25 RBC 5.66 M/mm3 (3.65-5.03) H 09/22/20 01:25 Hgb 15.0 gm/dl (11.8-15.2) 09/22/20 01:25 Hct 45.4 % (35.5-45.6) 09/22/20 01:25 MCV 80 fl (84-94) L 09/22/20 01:25 MCH 27 pg (28-32) L 09/22/20 01:25 MCHC 33 % (32-34) 09/22/20 01:25 RDW 14.7 % (13.2-15.2) 09/22/20 01:25 Plt Count 379 K/mm3 (140-440) 09/22/20 01:25 Lymph % (Auto) 33.9 % (13.4-35.0) 09/22/20 01:25 [place] % (Auto) 8.4 % (0.0-7.3) H 09/22/20 01:25 Eos % (Auto) 1.1 % (0.0-4.3) 09/22/20 01:25 Baso % (Auto) 0.8 % (0.0-1.8) 09/22/20 01:25 Lymph # (Auto) 2.1 K/mm3 (1.2-5.4) 09/22/20 01:25 [place] # (Auto) 0.5 K/mm3 (0.0-0.8) 09/22/20 01:25 Eos # (Auto) 0.1 K/mm3 (0.0-0.4) 09/22/20 01:25 Baso # (Auto) 0.1 K/mm3 (0.0-0.1) 09/22/20 01:25 Seg Neutrophils % 55.3 % (40.0-70.0) 09/22/20 01:25 Seg Neutrophils # 3.5 K/mm3 (1.8-7.7) 09/22/20 01:25 D-Dimer 371.86 ng/mlDDU (0-234) H 09/21/20 18:07 Sodium 138 mmol/L (137-145) 09/25/20 04:42 Potassium 4.0 mmol/L (3.6-5.0) 09/25/20 04:42 Chloride 104.4 mmol/L (98-107) 09/25/20 04:42 Carbon Dioxide 23 mmol/L (22-30) 09/25/20 04:42 Anion Gap 15 mmol/L 09/25/20 04:42 BUN 13 mg/dL (9-20) 09/25/20 04:42 Creatinine 1.9 mg/dL (0.8-1.3) H 09/25/20 04:42 Estimated GFR 42 ml/min 09/25/20 04:42 BUN/Creatinine Ratio 7 % 09/25/20 04:42 Glucose 91 mg/dL (75-100) 09/25/20 04:42 Hemoglobin A1c 5.8 % (4-6) 09/22/20 01:25 Calcium 9.0 mg/dL (8.4-10.2) 09/25/20 04:42 Total Bilirubin 0.80 mg/dL (0.1-1.2) 09/21/20 11:17 AST 16 units/L (5-40) 09/21/20 11:17 ALT 17 units/L (7-56) 09/21/20 11:17 Alkaline Phosphatase 68 units/L (35-129) 09/21/20 11:17 Troponin T < 0.010 ng/mL (0.00-0.029) 09/22/20 01:25 NT-Pro-B Natriuret Pep 31.43 pg/mL (0-900) 09/21/20 11:17 Total Protein 8.0 g/dL (6.3-8.2) 09/21/20 11:17 Albumin 4.2 g/dL (3.9-5) 09/21/20 11:17 Albumin/Globulin Ratio 1.1 % 09/21/20 11:17 Lipase 48 units/L (13-60) 09/21/20 18:10 PTH Intact 87.69 pg/mL (15-65) H 09/24/20 04:56 Urine Color Yellow (Yellow) 09/21/20 15:52 Urine Turbidity Clear (Clear) 09/21/20 15:52 Urine pH 5.0 (5.0-7.0) 09/21/20 15:52 Ur Specific [place] 1.017 (1.003-1.030) 09/21/20 15:52 Urine Protein <15 mg/dl mg/dL (Negative) 09/21/20 15:52 Urine Glucose (UA) Neg mg/dL (Negative) 09/21/20 15:52 Urine Ketones Neg mg/dL (Negative) 09/21/20 15:52 Urine Blood Neg (Negative) 09/21/20 15:52 Urine Nitrite Neg (Negative) 09/21/20 15:52 Urine Bilirubin Neg (Negative) 09/21/20 15:52 Urine Urobilinogen < 2.0 mg/dL (<2.0) 09/21/20 15:52 Ur Leukocyte Esterase Neg (Negative) 09/21/20 15:52 Urine WBC (Auto) 1.0 /HPF (0.0-6.0) 09/21/20 15:52 Urine RBC (Auto) 1.0 /HPF (0.0-6.0) 09/21/20 15:52 U Epithel Cells (Auto) < 1.0 /HPF (0-13.0) 09/21/20 15:52 Urine Mucus Few /HPF 09/21/20 15:52 Urine Creatinine 192.8 mg/dL (0.1-20.0) H 09/22/20 12:30 Urine Sodium 145 mmol/L 09/22/20 12:30 Mack/IV: Voiding Method Urinal Active Medications - Current Medications Current Medications: Generic Name Dose Route Start Last Admin Trade Name Freq PRN Reason Stop Dose Admin Acetaminophen 650 mg 09/22/20 00:43 Acetaminophen 650 Mg Rect Supp [place] Q4H PRN Pain MILD(1-3)/Fever >100.5/ROY Albuterol 2.5 mg 09/22/20 00:43 Albuterol 2.5 Mg/3 Ml Nebu IH Q4HRT PRN Shortness Of Breath Heparin Sodium (Porcine) 5,000 unit 09/22/20 10:00 09/24/20 21:44 Heparin 5,000 Unit/1 Ml Vial SUB-Q 5,000 unit BID ADAMA Administration Hydromorphone HCl 0.5 mg 09/22/20 00:43 09/22/20 01:21 Hydromorphone 1 Mg/1 Ml Inj IV 0.5 mg Q3H PRN Administration Pain , Severe (7-10) Dextrose/Sodium Chloride 1,000 mls @ 75 mls/hr 09/22/20 01:00 09/24/20 21:44 D5/0.45ns IV 75 mls/hr DIRECT ADAMA Administration Piperacillin Sod/Tazobactam Sod 2.25 gm in 50 mls @ 100 mls/hr 09/22/20 10:00 09/25/20 04:06 Zosyn/Ns 2.25 Gm/50ml IV 09/25/20 22:29 100 mls/hr Q6H ADAMA Administration Lorazepam 1 mg 09/22/20 00:51 Lorazepam 2 Mg/Ml Vial IV Q4H PRN Anxiety Morphine Sulfate 2 mg 09/22/20 00:43 Morphine 2 Mg/1 Ml Inj IV Q4H PRN Pain, Moderate (4-6) Nicotine 14 mg 09/22/20 10:00 09/24/20 09:36 Nicotine 14 Mg/24 Hr Patch TD 14 mg QDAY ADAMA Administration Nitroglycerin 0.4 mg 09/22/20 00:48 Nitroglycerin 0.4 Mg Tab Subl SL Q5M PRN Chest Pain Ondansetron HCl 4 mg 09/22/20 00:43 Ondansetron 4 Mg/2 Ml Inj IV Q6H PRN Nausea And Vomiting Pantoprazole Sodium 40 mg 09/23/20 16:30 09/24/20 16:48 Pantoprazole 40 Mg Tab PO 40 mg BIDAC ADAMA Administration Pravastatin Sodium 40 mg 09/22/20 22:00 09/24/20 21:44 Pravastatin 40 Mg Tab PO 40 mg QHS ADAMA Administration Sodium Chloride 10 ml 09/22/20 10:00 09/24/20 21:44 Sodium Chloride 0.9% 10 Ml Flush Syringe IV 10 ml BID ADAMA Administration Sodium Chloride 10 ml 09/22/20 00:43 Sodium Chloride 0.9% 10 Ml Flush Syringe IV PRN PRN LINE FLUSH Nutrition/Malnutrition Assess - Dietary Evaluation Nutrition/Malnutrition Findings: Nutrition Notes Start: 09/22/20 10:37 Freq: Status: Active Protocol: Document 09/22/20 10:37 GILDA (Rec: 09/22/20 10:44 GILDA [id number]) Nutrition Notes 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 Pt reports eating less since procedure done 1 year ago. He states wt loss in past month but unsure why. 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 No Is Patient Ambulatory and/or Out of Bed No REE-([place]-confined to bed) 1840.680 Kcal/Kg value to use for calculation 18 Approximate Energy Requirements Using 1532 kcal/Kg Calculation Used for Recommendations Kcal/kg Additional Notes Protein: (1.2-1.5 g/kg AdjBW 75kg) 90-113g Fluid: 1 ml/kcal or per MD Nutrition Intervention Change Diet Order: Advance as able Goal #1 Diet advancement Anticipated Discharge Needs: Cardiac with ONS PRN Follow-Up By: 09/25/20 Additional Comments FU for diet advancement and intakes
[2020-09-25] MEDS: PANTOPRAZOLE 40 MG TAB PO SCH ×2 (08:30→16:01)
[2020-09-25] MEDS: NICOTINE 14 MG/24 HR PATCH TD SCH (10:02)
[2020-09-25] MEDS: HEPARIN 5,000 UNIT/1 ML VIAL SUB-Q SCH ×2 (10:02→21:56)
--- NOTE | 2020-09-25 10:15 | Progress Note ---
Assessment and Plan 1. Abdominal pain 2. History of coronary artery disease 3. Essential hypertension 4. GERD 5. History of prostate CA 6. Chronic kidney disease stage III Chest x-ray shows no acute cardiopulmonary process. Echocardiogram shows mild concentric LVH with mild left ventricular diastolic dysfunction left ventricular ejection fraction of 55 to 60% VQ scan is normal and serum troponin levels are normal. Plan. Cardiac [place] stable elective stress MPI before discharge Subjective Date of service: 09/25/20 Interval history: Patient is stable and denies any cardiac symptoms. Objective Vital Signs Temp Pulse Resp BP BP Pulse Ox 09/25/20 07:54 98.3 F 58 L 17 111/65 98 09/25/20 04:27 57 L 09/25/20 03:15 98.5 F 57 L 18 124/68 99 09/25/20 00:08 60 09/24/20 23:15 97.5 F L 61 16 104/46 95 09/24/20 19:45 60 09/24/20 19:15 97.9 F 65 14 116/49 97 09/24/20 16:53 98.4 F 66 16 115/61 96 09/24/20 11:17 63 101/47 96 - Physical Examination HEENT: Positive: PERRL, Mucus Membranes Moist Neck: Positive: neck supple, trachea midline Cardiac: Positive: Regular Rate, S1/S2, S3, PMI, Dilated, Laterally Displaced Lungs: Positive: clear to auscultation, No Wheeze, Rales, Rhonchi Neuro: Positive: Grossly Intact Abdomen: Positive: Soft, Active Bowel Sounds. Negative: Tender, Distended Skin: Positive: Clear Incision: Cardiac Cath Site Musculoskeletal: No Pain, Normal Range of Motion Extremities: Present: normal. Absent: edema - Labs and Meds Comprehensive Metabolic Panel 09/25/20 Range/Units 04:42 Sodium 138 (137-145) mmol/L Potassium 4.0 (3.6-5.0) mmol/L Chloride 104.4 (98-107) mmol/L Carbon Dioxide 23 (22-30) mmol/L BUN 13 (9-20) mg/dL Creatinine 1.9 H (0.8-1.3) mg/dL Glucose 91 (75-100) mg/dL Calcium 9.0 (8.4-10.2) mg/dL - Imaging and Cardiology EKG: report reviewed, image reviewed Cardiac cath: report reviewed (01/2015 - mild luminal irregularities, normal LV fxn) - EKG Sinus rhythms and dysrhythmias: sinus rhythm Ventricular dysrhythmias: ventricular premature com
[2020-09-25] MEDS: D5W/0.45% NACL 1,000 ML IV SCH (15:15)
[2020-09-25] MEDS: PRAVASTATIN 40 MG TAB PO SCH (21:56)
[2020-09-26] MEDS: PIPERACIL-TAZO 2.25 GM/50 ML 2.25 GM/50 ML BAG IV SCH (00:45)
[2020-09-26] MEDS: D5W/0.45% NACL 1,000 ML IV SCH (00:46)
[2020-09-26] MEDS ORDERED: PIPERACIL-TAZO 2.25 GM/50 ML 2.25 GM/50 ML BAG IV ONE (01:00)
[2020-09-26 05:52] LABS: Basophils % (Auto) 0.7 % (0.0-1.8); Eosinophils # (Auto) 0.2 K/mm3 (0.0-0.4); Hematocrit 35.6 % (35.5-45.6); Hemoglobin 12.5 gm/dl (11.8-15.2); Lymphocytes # (Auto) 1.7 K/mm3 (1.2-5.4); Lymphocytes % (Auto) 36.5 % (13.4-35.0); Mean Corpuscular HGB Conc 35 % (32-34); Mean Corpuscular Volume 81 fl (84-94); Monocytes # (Auto) 0.3 K/mm3 (0.0-0.8); Monocytes % (Auto) 7.6 % (0.0-7.3); Platelet Count 292 K/mm3 (140-440); Red Blood Count 4.38 M/mm3 (3.65-5.03); Red Cell Distribution Width 14.7 % (13.2-15.2)
[2020-09-26 06:04] LABS: Calcium 8.4 mg/dL (8.4-10.2)
[2020-09-26] MEDS ORDERED: REGADENOSON 0.4 MG/5 ML INJ IV ONE ×2 (06:32→08:48)
[2020-09-26] MEDS: PANTOPRAZOLE 40 MG TAB PO SCH (07:43)
--- NOTE | 2020-09-26 08:44 | Progress Note ---
Assessment and Plan Assessment and plan: 75-year-old -Azerbaijani male with history of WENDY, CAD, chronic lumbar pain, hypertension, GERD, arthritis, prostate cancer, questionable history of anxiety who presents [facility] with complaints of shortness of breath, chest pain, abdominal pain, and " anxiety attack". Patient complains of 7/10 sharp abdominal pain which started in the right upper quadrant, now in the epigastric region with radiation to lower abdomen. His abdominal pain started a few weeks ago in the right upper quadrant, it was intermittent, and he thought that he had pulled an abdominal muscle. The pain has since progressed to the epigastric region with radiation to the lower abdomen and is now constant. Pain is relieved with pain meds. Endorses history of GERD not currently on PPI. Additionally patient complains of shortness of breath and chest pain. On examination when patient was asked to point to the area of chest where he felt the pain, patient made note to epigastric area. 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 Patient shortness of breath is exacerbated with abdominal and chest pain, and is relieved with rest. Diverticulosis/diverticulitis Chest pain Elevated D-dimer Acute kidney injury Anxiety disorder Hypertension GERD Tobacco abuse 09/22/2020. CT Abd Pelvis reveals diverticulosis with concentric mural thickening concerning for developing diverticulitis. Continue empiric Zosyn. Await GI consultation. Continue chest pain protocol and telemetry monitoring. Troponin negative x2. EKG unrevealing for acute ischemic abnormality. Follow-up echocardiogram. Cardiology consultation pending. VQ scan negative for PE. Patient's creatinine elevated 2.2. Patient with creatinine of 1.28 April 2019. Check renal ultrasound and consult nephrology for further evaluation. 09/23. Continue antibiotics for diverticulitis. Advance diet as tolerated and patient to have colonoscopy after resolution of diverticulitis and off Plavix. Patient will follow up as an outpatient in 3 to 4 weeks. Anticipate discharge in a.m. if creatinine has improved. Follow-up BMP in a.m. 09/24. Patient is able to tolerate diet. GI at to perform colonoscopy after resolution of diverticulitis and off Plavix as an outpatient. Creatinine appears to be stable and patient likely with CKD. Await cardiology evaluation of chest pain. Anticipate discharge if okay with cardiology. Elevated D-dimer was evaluated with VQ scan which was found to be negative. 09/25. Patient tolerating full diet. However, we will keep n.p.o. tonight in anticipation for stress test in a.m. per cardiology recommendations. GI to perform colonoscopy after resolution of diverticulitis and off Plavix as an outpatient. Nephrology suspects elevated creatinine is secondary to vasomotor acute kidney injury superimposed on chronic kidney disease. Renal ultrasound negative for hydronephrosis. Discharged with antibiotics as needed for diverticulitis. 09/26; patient can be discharged home with p.o. antibiotics if stress test is negative. Need to follow-up with GI as an outpatient for colonoscopy. History Interval history: Patient was seen and evaluated this morning Patient does not have any chest pain Patient ate regular diet and no abdominal pain Hospitalist Physical - Physical exam Narrative exam: Not in cardiopulmonary distress. The patient appeared well nourished and normally developed. Vital signs as documented. Head exam is unremarkable. No scleral icterus . Neck is without jugular venous distension, thyromegaly, or carotid bruits. Lungs are clear to auscultation. Cardiac exam reveals regular rate and Rhythm. Abdominal exam reveals normal bowel sounds, nontender, no organomegaly. Extremities are nonedematous and both femoral and pedal pulses are normal. [employer] ARC: Alert and oriented 3. No focal weakness. - Constitutional Vitals: Temp Pulse Resp BP Pulse Ox 98.0 F 56 L 18 118/56 96 09/26/20 04:17 09/26/20 04:17 09/26/20 04:17 09/26/20 04:17 09/26/20 04:17 General appearance: Present: no acute distress, well-nourished HEART Score - HEART Score EKG: Normal Age: > 65 Risk factors: 1-2 risk factors Troponin: Troponin T < 0.010 ng/mL (0.00-0.029) 09/22/20 01:25 Troponin: < normal limit - Critical Actions Critical Actions: 0-3 pts:0.9-1.7%risk of adverse cardiac event.Candidate for discharge Results - Labs CBC & Chem 7: 09/26/20 05:17 09/26/20 05:17 Labs: Laboratory Last Values WBC 4.5 K/mm3 (4.5-11.0) 09/26/20 05:17 RBC 4.38 M/mm3 (3.65-5.03) 09/26/20 05:17 Hgb 12.5 gm/dl (11.8-15.2) 09/26/20 05:17 Hct 35.6 % (35.5-45.6) 09/26/20 05:17 MCV 81 fl (84-94) L 09/26/20 05:17 MCH 28 pg (28-32) 09/26/20 05:17 MCHC 35 % (32-34) H 09/26/20 05:17 RDW 14.7 % (13.2-15.2) 09/26/20 05:17 Plt Count 292 K/mm3 (140-440) 09/26/20 05:17 Lymph % (Auto) 36.5 % (13.4-35.0) H 09/26/20 05:17 [place] % (Auto) 7.6 % (0.0-7.3) H 09/26/20 05:17 Eos % (Auto) 5.0 % (0.0-4.3) H 09/26/20 05:17 Baso % (Auto) 0.7 % (0.0-1.8) 09/26/20 05:17 Lymph # (Auto) 1.7 K/mm3 (1.2-5.4) 09/26/20 05:17 [place] # (Auto) 0.3 K/mm3 (0.0-0.8) 09/26/20 05:17 Eos # (Auto) 0.2 K/mm3 (0.0-0.4) 09/26/20 05:17 Baso # (Auto) 0.0 K/mm3 (0.0-0.1) 09/26/20 05:17 Seg Neutrophils % 50.2 % (40.0-70.0) 09/26/20 05:17 Seg Neutrophils # 2.3 K/mm3 (1.8-7.7) 09/26/20 05:17 D-Dimer 371.86 ng/mlDDU (0-234) H 09/21/20 18:07 Sodium 138 mmol/L (137-145) 09/26/20 05:17 Potassium 4.0 mmol/L (3.6-5.0) 09/26/20 05:17 Chloride 105.5 mmol/L (98-107) 09/26/20 05:17 Carbon Dioxide 23 mmol/L (22-30) 09/26/20 05:17 Anion Gap 14 mmol/L 09/26/20 05:17 BUN 11 mg/dL (9-20) 09/26/20 05:17 Creatinine 1.7 mg/dL (0.8-1.3) H 09/26/20 05:17 Estimated GFR 48 ml/min 09/26/20 05:17 BUN/Creatinine Ratio 6 % 09/26/20 05:17 Glucose 102 mg/dL (75-100) H 09/26/20 05:17 POC Glucose 93 mg/dL (70-105) 09/26/20 07:26 Hemoglobin A1c 5.8 % (4-6) 09/22/20 01:25 Calcium 8.4 mg/dL (8.4-10.2) 09/26/20 05:17 Total Bilirubin 0.80 mg/dL (0.1-1.2) 09/21/20 11:17 AST 16 units/L (5-40) 09/21/20 11:17 ALT 17 units/L (7-56) 09/21/20 11:17 Alkaline Phosphatase 68 units/L (35-129) 09/21/20 11:17 Troponin T < 0.010 ng/mL (0.00-0.029) 09/22/20 01:25 NT-Pro-B Natriuret Pep 31.43 pg/mL (0-900) 09/21/20 11:17 Total Protein 8.0 g/dL (6.3-8.2) 09/21/20 11:17 Albumin 4.2 g/dL (3.9-5) 09/21/20 11:17 Albumin/Globulin Ratio 1.1 % 09/21/20 11:17 Lipase 48 units/L (13-60) 09/21/20 18:10 PTH Intact 87.69 pg/mL (15-65) H 09/24/20 04:56 Urine Color Yellow (Yellow) 09/21/20 15:52 Urine Turbidity Clear (Clear) 09/21/20 15:52 Urine pH 5.0 (5.0-7.0) 09/21/20 15:52 Ur Specific [place] 1.017 (1.003-1.030) 09/21/20 15:52 Urine Protein <15 mg/dl mg/dL (Negative) 09/21/20 15:52 Urine Glucose (UA) Neg mg/dL (Negative) 09/21/20 15:52 Urine Ketones Neg mg/dL (Negative) 09/21/20 15:52 Urine Blood Neg (Negative) 09/21/20 15:52 Urine Nitrite Neg (Negative) 09/21/20 15:52 Urine Bilirubin Neg (Negative) 09/21/20 15:52 Urine Urobilinogen < 2.0 mg/dL (<2.0) 09/21/20 15:52 Ur Leukocyte Esterase Neg (Negative) 09/21/20 15:52 Urine WBC (Auto) 1.0 /HPF (0.0-6.0) 09/21/20 15:52 Urine RBC (Auto) 1.0 /HPF (0.0-6.0) 09/21/20 15:52 U Epithel Cells (Auto) < 1.0 /HPF (0-13.0) 09/21/20 15:52 Urine Mucus Few /HPF 09/21/20 15:52 Urine Creatinine 192.8 mg/dL (0.1-20.0) H 09/22/20 12:30 Urine Sodium 145 mmol/L 09/22/20 12:30 Mack/IV: Voiding Method Toilet Active Medications - Current Medications Current Medications: Generic Name Dose Route Start Last Admin Trade Name Freq PRN Reason Stop Dose Admin Acetaminophen 650 mg 09/22/20 00:43 Acetaminophen 650 Mg Rect Supp [place] Q4H PRN Pain MILD(1-3)/Fever >100.5/ROY Albuterol 2.5 mg 09/22/20 00:43 Albuterol 2.5 Mg/3 Ml Nebu IH Q4HRT PRN Shortness Of Breath Heparin Sodium (Porcine) 5,000 unit 09/22/20 10:00 09/25/20 21:56 Heparin 5,000 Unit/1 Ml Vial SUB-Q 5,000 unit BID ADAMA Administration Hydromorphone HCl 0.5 mg 09/22/20 00:43 09/22/20 01:21 Hydromorphone 1 Mg/1 Ml Inj IV 0.5 mg Q3H PRN Administration Pain , Severe (7-10) Dextrose/Sodium Chloride 1,000 mls @ 75 mls/hr 09/22/20 01:00 09/26/20 00:46 D5/0.45ns IV 75 mls/hr DIRECT ADAMA Administration Lorazepam 1 mg 09/22/20 00:51 Lorazepam 2 Mg/Ml Vial IV Q4H PRN Anxiety Morphine Sulfate 2 mg 09/22/20 00:43 Morphine 2 Mg/1 Ml Inj IV Q4H PRN Pain, Moderate (4-6) Nicotine 14 mg 09/22/20 10:00 09/25/20 10:02 Nicotine 14 Mg/24 Hr Patch TD 14 mg QDAY ADAMA Administration Nitroglycerin 0.4 mg 09/22/20 00:48 Nitroglycerin 0.4 Mg Tab Subl SL Q5M PRN Chest Pain Ondansetron HCl 4 mg 09/22/20 00:43 09/25/20 21:56 Ondansetron 4 Mg/2 Ml Inj IV 4 mg Q6H PRN Administration Nausea And Vomiting Pantoprazole Sodium 40 mg 09/23/20 16:30 09/26/20 07:43 Pantoprazole 40 Mg Tab PO Not Given BIDAC ADAMA Pravastatin Sodium 40 mg 09/22/20 22:00 09/25/20 21:56 Pravastatin 40 Mg Tab PO 40 mg QHS ADAMA Administration Sodium Chloride 10 ml 09/22/20 10:00 09/25/20 21:56 Sodium Chloride 0.9% 10 Ml Flush Syringe IV 10 ml BID ADAMA Administration Sodium Chloride 10 ml 09/22/20 00:43 Sodium Chloride 0.9% 10 Ml Flush Syringe IV PRN PRN LINE FLUSH Nutrition/Malnutrition Assess - Dietary Evaluation Nutrition/Malnutrition Findings: Nutrition Notes Start: 09/22/20 10:37 Freq: Status: Active Protocol: Document 09/25/20 12:28 (Rec: 09/25/20 12:32 [email or web address]) Nutrition Notes Initial or Follow up Reassessment Current Diagnosis Acute Kidney Injury,Coronary Artery Disease,Hypertension Other Pertinent Diagnosis anxiety, prostate ca, diverticulitis, GERD, WENDY Current Diet Cardiac Labs/Tests Cr 1.9 Pertinent Medications Reviewed Height 5 ft 6 in Weight 89.6 kg [place] Body Weight (kg) 64.54 BMI 31.8 Weight Status Obese Subjective/Other Information FU for intakes. Pt reports eating 50-75% of meals however , this AM he did not eat breakfast. Pt states he gets full quickly. Percent of energy/protein needs met: 61%/40% Burn Absent Trauma Absent GI Symptoms None Current % PO Poor (25-49%) Minimum of two criteria Yes Interpretation of Weight Loss (severe) >5% in 1 month Muscle Mass Mild Depletion (non-severe) #1 Nutrition Diagnosis Malnutrition Diagnosis Progress(for reassessment Continues documentation) Is patient on ventilator? No Is Patient Ambulatory and/or Out of Bed No REE-([place] or-confined to bed) 1894.620 Kcal/Kg value to use for calculation 18 Approximate Energy Requirements Using 1613 kcal/Kg Calculation Used for Recommendations Kcal/kg Additional Notes Protein: (1.2-1.5 g/kg AdjBW 75kg) 90-113g Fluid: 1 ml/kcal or per MD Nutrition Intervention Change Diet Order: Continue Add Supplement/Snack (indicate name/kcal Ensure Enlive BID /protein ) Provides kCal: 700 Provides Protein (gm) 40 Goal #1 Meet at least 75% of protein and energy needs via PO and ONS intakes Anticipated Discharge Needs: Cardiac with ONS PRN Follow-Up By: 09/27/20 Additional Comments FU for intakes and ONS tolerance
--- NOTE | 2020-09-26 08:57 | Progress Note ---
Assessment and Plan 1. Acute kidney injury: Suspect vasomotor CRISTINO superimposed on CKD. UA bland. ATN likely. Renal US negative for hydro. Encourage PO fluids. Monitor renal function. Creatinine level improving. Avoid nephrotoxic agents. Meds dosage based on GFR. 2. FEN: Monitor lytes and volume status. 3. Diverticulosis: CT Abd Pelvis revealed diverticulosis with concentric mural thickening c oncerning for developing diverticulitis. Was on IV Zosyn. Followed by GI. Supportive care. 4. Acute Chest Pain: R/O ACS. Chest pain protocol. Serial Troponin negative. CXR negative. EKG unrevealing for acute ischemic abnormalities. Seen by Cardiology. 5. Elevated D-dimer: VQ scan negative for PE. 6. Anxiety. 7. HTN: Monitor BP. Adjust meds as needed. 8. Tobacco use: Admits to chewing tobacco daily. Counseled for cessation. F/u with me in 1-2 weeks. Subjective: Patient was seen and examined at the bedside. Doing ok. Examination: General appearance: well-developed, appears stated age, well nourished, not in distress HEENT: ALINA, atraumatic Neck: trachea midline Respiratory: ctab Heart: S1S2, regular, no murmur Abdomen: soft, bowel sounds heard, NT Integumentary: no obvious rash Neurologic: AO, able to move extremities Ext: no edema noted Subjective Date of service: 09/26/20 Objective - Vital Signs Vital signs: Vital Signs - 12hr 09/25/20 09/25/20 09/26/20 22:00 23:58 04:17 Temperature 97.7 F 98.0 F Pulse Rate 59 L 55 L 56 L Respiratory 18 18 Rate Blood Pressure 109/60 118/56 O2 Sat by Pulse 97 96 Oximetry 09/26/20 09/26/20 07:28 08:45 Temperature 97.5 F L Pulse Rate 55 L 56 L Respiratory 18 Rate Blood Pressure 94/57 O2 Sat by Pulse 97 Oximetry - Lab 09/26/20 05:17 09/26/20 05:17 Most recent lab results Calcium 8.4 mg/dL (8.4-10.2) 09/26/20 05:17 Urine Creatinine 192.8 mg/dL (0.1-20.0) H 09/22/20 12:30 Urine Sodium 145 mmol/L 09/22/20 12:30 Medications & Allergies - Medications Allergies/Adverse Reactions: Allergies meperidine [From Demerol] Allergy (Verified 08/22/17 11:31) Itching Home Medications: Home Medications Medication Instructions Recorded Confirmed Last Taken Type Amlodipine Besylate 10 mg PO DAILY 02/23/15 09/23/20 09/01/17 05:15 History Clopidogrel Bisulfate [Plavix] 75 mg PO DAILY 08/26/17 09/23/20 08/26/17 History Pregabalin 75 mg PO BID 08/26/17 09/23/20 09/01/17 05:15 History Simvastatin (Nf) [Zocor TAB] 20 mg PO QHS 08/26/17 09/23/20 08/31/17 History Neomy/Polymyx B/Hc Opth Susp 1 drop OS Q6HR #1 bottle 09/19/17 09/23/20 Unknown Rx [Cortisporin (OPTH) Susp] Amoxicillin/K Clav Tab [Augmentin 1 tab PO Q12HR #10 tab 09/26/20 Unknown Rx 875 mg] Pantoprazole [Protonix TAB] 40 mg PO DAILY #30 tablet 09/26/20 Unknown Rx Active Medications: Generic Name Dose Route Start Last Admin Trade Name Freq PRN Reason Stop Dose Admin Acetaminophen 650 mg 09/22/20 00:43 Acetaminophen 650 Mg Rect Supp CO Q4H PRN Pain MILD(1-3)/Fever >100.5/ROY Albuterol 2.5 mg 09/22/20 00:43 Albuterol 2.5 Mg/3 Ml Nebu IH Q4HRT PRN Shortness Of Breath Heparin Sodium (Porcine) 5,000 unit 09/22/20 10:00 09/25/20 21:56 Heparin 5,000 Unit/1 Ml Vial SUB-Q 5,000 unit BID ADAMA Administration Hydromorphone HCl 0.5 mg 09/22/20 00:43 09/22/20 01:21 Hydromorphone 1 Mg/1 Ml Inj IV 0.5 mg Q3H PRN Administration Pain , Severe (7-10) Dextrose/Sodium Chloride 1,000 mls @ 75 mls/hr 09/22/20 01:00 09/26/20 00:46 D5/0.45ns IV 75 mls/hr DIRECT ADAMA Administration Lorazepam 1 mg 09/22/20 00:51 Lorazepam 2 Mg/Ml Vial IV Q4H PRN Anxiety Morphine Sulfate 2 mg 09/22/20 00:43 Morphine 2 Mg/1 Ml Inj IV Q4H PRN Pain, Moderate (4-6) Nicotine 14 mg 09/22/20 10:00 09/25/20 10:02 Nicotine 14 Mg/24 Hr Patch TD 14 mg QDAY ADAMA Administration Nitroglycerin 0.4 mg 09/22/20 00:48 Nitroglycerin 0.4 Mg Tab Subl SL Q5M PRN Chest Pain Ondansetron HCl 4 mg 09/22/20 00:43 09/25/20 21:56 Ondansetron 4 Mg/2 Ml Inj IV 4 mg Q6H PRN Administration Nausea And Vomiting Pantoprazole Sodium 40 mg 09/23/20 16:30 09/26/20 07:43 Pantoprazole 40 Mg Tab PO Not Given BIDAC ADAMA Pravastatin Sodium 40 mg 09/22/20 22:00 09/25/20 21:56 Pravastatin 40 Mg Tab PO 40 mg QHS ADAMA Administration Sodium Chloride 10 ml 09/22/20 10:00 09/25/20 21:56 Sodium Chloride 0.9% 10 Ml Flush Syringe IV 10 ml BID ADAMA Administration Sodium Chloride 10 ml 09/22/20 00:43 Sodium Chloride 0.9% 10 Ml Flush Syringe IV PRN PRN LINE FLUSH
[2020-09-26] MEDS: NICOTINE 14 MG/24 HR PATCH TD SCH (10:00)
[2020-09-26] MEDS: HEPARIN 5,000 UNIT/1 ML VIAL SUB-Q SCH (10:00)
--- NOTE | 2020-09-26 11:07 | Progress Note ---
Assessment and Plan - Patient Problems (1) Chest pain Current Visit: Yes Status: Acute Plan to address problem: Patient hospitalized with atypical chest pain. Serial ECGs show normal sinus rhythm and no ischemic changes. Serial troponin levels x3 when negative. Six years ago, he underwent a cardiac catheterization at this hospital that reported angiographically normal coronary arteries. Serial left ventricular function assessments including an echocardiogram 2 years ago reported normal left ventricular systolic function, ejection fraction 55 to 60%. Today, he underwent a Lexiscan thallium stress test as ordered, results are pe nding. Subjective Date of service: 09/26/20 Interval history: Patient hospitalized with atypical chest pain. Serial ECGs show normal sinus rhythm and no ischemic changes. Serial troponin levels x3 when negative. Six years ago, he underwent a cardiac catheterization at this hospital that reported angiographically normal coronary arteries. Serial left ventricular function assessments including an echocardiogram 2 years ago reported normal left ventricular systolic function, ejection fraction 55 to 60%. Today, he underwent a Lexiscan thallium stress test as ordered, results are pending. Objective Vital Signs Temp Pulse Pulse Resp BP BP Pulse Ox 09/26/20 08:45 56 L 09/26/20 07:28 97.5 F L 55 L 18 94/57 97 09/26/20 04:17 98.0 F 56 L 18 118/56 96 09/25/20 23:58 97.7 F 55 L 18 109/60 97 09/25/20 22:00 59 L 09/25/20 20:00 68 18 98 09/25/20 19:44 98.2 F 58 L 20 112/53 98 09/25/20 15:51 98.3 F 59 L 16 115/63 98 09/25/20 13:08 56 L 09/25/20 11:26 97.6 F 60 17 120/62 97 - Physical Examination General: Appears Well, No Apparent Distress HEENT: Positive: PERRL, Mucus Membranes Moist Neck: Positive: neck supple, trachea midline Cardiac: Positive: Reg Rate and Rhythm Lungs: Positive: Decreased Breath Sounds Neuro: Positive: Grossly Intact Abdomen: Positive: Soft, Active Bowel Sounds. Negative: Tender, Distended Skin: Positive: Clear Incision: Cardiac Cath Site Musculoskeletal: No Pain, Normal Range of Motion Extremities: Present: normal. Absent: edema - Labs and Meds CBC 09/26/20 Range/Units 05:17 WBC 4.5 (4.5-11.0) K/mm3 RBC 4.38 (3.65-5.03) M/mm3 Hgb 12.5 (11.8-15.2) gm/dl Hct 35.6 (35.5-45.6) % Plt Count 292 (140-440) K/mm3 Lymph # (Auto) 1.7 (1.2-5.4) K/mm3 Woodson # (Auto) 0.3 (0.0-0.8) K/mm3 Eos # (Auto) 0.2 (0.0-0.4) K/mm3 Baso # (Auto) 0.0 (0.0-0.1) K/mm3 Comprehensive Metabolic Panel 09/26/20 Range/Units 05:17 Sodium 138 (137-145) mmol/L Potassium 4.0 (3.6-5.0) mmol/L Chloride 105.5 (98-107) mmol/L Carbon Dioxide 23 (22-30) mmol/L BUN 11 (9-20) mg/dL Creatinine 1.7 H (0.8-1.3) mg/dL Glucose 102 H (75-100) mg/dL Calcium 8.4 (8.4-10.2) mg/dL - Imaging and Cardiology EKG: report reviewed, image reviewed Cardiac cath: report reviewed (01/2015 - mild luminal irregularities, normal LV fxn) - EKG Sinus rhythms and dysrhythmias: sinus rhythm Ventricular dysrhythmias: ventricular premature com
--- NOTE | 2020-09-26 12:46 | Nuclear Medicine Report ---
APPROVED REPORT Exam: Nuclear Stress Test Indication: Chest pain BMI: 0 Stress Test Details Stress Test: Pharmacologic stress testing performed using 0.4 mg of regadenoson per 5 mL given IV over 10 seconds. HR Resting HR: 50 bpmMax Heart Rate (APMHR): 145 bpm Max HR Achieved: 79 bpmTarget HR (85% APMHR): 123 bpm % of APMHR: 54 Recovery HR: 65 bpm HR response to stress: Normal HR response to stress BP Resting BP: 121/58 mmHg Max BP: 141/76 mmHg Recovery BP: 122/63 mmHg BP response to stress: Normal blood pressure response to stress. ECG Resting ECG: Sinus Bradycardia Stress ECG: Sinus Rhythm ST Change: None Arrhythmia: None Recovery ECG: Sinus Rhythm Recovery ST Change: None Recovery Arrhythmia: None Stress ECG Conclusion No chest pain and no ST changes with pharmacologic stress testing, myocardial perfusion images are pending for final test interpretation. NM EXAM: Myocardial Perfusion REST/STRESS Imaging Protocol: Rest Tc-99m/Stress Tc-99m 1 day Resting Data Rest SPECT myocardial perfusion imaging was performed in supine position 45 minutes following the intravenous injection of 10 mCi of Tc-99m Myoview. Time of rest injection: 0653 Pharmacologic Stress Pharmacologic stress test was performed by injecting Regadenoson 0.4 mg IV push followed by the intravenous injection of 28 mCi of Tc-99m Myoview. Time of stress injection: 1031 Gated Stress SPECT was performed 30 minutes after stress injection. The images were gated to evaluate regional wall motion and calculate left ventricular ejection fraction. Study Quality Study: excellent Lung Uptake: Normal Study Data TID = 1.12. Perfusion Wall Motion The rest and stress images show normal left ventricular wall motion. Nuclear Conclusion ECG Findings: negative for ischemia Clinical Findings: negative for ischemia Nuclear Findings: negative for ischemia Left Ventricular Function: normal Risk Study: low Normal rest and stress perfusion images, with mild diaphragmatic attenuation artifact. Normal left ventricular systolic function, ejection fraction 64%. Conclusion No chest pain and no ST changes with pharmacologic stress testing, myocardial perfusion images are pending for final test interpretation.
--- NOTE | 2020-09-26 13:21 | Discharge Summary ---
Providers - Providers Date of Admission: 09/22/20 16:03 Date of discharge: 09/26/20 Attending physician: YAEL WATKINS MD 09/22/20 Consult to Cardiac Rehabilitation [CONS] Routine Reason For Exam: Phase I 09/22/20 00:43 Consult to Physician [CONS] Routine Comment: Consulting Provider: RONNELL OWEN Physician Instructions: Reason For Exam: Diverticulosis/diverticulitis, c/o acute abd pain 09/22/20 09:33 Consult to Physician [CONS] Routine Comment: Consulting Provider: JOSE ALEJANDRO PRECIADO Physician Instructions: Reason For Exam: ARF 09/23/20 08:59 Consult to Physician [CONS] Routine Comment: Consulting Provider: MELECIO HENLEY Physician Instructions: Reason For Exam: cp Primary care physician: JOSSELYN GARRIDO Hospitalization Reason for admission: Diverticulitis, chest pain Condition: Stable Hospital course: History of present illness: 75-year-old -[place] male with history of WENDY, CAD, chronic lumbar pain, hypertension, GERD, arthritis, prostate cancer, questionable history of anxiety who presents [facility] with complaints of shortness of breath, chest pain, abdominal pain, and " anxiety attack". Patient complains of 7/10 sharp abdominal pain which started in the right upper quadrant, now in the epigastric region with radiation to lower abdomen. His abdominal pain started a few weeks ago in the right upper quadrant, it was intermittent, and he thought that he had pulled an abdominal muscle. The pain has since progressed to the epigastric region with radiation to the lower abdomen and is now constant. Pain is relieved with pain meds. Endorses history of GERD not currently on PPI. Additionally patient complains of shortness of breath and chest pain. On examination when patient was asked to point to the area of chest where he felt the pain, patient made note to epigastric area. However he mentioned that approximately 1 to 2 days ago he had substernal nonradiating 8/10 chest pain. Patient shortness of breath is exacerbated with abdominal and chest pain, and is relieved with rest. Patient states he had what he believed to be an " anxiety attack" earlier today. He describes feeling very anxious, in a state of panic, nervous, and unable to sit still. He denies formal diagnosis of anxiety. Denies PND, orthopnea, lower extremity edema, palpitations, recent unintended weight gain greater than 2 pounds in 1 day, cough, sputum production, fever, chills, nausea, vomiting, diarrhea, melena, hematuria, hematochezia, dysuria, constipation, recent sick contacts. Patient's PCP is Dr. Garrido. Hospital course 75-year-old -[place] male with history of WENDY, CAD, chronic lumbar pain, hypertension, GERD, arthritis, prostate cancer, questionable history of anxiety who presents [facility] with complaints of shortness of breath, chest pain, abdominal pain, and " anxiety attack". Patient complains of 7/10 sharp abdominal pain which started in the right upper quadrant, now in the epigastric region with radiation to lower abdomen. His abdominal pain started a few weeks ago in the right upper quadrant, it was intermittent, and he thought that he had pulled an abdominal muscle. The pain has since progressed to the epigastric region with radiation to the lower abdomen and is now constant. Pain is relieved with pain meds. Endorses history of GERD not currently on PPI. Additionally patient complains of shortness of breath and chest pain. On examination when patient was asked to point to the area of chest where he felt the pain, patient made note to epigastric area. 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 Patient shortness of breath is exacerbated with abdominal and chest pain, and is relieved with rest. Diverticulosis/diverticulitis Chest pain Elevated D-dimer Acute kidney injury Anxiety disorder Hypertension GERD Tobacco abuse 09/22/2020. CT Abd Pelvis reveals diverticulosis with concentric mural thickening concerning for developing diverticulitis. Continue empiric Zosyn. Await GI consultation. Continue chest pain protocol and telemetry monitoring. Troponin negative x2. EKG unrevealing for acute ischemic abnormality. Follow-up echocardiogram. Cardiology consultation pending. VQ scan negative for PE. Patient's creatinine elevated 2.2. Patient with creatinine of 1.28 April 2019. Check renal ultrasound and consult nephrology for further evaluation. 09/23. Continue antibiotics for diverticulitis. Advance diet as tolerated and patient to have colonoscopy after resolution of diverticulitis and off Plavix. Patient will follow up as an outpatient in 3 to 4 weeks. Anticipate discharge in a.m. if creatinine has improved. Follow-up BMP in a.m. 09/24. Patient is able to tolerate diet. GI at to perform colonoscopy after resolution of diverticulitis and off Plavix as an outpatient. Creatinine appears to be stable and patient likely with CKD. Await cardiology evaluation of chest pain. Anticipate discharge if okay with cardiology. Elevated D-dimer was evaluated with VQ scan which was found to be negative. 09/25. Patient tolerating full diet. However, we will keep n.p.o. tonight in anticipation for stress test in a.m. per cardiology recommendations. GI to perform colonoscopy after resolution of diverticulitis and off Plavix as an outpatient. Nephrology suspects elevated creatinine is secondary to vasomotor acute kidney injury superimposed on chronic kidney disease. Renal ultrasound negative for hydronephrosis. Discharged with antibiotics as needed for diverticulitis. 09/26; patient can be discharged home with p.o. antibiotics if stress test is negative. Need to follow-up with GI as an outpatient for colonoscopy. Stress test was negative, patient did not have any further chest pain. Patient scheduled to see GI as an outpatient in 6 weeks for colonoscopy. Patient scheduled to see Dr. Garrido as a primary care physician in a week. Patient was hemodynamically stable at the time of discharge. Patient did not have any pain. Patient tolerated regular diet. Patient's questions and concerns were addressed at the bedside. Disposition: - TO HOME OR SELFCARE Final Discharge Diagnosis (Prints w/discharge instructions): Diverticulitis. chest pain Time spent for discharge: 34 minutes - Discharge Diagnoses (1) Abdominal pain Status: Acute Qualifiers: Abdominal location: unspecified location Qualified Code(s): R10.9 - Unspecified abdominal pain (2) Acute chest pain Status: Acute (3) Colitis Status: Acute (4) Diverticulosis Status: Acute (5) Epigastric pain Status: Acute Core Measure Documentation - Palliative Care Palliative Care/ Comfort Measures: Not Applicable - Core Measures Any of the following diagnoses?: none Exam - Physical Exam Narrative exam: Not in cardiopulmonary distress. The patient appeared well nourished and normally developed. Vital signs as documented. Head exam is unremarkable. No scleral icterus . Neck is without jugular venous distension, thyromegaly, or carotid bruits. Lungs are clear to auscultation. Cardiac exam reveals regular rate and Rhythm. Abdominal exam reveals normal bowel sounds, nontender, no organomegaly. Extremities are nonedematous and both femoral and pedal pulses are normal. 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 No focal weakness. - Constitutional Vitals: Temp Pulse Resp BP Pulse Ox 97.5 F L 56 L 18 94/57 97 09/26/20 07:28 09/26/20 08:45 09/26/20 07:28 09/26/20 07:28 09/26/20 07:28 Plan Activity: no restrictions Weight Bearing Status: Full Weight Bearing Diet: regular Follow up with: JOSSELYN GARRIDO MD [Primary Care Provider] - 7 Days AREN FERGUSON MD [Staff Physician] - 6 Weeks Prescriptions: Amoxicillin/K Clav Tab [Augmentin 875 mg] 1 tab PO Q12HR #10 tab Pantoprazole [Protonix TAB] 40 mg PO DAILY #30 tablet
[2020-09-26 13:55] VITALS: BP 122/63
== END 2020-09-26 14:59 | disposition home or self-care (01) | DRG 391 ==
LOC: ED 10:28 → 4A 23:45 → OBSVTOIN 09-22 16:03
PROVIDERS: ADMIT Hospitalist; ATTEND Internal Medicine
DX: K57.90 Diverticulosis of intestine, part unspecified, without perforation or abscess without bleeding (principal); N17.0 Acute kidney failure with tubular necrosis; I13.0 Hypertensive heart and chronic kidney disease with heart failure and stage 1 through stage 4 chronic kidney disease, or unspecified chronic kidney disease; M19.90 Unspecified osteoarthritis, unspecified site; K21.9 Gastro-esophageal reflux disease without esophagitis; K52.9 Noninfective gastroenteritis and colitis, unspecified; G47.33 Obstructive sleep apnea (adult) (pediatric); G89.29 Other chronic pain; M54.5 Low back pain; N18.30 Chronic kidney disease, stage 3 unspecified; I25.10 Atherosclerotic heart disease of native coronary artery without angina pectoris; F41.9 Anxiety disorder, unspecified; I50.9 Heart failure, unspecified; Z79.899 Other long term (current) drug therapy; Z88.8 Allergy status to other drugs, medicaments and biological substances; Z79.891 Long term (current) use of opiate analgesic; Z79.01 Long term (current) use of anticoagulants; Z71.6 Tobacco abuse counseling; Z90.79 Acquired absence of other genital organ(s); Z87.891 Personal history of nicotine dependence; Z85.46 Personal history of malignant neoplasm of prostate; Z86.73 Personal history of transient ischemic attack (TIA), and cerebral infarction without residual deficits; Z82.49 Family history of ischemic heart disease and other diseases of the circulatory system
CPT/HCPCS: 36415; 71046; 71250; 74176; 76770; 78452; 78580; 80048; 80053; 81001; 82570; 82962; 83036; 83690; 83880; 83970; 84300; 84484; 85025; 85379; 93005; 93017; 93306; 94640; 94644; 96365; 96375; G0378; A9270-GY; A9502; A9540; C9113; J1170; J1644; J2405; J2543; J2785